=== PATIENT | female | born 1945 | race Caucasian/White ===

== ENCOUNTER 2025-02-12 14:41 | Outpatient (AMB) | payer OTHER, SELFPAY ==
--- NOTE | 2025-02-12 14:49 | A.OFFVIS_ITS ---
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 EMG/NCS done on 11/20/24. Right hand symptoms greater than left however she says the left is not too far behind from being as bad as her right hand. She expresses difficulty with dressing herself (buttoning shirt, bra, etc) and holding onto objects from lack of strength and roll form operator. Reports trouble and pain with opening jars and water bottles. She says she feels numbness and tingling in all of her bilateral digits but worse in the right 3rd, 4th, and 5th digits. She reports cramping of her right 4th digit. Her symptoms are starting to radiate up into her bilateral elbows. Patient would like to discuss surgery. Hx of type 2 diabtes, last A1c was ~7.8 less than 2 months ago. Labs are done at [facility]. Allergies gabapentin Adverse Reaction (Severe, Verified 02/12/25 14:52) Confusion HPI HPI ELECTRICAL SYSTEMS DESIGN ENGINEER: B/L hands, EMG done: Details: Maryjo is a 79 year old ambidextrous female who presents today for a new patient visit for evaluation of her bilateral upper extremities. EMG/NCS done on 11/20/24. Right hand symptoms greater than left however she says the left is not too far behind from being as bad as her right hand. She expresses difficulty with dressing herself (buttoning shirt, bra, etc) and holding onto objects from lack of strength and roll form operator. Reports trouble and pain with opening jars and water bottles. She says she feels numbness and tingling in all of her bilateral digits but worse in the right 3rd, 4th, and 5th digits. She reports cramping of her right 4th digit. Her symptoms are starting to radiate up into her bilateral elbows. Patient would like to discuss surgery. Hx of type 2 diabtes, last A1c was ~7.8 less than 2 months ago. Labs are done at [facility]. [facility] Social History (Updated 02/12/25 @ 14:53 by VARUN Cunningham) Alcohol intake: former Patient Tobacco Use Status: Former Tobacco user Current occupational status: retired Current occupation: ambidextrous/left hand favored Review of Systems Const All systems reviewed & are unremarkable except as noted in HPI and below Physical Exam Vital Signs: BMI result Body Mass Index 29.5 Extrem Other: Neuro: Decreased sensation in the median nerve distribution of bilateral hands in the office today Significant thenar wasting bilaterally, more significant on the right No evidence of intrinsic wasting. Week APB muscle firing and good finger cross. Vascular: Capillary refill brisk. ROM: There is visible and palpable locking and catching of the right ring finger in a flexed position Patient can make a fist and extend all other digits. Skin: No lacerations or abrasions noted. General: No ecchymosis. No erythema or evidence of infection. Assessment & Plan Assessment & Plan (1) Bilateral carpal tunnel syndrome: Code(s): G56.03 - Carpal tunnel syndrome, bilateral upper limbs Category: Medical (2) Trigger finger, right ring finger: Code(s): M65.341 - Trigger finger, right ring finger Category: Medical Plan 1. Right ring finger trigger finger 2. Right carpal tunnel syndrome Symptoms intermittent, daily, worse at night I educated the patient about the condition. I discussed both operative and nonoperative treatment options. The patient would like to proceed with surgery. The risks and benefits of operative treatment were discussed with the patient and the patient wishes to proceed with surgery. These risks include, but are not limited to, risk of damage to blood vessels, nerves, tendons, infection, recurrence, incomplete relief of preoperative symptoms, persistent pain, possible need for further surgery, and the risks associated with regional blocks and/or anesthesia. Plan is to take the patient to the operating room at some point in the next few weeks for the following procedures: 1. Right carpal tunnel release under local 2. Right ring finger trigger release under local All of the preoperative paperwork including the consent was discussed today. All of the patient's questions were answered in the clinic today. The patient understands that they will be in contact with our medical or surgical instrument maker to discuss scheduling their procedure. Patient reports diabetes, last A1c 7.8 Denies blood thinners, asthma, heart issues, lung issues, kidney issues, or current smoking. 2. Left carpal tunnel syndrome Symptoms intermittent daily, worse at night Patient would like to proceed with operative intervention of the right prior to any intervention of the left Patient is educated that if she is recovering well her postoperative visit, we can get her registered for left-sided surgery Patient is amenable to this plan Coding Level of Care Code New Pt Level 4 (99107) Diagnoses Bilateral carpal tunnel syndrome G56.03 Trigger finger, right ring finger M65.341
[2025-02-12 14:51] VITALS: BMI 29.5
--- OUTSIDE RECORDS SUMMARY | 2025-02-12 16:54 | XMS_ITS | Clinical Summary ---
Author Organization [facility] Address [address] [place] [address] Care Team Providers Care Programmer Operator Numerical Control Name Role Phone Unavailable Primary Care Provider Unavailabl e Allergies Active Allergy Reactions Criticality Noted Date Comments Gabapentin Other (See Comments) High 11/11/2021 Confusion, forgetfulness Orphenadrine 01/31/2007 Other 02/02/2009 Other reaction(s): GI intolerance Sugar levels spiked Oxycodone Other (See Comments) 07/08/2021 hallucinations Medications Medication Sig Dispensed Refills Start Date End Date Status Lancets MISC Use to test blood sugar TID. 100 each 5 07/16/2021 Active glucose blood (Cool Blood Glucose Test Strips) test strip Use to test blood sugar TID. 100 each 5 07/16/2021 Active Insulin Pen Needle (Pen [place]) 32G X 4 MM MISC Inject 1 Units under the skin 4 (four) times a day. 100 each 5 07/16/2021 Active SYRINGE-NEEDLE, DISP, 3 ML (B-D 3CC LUER-BLANCA SYR 25GX1 ) 25G X 1 3 ML MISC 1 Units by Does not apply route daily. 13 each 0 07/16/2021 Active B-D UF III MINI PEN NEEDLES 31G X 5 MM MISC USE DIRECTED 4 TIMES DAILY 0 11/16/2021 Active clotrimazole-betame thasone (LOTRISONE) cream Apply topically 2 (two) times a day. 30 g 0 12/14/2021 Active HumaLOG KWIKPEN 200 UNIT/ML SOPN INJECT 22 UNITS SUBQUTANEOUSLY BEFORE A MEAL THREE TIMES DAILY 0 11/29/2022 Active Lantus SoloStar 100 UNIT/ML injection ADMINISTER 30 UNITS UNDER THE SKIN AT BEDTIME 0 11/28/2022 Active ibandronate (BONIVA) 150 MG tabletIndications:A ge-related osteoporosis without current pathological fracture Take 1 tablet (150 mg total) by mouth every 30 (thirty) days. Take in AM with glass of water prior to food, don't lie down for 30 minutes. 1 tablet 3 12/15/2022 Active metroNIDAZOLE, TOPICAL, 0.75 % LOTNIndications:Ros acea Apply 1 application topically 2 (two) times a day. Apply a small amount to clean, dry face focus on forehead, temples, and cheeks 60 mL 3 12/15/2022 Active Continuous Blood Gluc Sensor (FreeStyle Talat 2 Sensor) MISCIndications:Typ e 2 diabetes mellitus without complication, without long-term current use of insulin (HCC) Inject 1 Device under the skin every 14 (fourteen) days. 3 each 4 12/15/2022 Active Continuous Blood Gluc Machinery Repair Maintenance Supervisor (FreeStyle Talat 2 [place]) DEVIIndications:Typ e 2 diabetes mellitus without complication, without long-term current use of insulin (HCC) 1 Device by Does not apply route 4 (four) times a day before meals and at bedtime. 1 each 0 12/15/2022 Active fluticasone (FLONASE) 50 MCG/ACT nasal sprayIndications:Se asonal allergies spray/apply 1 spray in each nostril daily. 16 g 3 01/10/2023 Active Multiple Vitamin (multi-vitamin) tablet Take 1 tablet by mouth daily. 30 tablet 0 04/11/2023 Active aspirin 81 MG chewable tabletIndications:A utoinflammatory syndrome, unspecified (HCC),Arthralgia of both lower legs,Essential tremor Chew 1 tablet (81 mg total) by mouth every night at bedtime. 90 tablet 1 04/11/2023 Active Nebulizers (Compressor/Nebuliz er) MISCIndications:Aut oinflammatory syndrome, unspecified (HCC),Moderate persistent asthma with acute exacerbation 1 Device by Does not apply route every 8 (eight) hours as needed (wheezing and shortness of breath). Length of use is life time 1 each 0 04/11/2023 Active pantoprazole (PROTONIX) 20 MG tabletIndications:G astroesophageal reflux disease without esophagitis Take 1 tablet (20 mg total) by mouth every morning on an empty stomach. 90 tablet 2 07/20/2023 Active levocetirizine (XYZAL) 5 MG tabletIndications:S easonal allergies Take 1 tablet (5 mg total) by mouth every evening. 90 tablet 1 07/20/2023 Active atorvastatin (LIPITOR) tablet 40 mgIndications:Mixed hyperlipidemia Take 1 tablet (40 mg total) by mouth every evening. 90 tablet 2 07/20/2023 Active Cholecalciferol (D3-1000) 25 MCG (1000 UT) capsuleIndications: Age-related osteoporosis without current pathological fracture Take 1,000 Units by mouth daily. 90 capsule 1 07/20/2023 Active cilostazol (PLETAL) 50 MG tabletIndications:A utoinflammatory syndrome, unspecified (HCC) Take 1 tablet (50 mg total) by mouth 2 (two) times a day. 180 tablet 1 07/20/2023 Active Active Problems Problem Noted Date Diagnosed Date Left lower quadrant abdominal pain 04/13/2022 Abdominal pain 03/24/2022 Diverticulosis of sigmoid colon 03/24/2022 BMI 26.0-26.9,adult 03/24/2022 PVD (peripheral vascular disease) 12/03/2021 Provoked seizure 09/14/2021 Vitamin B12 deficiency 09/14/2021 Essential tremor 09/14/2021 Syncope and collapse 07/06/2021 Bilateral carotid artery stenosis 09/04/2019 CAD (coronary artery disease) 07/31/2019 Overview: History of CABG x2 June 2016; [facility] Carotid artery stenosis, symptomatic 07/31/2019 Hx of CABG 07/31/2019 Mixed hyperlipidemia 07/30/2019 TIA (transient ischemic attack) 07/30/2019 Achilles tendonitis 11/09/2011 Essential hypertension 01/31/2011 Type 2 diabetes mellitus wit hout complication, without long-term current use of insulin 12/24/2010 Overview: Diabetes Plan of Care 06/22/2012 Plan: Pt is up to date on her DM metrics Family history of colon cancer 02/02/2009 Onychomycosis 05/09/2008 Duodenal ulcer without hemor rhage or perforation and without obstruction 11/16/2007 Immunizations Name Administration Dates Next Due Influenza Trivalent (Fluzone /Afluria) 5.0mL Multi-dose Vial 06/18/2012,07/08/2011 Influenza Vaccine, Unspecified formulation 06/11,05/11/2009,07/31/2006 Tdap 05/29/2017 Family History Medical History Relation Name Comments Diabetes Brother Heart disease Brother Hyperlipidemia Brother Hypertension Brother Cancer Mother Hypertension Mother Heart disease Sister Relation Name Status Comments Brother Alive Mother Sister Social History Tobacco Use Types Packs/Day Years Used Date Smoking Tobacco: Former Cigarettes 2 Q uit: 07/06/1998 Smokeless Tobacco: Never Tobacco Cessation:Counseling Given: Not Answered Alcohol Use Standard Drinks/Week Comments Never 0 (1 standard drink = 0.6 oz pur e alcohol) Sex and Gender Information Value Date Recorded Sex Assigned at Female 07/06/2021 12:54 PM EST Gender Identity Not on file Sexual Orientation Not on file Job Start Date Occupation Industry Not on file Not on file Not on file Last Filed Vital Signs Vital Sign Reading Time Taken Comments Blood Pressure 122/51 04/11/2023 10:57 AM EDT Pulse 71 04/11/2023 10:57 AM EDT Temperature 36.8 C (98.3 F) 07/19/2022 1:11 PM EST Respiratory Rate 16 04/11/2023 10:57 AM EDT Oxygen Saturation 98% 04/11/2023 10:57 AM EDT Inhaled Oxygen Concentration - - Weight 82.6 kg (182 lb 1 oz) 04/11/2023 10:57 AM EDT Height 167.6 cm (5' 6 ) 04/11/2023 10:57 AM EDT Body Mass Index 29.39 04/11/2023 10:57 AM EDT Plan of Treatment Health Maintenance Due Date Last Done Comments Colon Cancer Screening (FIT-DNA q3yrs) 1945 Hepatitis C Screening 1945 Pneumococcal Vaccine (1 of 2 - PCV) 12/22/1953 Diabetes: Eye Exam (No Retinopathy) 12/22/1965 Osteoporosis Screening (DEXA Scan) 12/22/2012 RSV Adult > 60+ Yrs or (1 - 1-dose 75+ series) 12/22/2022 Diabetes: Microalbumin Test 04/07/2023 04/07/2022 Hemoglobin A1C Due 06/16/2023 12/15/2022, 1 09/18/2021, 04/07/2022, Additional history exists Depression Screening 12/16/2023 12/15/2022, 12/15/2022, 07/19/2022, Additional history exists Diabetes: Foot Exam 12/16/2023 12/15/2022 Fall Risk Assessment 12/16/2023 12/15/2022, 12/15/2022, 07/19/2022, Additional history exists Preventative Health Evaluation 12/16/2023 12/15/2022, 12/15/2022, 07/19/2022, Additional history exists BMI Counseling 04/11/2024 04/11/2023, 12/26, 12/15/2022, Additional history exists COVID-19 Vaccine ( season) 2024 02/08/2021, 12/26/2020 DTap / Tdap / Td (2 - Td or Tdap) 05/29/2027 05/29/2017 Influenza Vaccine Discontinued 06/18/2012, 07/08/2011 Hepatitis B Vaccines Aged Out No long er eligible based on patient's age to complete this topic RSV Ped < 20 months Aged Out No longe r eligible based on patient's age to complete this topic Shingrix-Zoster Vaccine Discontinued Advance Directives For more information, please contact: [phone] Latest Code Status on File Code Status Date Activated Date Inactivated Comments Full Code 07/06/2021 5:04 PM 07/17/2021 3:16 AM This code status was ascertained in the following way: discussion with patient .
== END 2025-02-12 15:32 | disposition home or self-care (01) ==
LOC: HO.HOS 14:42
PROVIDERS: PCP Internal Medicine
DX: G56.03 Carpal tunnel syndrome, bilateral upper limbs (principal); M65.341 Trigger finger, right ring finger
CPT/HCPCS: 99204

== ENCOUNTER → 2025-02-12 14:41 | Outpatient (BNVA) | payer OTHER, SELFPAY | PROVIDERS: PCP Internal Medicine ==

== ENCOUNTER 2025-03-12 06:09 | Day surgery (SDC) | payer OTHER, SELFPAY ==
--- OUTSIDE RECORDS SUMMARY | 2025-02-18 14:23 | XMS_ITS | Clinical Summary ---
Author Organization [facility] Address [address] [place] [address] Care Team Providers Care Dental Instructor Name Role Phone Unavailable Primary Care Provider [...] 5 07/16/2021 Active Insulin Pen Needle (Pen [place]) 32G X 4 MM MISC Inject 1 [...] each 4 12/15/2022 Active Continuous Blood Gluc Credit Risk Modeler (FreeStyle Talat 2 [place]) DEVIIndications:Typ e 2 diabetes mellitus without complication, [...] Overview: History of CABG x2 June 2016; [facility] Carotid artery stenosis, symptomatic 07/31/2019 Hx [...] Advance Directives For more information, please contact: [phone] Latest Code Status on File Code Status Date Activated Date Inactivated Comments Full Code 07/06/2021 5:04 PM 07/17/2021 3:16 AM This code status was ascertained in the following way: discussion with patient .
[2025-03-12 07:02] VITALS: BMI 29.5
[2025-03-12 07:05] VITALS: BP 126/51; PULSE 74; RESP 18; TEMP 36.7; O2SAT 97
--- NOTE | 2025-03-12 08:33 | MHC.SHP ---
Pre-Procedural Eval Section A - 24 Hr Update-Section A only Date of Service: 03/12/25 The patient is an INPATIENT: No Changes since office visit: No Cold of Flu in the past 2 weeks, No New Medical Problems, No Changes in Medication and No Patient answered all questions The patient has been examined within 24 hours of the surgical procedure. The History & Physical has been completed within 30 days and I have reviewed it.: Yes Section B - Complete if H&P > 30 days Chief Complaint: Carpal tunnel syndrome, right upper limb Allergies: Allergies Allergy/AdvReac Type Severity Reaction Status Date / Time gabapentin AdvReac Severe Confusion Verified 03/12/25 07:08 Plan Diagnosis/Plan: Unchanged I have reviewed the history and physical and performed a pertinent physical examination on my patient. No changes have occurred unless specified. Time Spent With Patient Time: Total time managing care of this patient today ____ minutes.
--- NOTE | 2025-03-12 08:34 | P.OP_ITS ---
Operative Note Operative Note Date of Service: 03/12/25 Narrative: Preop diagnosis: 1. Right Carpal tunnel syndrome 2. Right ring finger trigger finger Postop diagnosis: same Procedure: 1. Right Carpal tunnel release 2. Right ring finger trigger release Surgeon: Carolyn Wesley MD Computer Programmer Chief: None Anesthesia: local block using 1% lidocaine with epinephrine Findings: Thickened transverse carpal ligament. EBL: Less than 5 mL Specimens: None Complications: None Disposition: Brought to recovery room in stable condition Plan: Follow-up for 10-14 days for wound check and suture removal Indications: The patient is 79 years old, with right carpal tunnel syndrome and a right ring finger trigger finger that have been unresponsive to nonoperative management. The risks and benefits of operative treatment including but not limited to risk of damage to blood vessels, nerves, tendons, infection, persistent pain, persistent symptoms, or possible need for additional surgery were discussed with the patient and the patient wishes to proceed with surgery. Procedure: Once consent was obtained a local block was performed using a combination of 1% lidocaine with epinephrine. The patient was then brought back to the operating suite and placed on the operative table in supine position. The right upper extremity was prepped and draped in a standard surgical fashion. Once assured that we had a good block, a 1.5 cm oblique incision was made centered over the A1 leighton of the right ring finger . The incision was made through the skin to the subcutaneous tissues using a #15 blade. Careful dissection was made down to the level of the A1 leighton using tenotomy scissors, with care being taken to protect the nearby neurovascular structures. A longitudinal incision was made in the A1 leighton 1st using a #15 blade, then using tenotomy scissors under direct visualization. The A1 leighton was noted to be thickened. Following our A1 leighton release, we no longer saw any locking or catching of the digit with flexion and extension. Once assured that we had a good block, a 2.0 cm longitudinal incision was made centered over the carpal tunnel. The incision was made through the skin to the subcutaneous tissues using a #15 blade. Dissection was made down to the level of the transverse carpal ligament with care being taken to protect the palmar cutaneous nerve. Once the transverse carpal ligament was clearly visualized, a longitudinal incision was made in the transverse carpal ligament 1st using a #15 blade, then using tenotomy scissors under direct visualization. Care was taken to look for and protect the motor branch of the median nerve when seen in this area. Once satisfied with our carpal tunnel release the wound was copiously irrigated with normal saline and hemostasis was obtained with a brief period of local pressure. The skin edges were reapproximated with some 5.0 nylon suture material and a sterile dressing was applied. The patient appears to have tolerated the procedure well and with no complications. All digits were well vascularized at the conclusion of the case.
--- NOTE | 2025-03-12 09:31 | PC.NURSE ---
pharmacy did not receive orders from Dr. Wesley office to mix lidocaine injections per pharmacy. Medications pulled from PACU pixus with Dr. Wesley.
[2025-03-12 09:32] VITALS: BP 107/44; PULSE 82; RESP 16; O2SAT 95
== END 2025-03-12 09:41 | disposition home or self-care (01) ==
PROVIDERS: PCP Internal Medicine; Visit Provider Orthopaedic Surgery
PROC: (CPT 64721; principal; 2025-03-12 07:30)
PROC: (CPT 26055; 2025-03-12 07:30)
DX: G56.01 Carpal tunnel syndrome, right upper limb (principal); M65.341 Trigger finger, right ring finger; R20.0 Anesthesia of skin; R20.2 Paresthesia of skin; E11.9 Type 2 diabetes mellitus without complications; Z88.8 Allergy status to other drugs, medicaments and biological substances; Z87.891 Personal history of nicotine dependence
CPT/HCPCS: 64721; 26055; J0165; J2003; J2004

== ENCOUNTER → 2025-03-12 06:09 | Outpatient (BNV) | payer OTHER, SELFPAY | PROVIDERS: PCP Internal Medicine; Visit Provider Orthopaedic Surgery | DX: G56.01 Carpal tunnel syndrome, right upper limb (principal); M65.341 Trigger finger, right ring finger | CPT/HCPCS: 26055; 64721 ==

== ENCOUNTER 2025-03-26 13:58 | Outpatient (AMB) | payer OTHER, SELFPAY ==
--- NOTE | 2025-03-26 14:07 | MHC.OFFVIS ---
Vital Signs 03/26/25 14:13 Height 5 ft 6 in Weight 184 lb BMI 29.7 Handedness Ambidextrous Intake Visit Reasons: PO-Rt CTR, Rt RF Trigger 03/12/25 Intake Note: Maryjo is a 79 year old ambidextrous female who presents today post operatively status post right carpal tunnel release and right ring finger trigger release, DOS: [address] Carolyn Wesley. Patient reports she feels pretty good. She states after this procedure she has more sensitivity in the entire right hand. Expresses her trigger finger has resolved. She is able to make a closed fist. Denies any discharge from her incisions. Sutures removed and steri strips have been applied today. Allergies gabapentin Adverse Reaction (Severe, Verified 03/26/25 14:13) Confusion HPI HPI PO-Rt CTR, Rt RF Trigger 03/12/25: Details: Maryjo is a 79 year old ambidextrous female who presents today post operatively status post right carpal tunnel release and right ring finger trigger release, DOS: [address] Carolyn Wesley. Patient reports she feels pretty good. She states after this procedure she has more sensitivity in the entire right hand. Expresses her trigger finger has resolved. She is able to make a closed fist. Denies any discharge from her incisions. Reports ongoing numbness and tingling in the left hand, expresses interest in surgical intervention for this side. Sutures removed and steri strips have been applied today. [facility] Medical History (Updated 03/12/25 @ 07:07 by Lakeisha Cheek RN) Hypertension Diabetes Hypercholesteremia Surgical History (Updated 03/26/25 @ 14:16 by VARUN Cunningham) Status post trigger finger release Status post carpal tunnel release Hx of CABG Hx of cardiac catheterization Social History Household Members Other:: lives in an in-law apartment at daughter's home Are you a primary customer care manager to a significant other at home: No Do you presently have visiting nurse or other home services: No Alcohol intake: former Patient Tobacco Use Status: Former Tobacco user Current occupational status: retired Current occupation: ambidextrous/left hand favored Review of Systems Const All systems reviewed & are unremarkable except as noted in HPI and below Physical Exam Vital Signs: BMI result Body Mass Index 29.7 Extrem Other: Neuro: Decreased sensation in the median nerve distribution of bilateral hands in the office today, her right side does have improved sensation from prior to surgery Significant thenar wasting bilaterally, more significant on the right No evidence of intrinsic wasting. Week APB muscle firing and good finger cross. Vascular: Capillary refill brisk. ROM: There is no further visible and palpable locking and catching of the right ring finger in a flexed position Patient can make a fist and extend all digits. Skin: Well approximated and well healing incision sites noted on volar right wrist and over A1 leighton right ring finger No lacerations or abrasions noted. General: No ecchymosis. No erythema or evidence of infection. Assessment & Plan Assessment & Plan (1) Trigger finger, right ring finger: Code(s): M65.341 - Trigger finger, right ring finger Category: Medical (2) Bilateral carpal tunnel syndrome: Code(s): G56.03 - Carpal tunnel syndrome, bilateral upper limbs Category: Medical Plan 1. Carpal tunnel syndrome, left Symptoms intermittent, daily, worse at night I educated the patient about the condition. I discussed both operative and nonoperative treatment options. The patient would like to proceed with surgery. The risks and benefits of operative treatment were discussed with the patient and the patient wishes to proceed with surgery. These risks include, but are not limited to, risk of damage to blood vessels, nerves, tendons, infection, recurrence, incomplete relief of preoperative symptoms, persistent pain, possible need for further surgery, and the risks associated with regional blocks and/or anesthesia. Plan is to take the patient to the operating room at some point in the next few weeks for the following procedures: 1. Left carpal tunnel release under local All of the preoperative paperwork including the consent was discussed today. All of the patient's questions were answered in the clinic today. The patient understands that they will be in contact with our automatic fabric cutter to discuss scheduling their procedure. Patient reports diabetes, last A1c 7.6 Denies blood thinners, asthma, heart issues, lung issues, kidney issues, or current smoking. 2. Carpal tunnel syndrome, right, status post carpal tunnel release 3. Status post right ring finger trigger release DOS 03/12/2025 Patient appears to be recovering well postoperatively Patient is educated about the typical recovery course No acute follow-up indicated, as patient appears to be recovering very well Patient is amenable to this plan Coding Level of Care Code Est Pt Level 4 (60226) Diagnoses Trigger finger, right ring finger M65.341 Bilateral carpal tunnel syndrome G56.03
[2025-03-26 14:13] VITALS: BMI 29.7
--- OUTSIDE RECORDS SUMMARY | 2025-03-26 14:40 | XMS_ITS | Clinical Summary ---
Author Organization [facility] Address [address] [place] [address] Care Team Providers Care Secretary To Board Of Commissioners Name Role Phone Unavailable Primary Care Provider [...] 5 07/16/2021 Active Insulin Pen Needle (Pen [place]) 32G X 4 MM MISC Inject 1 [...] each 4 12/15/2022 Active Continuous Blood Gluc Forest Nursery Supervisor (FreeStyle Talat 2 [place]) DEVIIndications:Typ e 2 diabetes mellitus without complication, [...] Advance Directives For more information, please contact: [phone] Latest Code Status on File Code Status Date Activated Date Inactivated Comments Full Code 07/06/2021 5:04 PM 07/17/2021 3:16 AM This code status was ascertained in the following way: discussion with patient .
--- OUTSIDE RECORDS SUMMARY | 2025-03-26 14:40 | XMS_ITS ---
Author Name [facility] Organization Unknown Results Test Name/Text Value Interpretation Date Range Source COLLAGEN TYPE I C-TELOPEPTIDE 461.0 pg/mL Normal 09/29/2023 - [facility] CALCIUM 9.6 mg/dL Normal 09/19/2023 8.5 - 10.1 [facility] CHLORIDE 108.0 mmol/L Above high normal 09/19/2023 98 - 107 [facility] ALBUMIN 3.6 g/dL Normal 09/19/2023 3.4 - 5 [facility] BUN 31.0 mg/dL Above high normal 09/19/2023 7 - 18 [facility] A/G RATIO 1.0 g/dL Normal 09/19/2023 [facility] AST (SGOT) 14.0 U/L Below low normal 09/19/2023 15 - 37 C [facility] CO2 29.0 mmol/L Normal 09/19/2023 21 - 32 [facility] BUN/CREAT.RATIO 23.3 Normal 09/19/2023 [facility] PROTEIN, TOTAL 7.1 g/dL Normal 09/19/2023 6.4 - 8.2 [facility] ALKALINE PHOSPHATASE 53.0 U/L Normal 09/19/2023 50 - 136 [facility] CREATININE 1.33 mg/dL Above high normal 09/19/2023 0.55 - 1. 3 [facility] SODIUM 142.0 mmol/L Normal 09/19/2023 136 - 145 [facility] GLUCOSE 109.0 mg/dL Above high normal 09/19/2023 74 - 100 [facility] ALT (SGPT) 21.0 U/L Normal 09/19/2023 12 - 78 [facility] POTASSIUM SERUM 4.4 mmol/L Normal 09/19/2023 3.5 - 5.1 [facility] GLOBULIN 3.5 g/dL Normal 09/19/2023 2.4 - 4.2 [facility] BILIRUBIN,TOTAL 0.7 mg/dL Normal 09/19/2023 0.2 - 1 [facility] PATIENT FASTING? NO Normal [facility]19[facility] WITH [facility]FLEX T4 FREE 1.51 uIU/mL Normal 09/19/2023 0.3 5 - 4.5 [facility] VITAMIN D (25-HYDROXY) 29.6 ng/mL Below low normal 30 - 100 [facility] GFRE 41.0 Below low normal 09/19/2023 60 [facility] MICROALB[facility] RATIO 9.5 ug/mg CR Normal 09/19/2023 - 30 [facility] CREATININE URINE 116.0 mg/dL Normal 09/19/2023 [facility] MICROALBUMIN,URINE 1.1 mg/dL Normal 09/19/2023 [facility] Encounters Encounter Type Encounter Reason Primary Diagnosis Location Date Ambulatory [facility] 09/21/2023 Ambulatory [facility] 09/19/2023 Care Team Organization Name Specialty Phone Email Start Date End Da shauna [facility] Manager ([facility]) NAVEEN Executive Staff Assistant 12/25/2024 [facility] No provided Primary Care 09/21/2023 [facility] SANGITA HODGE-SAYED Primary [facility]
--- OUTSIDE RECORDS SUMMARY | 2025-03-26 14:40 | XMS_ITS | Patient Health Record ---
Author Organization [facility] Address [address] [place] [address] Care Team Providers Care Truck Bench Mechanic Name Role Phone BOONE MENDIOLA DO Primary Care Provider Dean Wang Unavailable [phone] CHAS BROCK MD Unavailable Unavailable Reason For Referral No Information Medications Medication SIG (Take, Route, Frequency, Duration) Notes Start Date End Date Status glipiZIDE 10 MG 1 tablet 30 minutes before breakfast Orally Once a day Active metFORMIN HCl 1000 MG 1 tablet with a me al Orally Once a day Active Atenolol 50 MG 1 tablet Orally Once a day Active Furosemide 20 MG 1 tablet Orally Once a day; Duration: 30 day(s) Active Famotidine 20 MG 1 tablet at bedtime as needed Orally Once a day Active Atorvastatin Calcium 40 MG 1 tablet Oral ly Once a day Active Cilostazol 100 MG 1 tablet 30 minutes before or 2 hours after breakfast and dinner Orally Twice a day Active Meclizine HCl 25 MG 1 tablet as needed O rally Once a day Active Aspirin Adult 325 MG 1 tablet Orally Onc e a day Active Gabapentin 100 MG 1 capsule Orally Onc e a day Active Social History Tobacco Use: Social History Observation Description Date Details (start date - stop date) Never Smoker NA - NA Smoking: Question Answer Notes Are you a: nonsmoker quit in 1994 Problems Problem Type SNOMED Code ICD Code Onset Dates Problem Status W/U Status Risk Notes Problem Peripheral vascular disease (914656281) PAD (peripheral artery disease) (I73.9) Active confirmed Problem Arteriosclerosis of coronary artery bypass graft (737127993) 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 (I25.810) Active confirmed Problem Hyperlipidaemia (95316507) Hyperlipidemia, unspecified hyperlipidemia type (E78.5) Active confirmed Problem Type 2 diabetes mellitus with peripheral angiopathy (531046254) Type 2 diabetes mellitus with diabetic peripheral angiopathy without gangrene, without long-term current use of insulin (E11.51) Active confirmed Problem Mixed hyperlipidemia (005763895) Mixed dyslipidemia (E78.2) Active confirmed Plan Of Treatment Future Test Test Name Order Date Echocardiogram 04/07/2020 L CATH W/GRAPH 04/07/2020 Insurance Providers Payer Name Payer Address Payer Phone Subscriber Number Group Number Insured Name Patient Relationship to Insured Coverage Start Date Coverage End Date [employer] GOLD PLUS [place] [address] [address] [place] [address] [phone] [id number] NICOLAS PERALTA Self - patient is the insured MEDICAID TMHP [address] [place], [place] [id number] NICOLAS PERALTA Self - patient is the insured Medical (General) History Medical History History ICD Code TIA (transient ischemic attack) TIA (transient ischemic attack) G45.9 Surgical History Surgery Date(Month/Year) vaginal delivery 1985 Hospitalization History Reason Date(Month/Year) TIA 07/2019
--- OUTSIDE RECORDS SUMMARY | 2025-03-26 14:41 | XMS_ITS | Patient Health Record ---
Author Organization [facility], Address [address] [facility] Rachel Claudio [place] [id number] Support Name Relationship Address Phone Maryjo Lagunas Guarantor Unknown [phone] Reason For Referral No Information Medications Medication SIG (Take, Route, Frequency, Duration) Notes Start Date End Date Status Glimepiride 4 MG 2 tablets Oral Once a day Active Metoprolol Tartrate 25 MG Oral; Duration: 90 Active Atorvastatin Calcium 40 MG 1 tablet Oral Once a day Active metFORMIN HCl 1000 MG 1 tablet with meal s Oral Twice a day Active Furosemide 20 MG 1 tablet Orally Once a day Active Famotidine 20 MG 1 tablet Oral Twice a day Active Aspirin 81 MG 1 tablet Orally Once a day; Duration: 30 day(s) Active Farxiga 5 MG 1 tablet Oral Once a day Active Problems Problem Type SNOMED Code ICD Code Onset Dates Problem Status W/U Status Risk Notes Problem Essential hypertension (64565361) Essential hypertension (I10) Active confirmed Problem Dyslipidemia (708331347) Dyslipidemia (E78.5) Active confirmed Problem Atherosclerotic heart disease of [place] coronary artery without angina pectoris (834377263759207) CAD in [place] artery (I25.10) Active confirmed Problem Tachycardia (5738512) Tachycardia (R00.0) Active confirmed Problem Mitral valve disorder (19861804) Mitral valve disorder (I05.9) Active confirmed Plan Of Treatment No Information
== END 2025-03-26 15:02 | disposition home or self-care (01) ==
LOC: HO.HOS 13:59
PROVIDERS: PCP Internal Medicine
DX: G56.03 Carpal tunnel syndrome, bilateral upper limbs (principal); M65.341 Trigger finger, right ring finger
CPT/HCPCS: 99214

== ENCOUNTER → 2025-03-26 13:58 | Outpatient (BNVA) | payer OTHER, SELFPAY | PROVIDERS: PCP Internal Medicine | DX: M65.341 Trigger finger, right ring finger (principal); G56.03 Carpal tunnel syndrome, bilateral upper limbs; Z98.890 Other specified postprocedural states | CPT/HCPCS: 99212 ==

== ENCOUNTER 2025-05-05 06:48 | Day surgery (SDC) | payer OTHER, SELFPAY ==
--- OUTSIDE RECORDS SUMMARY | 2025-03-28 09:30 | XMS_ITS | Encounter Summary ---
Author Organization [facility] Address [address] [place] [address] Care Team Providers Care Fuels Sales Representative Name Role Phone Maria Lloyd MD Primary Care Provider [phone] Reason for Visit * Reason Comments Peripheral Vascular Disease Encounter Details Date Type Department Care Team ([facility] st Contact Info) Description 03/28/2025 9:30 AM EDT Office Visit Vascular Surgery - [facility] [address] [place] [address] Doc Lantigua MD [address] [place] [address] Social History Tobacco Use Types Packs/Day Years Used Date Smoking Tobacco: Former Cigarettes Q uit: 07/06/1998 Smokeless Tobacco: Never Alcohol Use Standard Drinks/Week Comments Not Currently 0 (1 standard drink = 0.6 oz pur e alcohol) Housing Instability Answer Date Recorde d Are you worried that in the next 2 months you may not have stable housing? No 11/24/2024 Food Access & Nutrition Answer Date Rec orded Do you have access to a vari ety of food including fruits and vegetables? Yes 11/24/2024 Access to Healthcare Answer Date Record ed Within the last 3 months, shira w many times did you visit the emergency department for your medical care? 2 11/24/2024 Health Literacy Answer Date Recorded How often do you need to hav e someone help you when you read instructions, pamphlets, or other written material from your doctor or pharmacy? Rarely 11/24/2024 Caregiver: How often do you need to have someone help you when you read instructions, pamphlets, or other written material from your doctor or pharmacy? Not on file 11/24/2024 Financial Risk Answer Date Recorded How hard is it for you to pa y for the very basics like food, housing, medical care, and air conditioning / heating? Not very hard 11/24/2024 Transportation Answer Date Recorded Has the lack of transportati on kept you from meetings, work, or from getting things needed for daily living? No Has the lack of transportati on kept you from medical appointments or from getting medications? No 11/24/2024 Social Isolation Answer Date Recorded How often do you feel lonely or isolated from those around you? Sometimes 11/24/2024 Food Risk Answer Date Recorded Within the past 12 months we worried whether our food would run out before we got money to buy more. Never true 11/24/2024 Within the past 12 months th e food we bought just didn't last and we didn't have money to get more. Never true 11/24/2024 Dependent Care Answer Date Recorded Do you need help finding or paying for care for your loved ones. For example, child support specialist or elderly care for an older adult? No 11/24/2024 Education Answer Date Recorded Do you think completing more education or training, like finishing a GED, going to college, or learning a trade, would be helpful for you? Yes 11/24/2024 Employment and Income Answer Date Recor ded During the last four weeks, have you been actively looking for work? No 11/24/2024 Living Situation Answer Date Recorded What is your living situation? 0 11/24/2024 Comments No Sex and Gender Information Value Date Recorded Sex Assigned at Female 01/30/2025 4:16 PM EDT Legal Sex Female 12:34 PM EST Gender Identity Female 01/30/2025 4:16 PM EDT Sexual Orientation Straight 01/30/2025 4: 16 PM EDT documented as of this encounter Last Filed Vital Signs Vital Sign Reading Time Taken Comments Blood Pressure 136/66 03/28/2025 9:06 AM EDT Pulse 80 03/28/2025 9:06 AM EDT Temperature - - Respiratory Rate 16 03/28/2025 9:06 AM EDT Oxygen Saturation - - Inhaled Oxygen Concentration - - Weight 83.9 kg (185 lb) 03/28/2025 9:06 AM EDT Height 167.6 cm (5' 6 ) 03/28/2025 9:06 AM EDT Body Mass Index 29.86 03/28/2025 9:06 AM EDT documented in this encounter Ordered Prescriptions Prescription Sig Dispense Quantity Refills Last Filled Start Date End Date cilostazoL (PLETAL) 100 mg tablet Take 1 tablet (100 mg total) by mouth 2 (two) times a day. To be started after completing the 50mg two times a day. 60 each 11 03/28/2025 documented in this encounter Plan of Treatment Upcoming Encounters Date Type Department Care Team (Late st Contact Info) Description 04/01/2025 11:00 AM EDT Office Visit Adult Medicine [address] [address] Flaco Lomas PA [address] [place] [address] 04/29/2025 11:00 AM EDT Office Visit Orthopedic Surgery [facility] [address] [address] Christopher Arshad DPM [address] [address] 05/27/2025 11:30 AM EDT Nutrition Internal Medicine - [facility] 175 [facility] [address] [place] [phone] Dorinda Cedeño, LALO [address] [place] [phone] 07/04/2025 10:00 AM EST Office Visit Vascular Surgery - [facility] [address] [address] Doc Lantigua MD [address] [address] 08/26/2025 2:00 PM EST Office Visit Endocrinology [address] [address] Yue Lloyd PA [address] [place] [address] Arrived 11/27/2025 10:45 AM EDT Ancillary Procedure [facility] [address] [place] [address] documented as of this encounter Visit Diagnoses Not on filedocumented in this encounter Discontinued Medications Medication Sig Discontinue Reason Start Date End Da te cilostazoL (PLETAL) 50 mg tabletIndications:Caroti d stenosis, asymptomatic, bilateral TAKE 1 TABLET BY MOUTH TWICE DAILY Alternate therapy 11/25/2024 03/28/2025 documented as of this encounter Additional Health Concerns Assessment Noted Time PHQ-9 Depression Total Score: 1 11/25/19 25 1:11 PM EDT documented as of this encounter Care Teams Fuels Sales Representative Relationship Specialty Start Date End Date Maria Lloyd MD [address] [place] [id number] PCP - General 07/19/23 documented as of this encounter
--- OUTSIDE RECORDS SUMMARY | 2025-03-31 12:40 | XMS_ITS | Patient Health Record ---
Author Organization [facility], Address [address] [facility] Rachel [place] [id number] Support Name Relationship Address Phone Maryjo Lagunas Guarantor Unknown [phone] Reason For Referral No Information Medications Medication [...] W/U Status Risk Notes Problem Essential hypertension (98795808) Essential hypertension (I10) Active confirmed Problem Dyslipidemia (440857408) Dyslipidemia (E78.5) Active confirmed Problem Atherosclerotic heart disease of [place] coronary artery without angina pectoris (437385923798403) CAD in [place] artery (I25.10) Active confirmed Problem Tachycardia (6808934) Tachycardia (R00.0) Active confirmed Problem Mitral valve disorder (83759627) Mitral valve disorder (I05.9) Active confirmed Plan Of Treatment No Information
--- OUTSIDE RECORDS SUMMARY | 2025-03-31 12:40 | XMS_ITS | Clinical Summary ---
Author Organization [facility] Address [address] [place] [address] Care Team Providers Care Pumper Head Name Role Phone Unavailable Primary Care Provider [...] 5 07/16/2021 Active Insulin Pen Needle (Pen [place]) 32G X 4 MM MISC Inject 1 [...] each 4 12/15/2022 Active Continuous Blood Gluc Retail Attendant (FreeStyle [place] 2 [place]) DEVIIndications:Typ e 2 diabetes mellitus without complication, [...] Overview: History of CABG x2 June 2016; [facility] Carotid artery stenosis, symptomatic 07/31/2019 Hx of [...] Advance Directives For more information, please contact: [phone] Latest Code Status on File Code Status Date Activated Date Inactivated Comments Full Code 07/06/2021 5:04 PM 07/17/2021 3:16 AM This code status was ascertained in the following way: discussion with patient .
--- OUTSIDE RECORDS SUMMARY | 2025-03-31 12:40 | XMS_ITS | Patient Health Record ---
Author Organization [facility] Address [address] [place] [address] Care Team Providers Care Special Skills Officer Name Role Phone BOONE MENDIOLA DO Primary Care Provider Dean Wang Unavailable [phone] CHAS BROCK MD Unavailable Unavailable Reason For [...] Status Risk Notes Problem Peripheral vascular disease (491857454) PAD (peripheral artery disease) (I73.9) Active confirmed Problem Arteriosclerosis of coronary artery bypass graft (540229631) 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 (I25.810) Active confirmed Problem Hyperlipidaemia (17971770) Hyperlipidemia, unspecified hyperlipidemia type (E78.5) Active confirmed Problem Type 2 diabetes mellitus with peripheral angiopathy (444359147) Type 2 diabetes mellitus with diabetic peripheral angiopathy without gangrene, without long-term current use of insulin (E11.51) Active confirmed Problem Mixed hyperlipidemia (619981536) Mixed dyslipidemia (E78.2) Active confirmed Plan Of Treatment Future Test Test Name Order Date Echocardiogram 04/07/2020 L CATH W/GRAPH 04/07/2020 Insurance Providers Payer Name Payer Address Payer Phone Subscriber Number Group Number Insured Name Patient Relationship to Insured Coverage Start Date Coverage End Date [employer] GOLD PLUS [address] [address] [place] [address] [id number] NICOLAS PERALTA Self - patient is the insured MEDICAID TMHP [address] [place], [place] [id number] [phone] [id number] NICOLAS PERALTA Self - patient is the insured Medical (General) History Medical History History ICD Code TIA (transient ischemic attack) TIA (transient ischemic attack) G45.9 Surgical History Surgery Date(Month/Year) vaginal delivery 1985 Hospitalization History Reason Date(Month/Year) TIA 07/2019
[2025-05-05 07:12] VITALS: BP 123/57; PULSE 88; RESP 16; TEMP 36.6; O2SAT 96
--- NOTE | 2025-05-05 07:49 | MHC.SHP ---
Pre-Procedural Eval Section A - 24 Hr Update-Section A only Date of Service: 05/05/25 The patient is an INPATIENT: No Changes since office visit: No Cold of Flu in the past 2 weeks, No New Medical Problems, No Changes in Medication and No Patient answered all questions The patient has been examined within 24 hours of the surgical procedure. The History & Physical has been completed within 30 days and I have reviewed it.: Yes Section B - Complete if H&P > 30 days Chief Complaint: Carpal tunnel syndrome, left upper limb Allergies: Allergies Allergy/AdvReac Type Severity Reaction Status Date / Time gabapentin AdvReac Severe Confusion Verified 03/26/25 14:13 Plan Diagnosis/Plan: Unchanged I have reviewed the history and physical and performed a pertinent physical examination on my patient. No changes have occurred unless specified. Time Spent With Patient Time: Total time managing care of this patient today ____ minutes.
--- NOTE | 2025-05-05 07:50 | W.PM.OPN ---
Operative Note Operative Note Date of Service: 05/05/25 Narrative: Preop diagnosis: 1. Left Carpal tunnel syndrome Postop diagnosis: same Procedure: 1. Left Carpal tunnel release Surgeon: Carolyn Wesley MD [place] Instructor: None Anesthesia: local block using 1% lidocaine with epinephrine Findings: Thickened transverse carpal ligament. EBL: Less than 5 mL Specimens: None Complications: None Disposition: Brought to recovery room in stable condition Plan: Follow-up for 10-14 days for wound check and suture removal Indications: The patient is 79 years old, with left carpal tunnel syndrome that has been unresponsive to nonoperative management. The risks and benefits of operative treatment including but not limited to risk of damage to blood vessels, nerves, tendons, infection, persistent pain, persistent symptoms, or possible need for additional surgery were discussed with the patient and the patient wishes to proceed with surgery. Procedure: Once consent was obtained a local block was performed using a combination of 1% lidocaine with epinephrine. The patient was then brought back to the operating suite and placed on the operative table in supine position. The left upper extremity was prepped and draped in a standard surgical fashion. Once assured that we had a good block, a 2.0 cm longitudinal incision was made centered over the carpal tunnel. The incision was made through the skin to the subcutaneous tissues using a #15 blade. Dissection was made down to the level of the transverse carpal ligament with care being taken to protect the palmar cutaneous nerve. Once the transverse carpal ligament was clearly visualized, a longitudinal incision was made in the transverse carpal ligament 1st using a #15 blade, then using tenotomy scissors under direct visualization. Care was taken to look for and protect the motor branch of the median nerve when seen in this area. Once satisfied with our carpal tunnel release the wound was copiously irrigated with normal saline and hemostasis was obtained with a brief period of local pressure. The skin edges were reapproximated with some 5.0 nylon suture material and a sterile dressing was applied. The patient appears to have tolerated the procedure well and with no complications. All digits were well vascularized at the conclusion of the case.
--- NOTE | 2025-05-05 09:02 | PC.NURSE ---
POST OP VITAL SIGNS; HR 74, O2 95%, BP 122/54.
== END 2025-05-05 09:01 | disposition home or self-care (01) ==
PROVIDERS: PCP Internal Medicine; Visit Provider Orthopaedic Surgery
PROC: (CPT 64721; principal; 2025-05-05 08:10)
DX: G56.02 Carpal tunnel syndrome, left upper limb (principal); R20.0 Anesthesia of skin; R20.2 Paresthesia of skin; I10 Essential (primary) hypertension; E78.00 Pure hypercholesterolemia, unspecified; E11.9 Type 2 diabetes mellitus without complications; Z88.8 Allergy status to other drugs, medicaments and biological substances; Z98.890 Other specified postprocedural states; Z95.1 Presence of aortocoronary bypass graft; Z87.891 Personal history of nicotine dependence
CPT/HCPCS: 64721; J0165; J2003

== ENCOUNTER → 2025-05-05 06:48 | Outpatient (BNV) | payer OTHER, SELFPAY | PROVIDERS: PCP Internal Medicine; Visit Provider Orthopaedic Surgery | DX: G56.02 Carpal tunnel syndrome, left upper limb (principal) | CPT/HCPCS: 64721 ==

== ENCOUNTER 2025-05-23 09:42 | Outpatient (AMB) | payer OTHER, SELFPAY ==
--- OUTSIDE RECORDS SUMMARY | 2021-07-08 10:13 | XMS_ITS | Continuity of Care Document ---
Author Organization [facility] Address [address] [place] [address] Phone Care Team Providers Care Cabinet And Trim Installer Name Role Phone Billy Del Cid MD Unavailable Allergies, Adverse Reactions, Alerts Substance Reaction Status Criticality No Known Allergies Active No Inform ation Medications Medication Instructions Dosage Effective Dates (start - stop) Status Comments Plavix 75 mg tablet take 1 tablet by ora l route every day 75 MG - Active famotidine 20 mg tablet take 1 tablet by oral route 2 times every day 20 MG - Active metoprolol tartrate 25 mg tablet take 1 tablet by oral route 2 times every day 25 MG - Active aspirin 81 mg tablet,delayed release take 1 tablet by oral route every day 81 MG - Active metformin 1,000 mg tablet take 1 tablet by oral route 2 times every day with morning and evening meals 1000 MG - Active atorvastatin 40 mg tablet take 1 tablet by oral route every day 40 MG - Active glyburide 5 mg tablet take 1 tablet by o ral route 2 times every day before breakfast 5 MG - Active Multiple Vitamins tablet take 1 tablet by oral route every day with food - Active Procedures Procedure Date Postop Follow-Up Visit Kike Workstreamer Postop Follow-Up Visit Kike Workstreamer Init Hosp Compreh His/Exam High Complex CABG, arterial, single arterial graft Ju CABG, artery-vein, single vein graft Jan Advance Directives Directive Yes / No Effective Date File Name No Information Encounters Encounter Description Practice Location Reason(s) For Visit Diagnoses Date Provider Providers Copied on Encounter [facility], [address], [place], [place], [id number], [place] tel:[phone] Nehemias No Information Nehemias Cervantes. [address] [facility], [address], [place], [place], [id number], [place]. tel:[phone] [facility], [address], [place], [place], [id number], [place] tel:[phone] [facility] Follow Up (chief complaint) Athscl heart disease of [place] cor art w unsp ang pctrsPresence of aortocoronary bypass graft Sandra OLD S M. [address] [place] [address], [id number], [place]. tel:[phone] Referring Provider: [address], [place], [address]. tel:[phone] [facility], [address], [place], [place], [id number], [place] tel:[phone] [facility] Follow Up (chief complaint) Athscl heart disease of [place] cor art w unsp ang pctrsPresence of aortocoronary bypass graft sherie OLD S M. [address], [place], [id number], [place]. tel:[phone] Referring Provider: [address], [place], [address]. tel:[phone] Init Hosp Compreh His/Exam High Complex [facility] [address], [place], [place], [id number], [place] tel:[phone] [facility] Athscl heart disease of [place] cor art w unsp ang pctrs Sandra Rivera M. [address] [facility] [place], [place], [id number], [place]. tel:[phone] Referring Provider: Tracy Ramires, [address], [place], [address]. tel:[phone] Family History Family Member Type Diagnosis Age At Onset Mother Problem (finding) Cancer, skin Brother Problem (finding) coronary arterioscleros is Father Problem (finding) Enlarged Heart Mother Problem (finding) coronary arterioscleros is Brother Problem (finding) malignant neoplasm of t estis Payers Payer name Insurance type Covered alliance party ID Authoriza tion(s) No Information Social History Type Description Quantity Date Captured Comments Sex Female Smoking Status No Information Chief Complaint And Reason For Visit No Information Reason For Referral Reason For Referral No Information Plan Of Treatment Date Type Action Status Goal Lifestyle education regardin g diet completed History Of Present Illness Encounter Date Complaint History Of Prese nt Illness Follow Up Ms Lagunas is here today for 3 month routine post op s/p CABGx2 on 02/08/2016. She denies of any chest pains sob or le edema. Her appetite is good as well as her sleep. She walks an average of 1 mile daily with no trouble. Follow Up Ms Lagunas is here today for routine post op s/p CABGx2 on 02/08/2016. She denies of any chest pains sob or le edema. Her appetite is good as well as her sleep. She walks an average of 1/2 mile daily with no trouble. Her incisions have healed very well with no redness irritation or drainage problems. Functional Status Date Functional Assessmen t No Information Instructions Date Instruction Additional Infor mation Lifestyle education regarding di et Related to Body mass index (BMI) 28.0-28.9, adult resume normal activities Related to Presence of aortocoronary bypass graft daily exercises Related to Prese nce of aortocoronary bypass graft Assessments Type Assessment Date No Information Patient Care Teams Name Effective Dates (start - stop) Status Members No Information
--- NOTE | 2025-05-23 09:51 | A.OFFVIS_ITS ---
Vital Signs 05/23/25 09:53 Height 5 ft 6 in Weight 185 lb BMI 29.9 Intake Visit Reasons: PO-Lt CTR 05/05/25 Intake Note: Maryjo is a 79 year old ambidextrous female who presents today post-operatively status post Left Carpal Tunnel Release performed by Dr. Wesley on 05/05/25. Patient reports she is very sensitive to the touch. She denies any numbness or tingling. She is currently taking Tylenol with mild relief. Sutures removed and steri strips applied. Allergies gabapentin Adverse Reaction (Severe, Verified 05/23/25 09:53) Confusion HPI HPI PO-Lt CTR 05/05/25: Details: Maryjo is a 79 year old ambidextrous female who presents today post-operatively status post Left Carpal Tunnel Release performed by Dr. Wesley on 05/05/25. Patient reports she is very sensitive to the touch. She denies any numbness or tingling. She is currently taking Tylenol with mild relief. Sutures removed and steri strips applied. [facility] Medical History (Updated 03/12/25 @ 07:07 by Lakeisha Cheek RN) Hypertension Diabetes Hypercholesteremia Surgical History (Updated 03/26/25 @ 14:16 by VARUN Cunningham) Status post trigger finger release Status post carpal tunnel release Hx of CABG Hx of cardiac catheterization Social History Household Members Other:: lives in an in-law apartment at daughter's home Are you a primary home care associate to a significant other at home: No Do you presently have visiting nurse or other home services: No Alcohol intake: former Patient Tobacco Use Status: Former Tobacco user Current occupational status: retired Current occupation: ambidextrous/left hand favored Review of Systems Const All systems reviewed & are unremarkable except as noted in HPI and below Physical Exam Vital Signs: BMI result Body Mass Index 29.9 Extrem Other: Patient is alert, oriented, and in no acute distress. Neuro: Normal sensation of the tips of all digits of the left hand at this time Vascular: Cap refill brisk Pain: Mild tenderness to palpation about the incision site on left wrist ROM: Patient is able to make a closed fist and extend all digits of the left hand fully and without difficulty Skin: No lacerations or abrasions. General: No ecchymosis, erythema, or evidence of infection. Psych: Appears grossly normal Affect normal Attitude cooperative Assessment & Plan Assessment & Plan (1) Bilateral carpal tunnel syndrome: Code(s): G56.03 - Carpal tunnel syndrome, bilateral upper limbs Category: Medical Plan 1. Status post left carpal tunnel release DOS 05/05/2025 With good symptom resolution postoperatively Patient appears to be recovering well postoperatively Patient is educated about the typical recovery course No under water times one-week, 2 lb weight limit x2 weeks No evidence of infection Sutures removed, stairs applied No acute follow-up indicated, follow-up as needed Coding Level of Care Code Global (51120) Diagnoses Bilateral carpal tunnel syndrome G56.03
[2025-05-23 09:53] VITALS: BMI 29.9
--- OUTSIDE RECORDS SUMMARY | 2025-05-23 10:44 | XMS_ITS | Encounter Summary ---
Author Organization [facility] Address [address] [place] [address] Care Team Providers Care Dietetics Professor Name Role Phone Maria Lloyd MD Primary Care Provider [phone] Reason for Visit * Reason Onset Date Comments Advice Only 05/16/2025 Encounter Details Date Type Department Care Team ([facility] st Contact Info) Description 05/16/2025 Telephone Adult Medicine [facility] [address] [place] [address] Maria Lloyd MD [address] [place], [place] Social History Tobacco Use Types Packs/Day Years [...] for your loved ones. For example, child therapist or elderly care for an older adult? [...] PM EDT documented as of this encounter Progress Notes * Susana Everett MA - 05/19/2025 9:10 AM EDT L/m stating no medical records from [place] are in pt's chart. * Quentin Houston - 05/16/2025 4:22 PM EDT Patient called and would like to know if we had received her pcp notes from her previous pcp facility in [place] , please advise documented in this encounter Plan of Treatment Upcoming Encounters Date Type Department Care Team (Late st Contact Info) Description 05/27/2025 11:30 AM EDT Nutrition Internal Medicine - [place] [address] [facility] [address] [place] [address] Dorinda Cedeño, RD [address] [place] [phone] 06/03/2025 10:00 AM EDT Evaluation Outpatient Rehabilitation - [address] [phone] Christopher Benz, PT 07/29/2025 1:15 PM EST Office Visit Orthopedic Surgery [facility] [address] [facility] [address] [place] [address] Christopher Arshad, DPM 175 [facility] [address] [place] [address] 08/08/2025 11:30 AM EST Office Visit Vascular Surgery - [place] [address] [facility] [address] [place] [address] Doc Lantigua MD [address] [place] [address] 08/20/2025 4:30 PM EST Office Visit [facility] [place] - [address] [phone] Maria Lloyd MD [address] [place] [address] 08/26/2025 2:00 PM EST Office Visit Endocrinology - [place] [address] [place] [address] Yue Lloyd PA [address] [place], [place] 11/27/2025 10:45 AM EDT Ancillary Procedure [facility] - [address] [place] [address] documented as of this encounter Visit Diagnoses Not on filedocumented in this encounter Additional Health Concerns Assessment Noted Time PHQ-9 Depression Total Score: 1 11/25/19 25 1:11 PM EDT documented as of this encounter Care Teams Dietetics Professor Relationship Specialty Start Date End Date Maria Lloyd MD [address] [place] [phone] PCP - General 07/19/23 documented as of this encounter
--- OUTSIDE RECORDS SUMMARY | 2025-05-23 10:44 | XMS_ITS | Clinical Summary ---
Author Organization [facility] Address [address] [place] [address] Care Team Providers Care Technical Support Professional Name Role Phone Unavailable Primary Care Provider [...] 5 07/16/2021 Active Insulin Pen Needle (Pen Bedias) 32G X 4 MM MISC Inject 1 [...] each 4 12/15/2022 Active Continuous Blood Gluc Calendering Machine Operator (FreeStyle Talat 2 [place]) DEVIIndications:Typ e 2 diabetes mellitus without complication, [...] of CABG x2 June 2016; [facility] Carotid artery stenosis, symptomatic 07/31/2019 Hx [...] Additional history exists COVID-19 Vaccine ( season) 2025 02/08/2021, 12/26/2020 DTap / Tdap / Td [...] Advance Directives For more information, please contact: [phone] Latest Code Status on File Code Status Date Activated Date Inactivated Comments Full Code 07/06/2021 5:04 PM 07/17/2021 3:16 AM This code status was ascertained in the following way: discussion with patient .
--- OUTSIDE RECORDS SUMMARY | 2025-05-23 10:44 | XMS_ITS | Patient Health Record ---
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 (I25.810) Active confirmed Problem Hyperlipidaemia (44536545) Hyperlipidemia, unspecified hyperlipidemia type (E78.5) Active confirmed Problem Type 2 diabetes mellitus with peripheral angiopathy (871964989) Type 2 diabetes mellitus with diabetic peripheral angiopathy without gangrene, without long-term current use of insulin (E11.51) Active confirmed Problem Mixed hyperlipidemia (144911336) Mixed dyslipidemia (E78.2) Active confirmed Plan Of Treatment Future Test Test Name Order Date Echocardiogram 04/07/2020 L CATH W/GRAPH 04/07/2020 Insurance Providers Payer Name Payer Address Payer Phone Subscriber Number Group Number Insured Name Patient Relationship to Insured Coverage Start Date Coverage End Date [employer] [address] [address] [place] [address] [id number] NICOLAS PERALTA Self - patient is the insured MEDICAID [place] [address] [place], [place] [id number] NICOLAS PERALTA Self - patient is the insured Medical (General) History Medical History History ICD Code TIA (transient ischemic attack) TIA (transient ischemic attack) G45.9 Surgical History Surgery Date(Month/Year) vaginal delivery 1985 Hospitalization History Reason Date(Month/Year) TIA 07/2019
--- OUTSIDE RECORDS SUMMARY | 2025-05-23 10:44 | XMS_ITS | Patient Health Record ---
Author Organization [facility], Address [address] [facility] [place] [id number] Support Name Relationship Address Phone Maryjo Lagunas Guarantor Unknown [phone] Reason For Referral No Information Medications Medication [...] W/U Status Risk Notes Problem Essential hypertension (29354054) Essential hypertension (I10) Active confirmed Problem Dyslipidemia (879639576) Dyslipidemia (E78.5) Active confirmed Problem Coronary arteriosclerosis (disorder) (06530812) CAD in [place] artery (I25.10) Active confirmed Problem Tachycardia (5269931) Tachycardia (R00.0) Active confirmed Problem Mitral valve disorder (02430865) Mitral valve disorder (I05.9) Active confirmed Plan Of Treatment No Information
--- OUTSIDE RECORDS SUMMARY | 2025-05-23 10:45 | XMS_ITS | Clinical Summary ---
Author Organization [address] Address [address] [place] [phone] Phone Care Team Providers Care Clamp Remover Name Role Phone Maria Lloyd MD Primary Care Provider [phone] Allergies Active Allergy Reactions Criticality Noted Date Comments Gabapentin Unknown High 11/11/2021 Confusion, forgetfulness Oxycodone Other 07/08/2021 hallucinations Medications ammonium lactate (LAC-HYDRIN) 12 % lotion Apply to soles of feet daily. At night wear socks to bed 4 Active aspirin 81 mg EC tablet Take 1 tablet (81 mg total) by mouth 1 (one) time each day. 4 Active losartan (COZAAR) 25 mg tablet Take 1 tablet (25 mg total) by mouth 1 (one) time each day. 4 Active ezetimibe (ZETIA) 10 mg tablet Take 1 tablet (10 mg total) by mouth 1 (one) time each day. 4 Active clopidogreL (PLAVIX) 75 mg tablet TAKE 1 TABLET BY MOUTH DAILY 30 tablet 11 5 Active blood-glucose sensor (FreeStyle Talat 2 Plus Sensor) device Use 1 sensor every 14 days 6 each 2 5 Active ibandronate (BONIVA) 150 mg tablet TAKE 1 TABLET BY MOUTH EVERY 30 DAYS 3 tablet 1 5 Active insulin lispro (HumaLOG KwikPen Insulin) 100 unit/mL injection pen Inject 24 Units into the skin 3 times daily. 45 mL 3 5 Active insulin glargine (Lantus Solostar U-100 Insulin) 100 unit/mL (3 mL) injection pen Inject 32 Units into the skin at bedtime, increase by 2 units every 3 days with a max dose of 36 units, if fasting sugars remain over 130 30 mL 1 5 Active atorvastatin (LIPITOR) 40 mg tablet Take 1 tablet (40 mg total) by mouth 1 (one) time each day. 90 tablet 1 5 Active fluticasone propionate (FLONASE) 50 mcg/actuation nasal spray Administer 2 sprays into each nostril 1 (one) time each day. Shake gently. Before first use, prime pump. After use, clean tip and replace cap. 16 g 1 5 Active cilostazoL (PLETAL) 50 mg tablet Take 1 tablet (50 mg total) by mouth 2 (two) times a day. Active levocetirizine (XYZAL) 5 mg tablet TAKE 1 TABLET BY MOUTH EVERY EVENING 90 tablet 1 5 Active cholecalcifero l (VITAMIN D-3) 50 mcg (2,000 unit) tablet Take 1 tablet (2,000 Units total) by mouth 1 (one) time each day. 90 tablet 1 5 Active cholecalcifero l (VITAMIN D-3) 50 mcg (2,000 unit) tablet Take 1 tablet (2,000 Units total) by mouth 1 (one) time each day. 05/13/20 25 Discontinu ed(Reorder ) Active Problems Problem Noted Date Diagnosed Date Age-related osteoporosis wit hout current pathological fracture 11/29/2024 Stenosis of carotid artery 06/06/2024 Vitamin D deficiency 09/07/2023 Diabetes mellitus ([facility] V24, [facility] V28) 06/2024 Peripheral vascular disease ([facility] V24) 2021 Vitamin B12 deficiency 09/14/2021 Coronary artery disease 07/31/2019 Overview (06/06/2024): History of CABG x2 June 2016; [facility] Mixed hyperlipidemia 07/30/2019 Primary hypertension 01/31/2011 Encounters Date Type Department Care Team Description 05/16/2025 Telephone [place] - [address] [phone] Maria Lloyd MD 04/29/2025 11:00 AM EDT Office Visit Orthopedic Surgery [facility] [address] [place] [phone] Christopher Arshad DPM Controlled type 2 diabetes with neuropathy ([facility], [facility] V28) (Primary Dx); PVD (peripheral vascular disease) ([facility] V24); Metatarsalgia of right foot 04/14/2025 3:30 PM EDT Office Visit [address] [phone] Flaco Lomas PA Spasm (Primary Dx); PAD (peripheral artery disease) ([facility] V24); Claudication ([facility] V24) 04/07/[address] [facility] 300 [facility] [address] [place] [address] Doc Lantigua MD 04/01/2025 11:00 AM EDT Office Visit [address] [phone] Flaco Lomas PA Primary hypertension (Primary Dx); Mixed hyperlipidemia; Vitamin D deficiency; Vitamin B12 deficiency; Non-seasonal allergic rhinitis, unspecified trigger; Type 2 diabetes mellitus with other specified complication, with long-term current use of insulin ([facility] V24, [facility] V28); Dry skin; Memory loss 03/28/2025 9:30 AM EDT Office Visit Vascular Surgery [facility] [address] [phone] Doc Lantigua MD Aorto-iliac disease ([facility] V24) (Primary Dx); PAD (peripheral artery disease) ([facility] V24); Carotid stenosis, asymptomatic, bilateral 03/26/2025 11:30 AM EDT Office Visit [address] [phone] Calvin, Janae, PA Type 2 diabetes mellitus with other specified complication, with long-term current use of insulin ([facility] V24, [facility] V28) (Primary Dx); Primary hypertension; Mixed hyperlipidemia 03/04/2025 10:34 AM EDT - 03/04/2025 11:59 PM EDT Hospital Encounter [facility] CT Scan [address] [place] [phone] Aorto-iliac disease ([facility] V24); PAD (peripheral artery disease) ([facility] V24) Discharge Disposition: Home or Self Care 02/21/2025 Telephone Endocrinology - [place] [address] [place] [phone] Janae Simpson PA from Last 3 Months Immunizations Name Administration Dates Next Due Pfizer SARS-CoV-2 COVID-19, mRNA, LNP-S, preservative free 02/08/2021,12/26/2020 Surgical History Surgery Date Site/Laterality Comments CARDIAC SURGERY PROCEDURE:CARDIAC SURGERY EYE SURGERY PROCEDURE:EYE SURGERY OTHER SURGICAL HISTORY 02/20/2024 PROCEDURE: WA SLCTV CATHJ 3RD+ ORD SLCTV ABDL PEL/LXTR BRNCH OTHER SURGICAL HISTORY 02/20/2024 PROCEDURE: X-RAY EXAM OF ARM/LEG ARTERY OTHER SURGICAL HISTORY 02/20/2024 PROCEDURE: WA REVASCULARIZATION ILIAC ARTERY ANGIOP 1ST VSL OTHER SURGICAL HISTORY 02/20/2024 PROCEDURE: WA REVSC OPN/PRQ ILIAC ART W/STNT PLMT & ANGIOPLSTY OTHER SURGICAL HISTORY 02/20/2024 Right PROCEDURE: WA REVASC INTRAVASC LITHOTRIPSY OTHER SURGICAL HISTORY 02/20/2024 Left PROCEDURE: [place] REVASC INTRA LITHOTRIP-STENT Medical History Medical History Date Comments Arthritis DX:Arthritis Coronary artery disease DX:Coron pallavi artery disease Diabetes mellitus ([facility] V 24, [facility] V28) DX:Diabetes mellitus (HCC) Hypertension DX:Hypertension Stroke ([facility] V24, [facility] V28) DX:Stroke (HCC) Provoked seizure ([facility] V2 4, [facility] V28) 09/14/2021 DX:Provoked seizure (HCC) Tendinitis DX:Tendinitis Ankle swelling DX:Ankle swellin g High cholesterol DX:High cholest emilie Myocardial infarction ([facility] V24, [facility] V28) DX:Myocardial infarction (HC C) HL (hearing loss) DX:HL (hearing loss) Allergic rhinitis DX:Allergic rh initis Essential (primary) hypertension DX:Essential (primary) hypertension CAD (coronary artery disease ) of artery bypass graft DX:CAD (coronary artery dise ase) of artery bypass graft Carotid artery stenosis DX:Carot id artery stenosis Age-related osteoporosis wit hout current pathological fracture 11/29/2024 Family History Medical History Relation Name Comments Diabetes Brother Heart disease Brother Hyperlipidemia Brother Hypertension Brother Cancer Mother Hypertension Mother Breast cancer Sister Heart disease Sister Relation Name Status Comments Brother Alive Mother Sister Social History Tobacco Use Types Packs/Day Years Used Date Smoking Tobacco: Former Cigarettes Q uit: 07/06/1998 Smokeless Tobacco: Never Tobacco Cessation:Counseling Given: Not Answered Alcohol Use Standard Drinks/Week Comments Not Currently [...] Record ed Within the last 3 months, ho w many times did you visit the [...] for your loved ones. For example, child and family therapist or elderly care for an older [...] Orientation Straight 01/30/2025 4: 16 PM EDT Obstetrics History Para Term AB IAB SAB Ectopic Multiple Livin g Live Births 2 2 2 2 Date Outcome GA Total Labor Labor/2nd/3rd Weight Sex Type Anes PTL Ellen A1 A5 Name Clin Term Term Last Filed Vital Signs Vital Sign Reading Time Taken Comments Blood Pressure 100/68 04/14/2025 3:35 PM EDT Pulse 88 04/14/2025 3:35 PM EDT Temperature 36.5 C (97.7 F) 04/14/2025 3:35 PM EDT Respiratory Rate 14 04/14/2025 3:35 PM EDT Oxygen Saturation 98% 09/27/2024 11:07 AM EST Inhaled Oxygen Concentration - - Weight 83.3 kg (183 lb 9.6 oz) 04/14/2025 3:35 P M EDT Height 167.6 cm (5' 6 ) 04/14/2025 3:35 PM EDT Body Mass Index 29.63 04/14/2025 3:35 PM EDT Plan of Treatment Upcoming Encounters Date Type Department Care Team (Late st Contact Info) Description 05/27/2025 11:30 AM EDT Nutrition Internal Medicine - [place] 175 [facility] 200 [place] [phone] Dorinda Cedeño, RD [address] [place] [phone] 06/03/2025 10:00 AM EDT Evaluation Outpatient Rehabilitation - [address] [phone] Christopher Benz, PT 07/29/2025 1:15 PM EST Office Visit Orthopedic Surgery [facility] 250 [address] [facility] 250 [place] [phone] Christopher Arshad, DPM [address] [phone] 08/08/2025 11:30 AM EST Office Visit Vascular Surgery - [place] 300 [facility] [address] [place] [phone] Doc Lantigua MD [address] [place] [phone] 08/20/2025 4:30 PM EST Office Visit Adult Medicine [place] - [address] [phone] Maria Lloyd MD [address] [place] [address] 08/26/2025 2:00 PM EST Office Visit Endocrinology - [address] [phone] Yue Lloyd PA [address] [place] [address] 11/27/2025 10:45 AM EDT Ancillary Procedure [facility] - [facility] [address] [phone] Health Maintenance Due Date Last Done Comments Diabetes: Annual Foot Exam 12/22/1957 Diabetes: Annual Retina Eye Exam 12/22/1957 Pneumococcal Vaccine: 50+ Years (1 of 2 - PCV) 12/22/1966 Zoster Vaccines (1 of 2) 12/22/1997 Hepatitis C Screening 07/26/2022 Medicare Annual Wellness Visit 07/26/2022 RSV Immunization Adult Patients (1 - 1-dose 75+ series) 12/22/2022 COVID-19 Vaccine (3 - 2024- season) 2025 02/08/2021, 12/26/2020 Influenza Vaccine (#1) 2025 2, 07/08/2011, 06/11/2010, Additional history exists Diabetes: Annual Urine Albumin-Creatinine Ratio (uACR) 09/27/2025 09/27/2024, 09/07/2023, 04/07/2022 Diabetes: Blood Sugar Control Test (HGBA1C) 10/15/2025 04/14/2025, 01/08/2025, 09/27/2024, Additional history exists Social Influencers of Health Screening 11/24/2025 11/24/2024 Diabetes: Annual GFR (Glomerular Filtration Rate) 02/25/2026 02/25/2025, 01/08/2025, 07/17/2024, Additional history exists Hypertension/CHF/CAD Annual BMP Blood Test 02/25/2026 02/25/2025, 01/08/2025, 07/17/2024, Additional history exists Falls Risk Assessment 04/14/2026 04/14/2025 DTaP,Tdap,and Td Vaccines (2 - Td or Tdap) 05/29/2027 05/29/2017 Cholesterol Screening (Lipid Panel) 04/14/2030 04/14/2025, 09/07/2023, 12/15/2022, Additional history exists Osteoporosis Screening (Bone Density Screening) 08/13/2034 08/13/2024, 03/22/2011 Breast Cancer Screening Discontinued 08/13/20 24, 08/01/2022, 08/01/2022, Additional history exists Depression Screening Completed 04/10/2025 HIB Vaccines Aged Out No longer eligi ble based on patient's age to complete this topic HPV Vaccines Aged Out No longer eligi ble based on patient's age to complete this topic Hepatitis A Vaccines Aged Out No long er eligible based on patient's age to complete this topic Hepatitis B Vaccines Aged Out No long er eligible based on patient's age to complete this topic IPV Vaccines Aged Out No longer eligi ble based on patient's age to complete this topic MMR Vaccines Aged Out No longer eligi ble based on patient's age to complete this topic Meningococcal ACWY Vaccine Aged Out N o longer eligible based on patient's age to complete this topic Meningococcal B Vaccine Aged Out No l onger eligible based on patient's age to complete this topic RSV Immunization Patients Under 20 months Aged Out No longer eligible based on patient's age to complete this topic Varicella Vaccines Aged Out No longer eligible based on patient's age to complete this topic Procedures Procedure Name Priority Date/Time Associated Diagnosis Comments CBC WITH AUTO DIFFERENTIAL Routine 04/14/2025 4:43 PM EDT Type 2 diabetes mellitus with other specified complication, with long-term current use of insulin ([facility] V24, [facility] V28) HEMOGLOBIN A1C Routine 04/14/2025 4:43 PM EDT Type 2 diabetes mellitus with other specified complication, with long-term current use of insulin ([facility] V24, [facility] V28) LIPID PANEL WITH REFLEX TO DIRECT LDL Routine 04/14/2025 4:43 PM EDT Mixed hyperlipidemia VITAMIN D 25 HYDROXY Routine 04/14/2025 4:43 PM EDT Vitamin D deficiency VITAMIN B12 Routine 04/14/2025 4:43 PM EDT Vitamin B12 deficiency CBC AND DIFFERENTIAL Routine 04/14/2025 4:43 PM EDT Type 2 diabetes mellitus with other specified complication, with long-term current use of insulin ([facility] V24, [facility] V28) CT ANGIO ABDOMINAL AORTA W RUNOFF Routine 03/04/2025 11:06 AM EDT Aorto-iliac disease ([facility] V24) PAD (peripheral artery disease) ([facility] V24) BUN Routine 02/25/2025 3:29 PM EDT Aorto-iliac disease ([facility] V24) CREATININE, SERUM Routine 02/25/2025 3:2 9 PM EDT Aorto-iliac disease ([facility] V24) MICROALBUMIN CREATININE URINE RATIO Routine 09/27/2024 12:09 PM EST Type 2 diabetes mellitus with other specified complication, with long-term current use of insulin ([facility] V24, [facility] V28) MG MAMMO DIGITAL SCREENING W KERMIT BILAT Routine 08/13/2024 11:35 AM EST Encounter for screening mammogram for breast cancer BD BONE DENSITY DXA AXIAL SKELETON Routine 08/13/2024 11:03 AM EST Encounter for screening for osteoporosis from Last 3 Months or Most Recently Relevant to Health Maintenance Results * (ABNORMAL) Lipid panel with reflex to direct LDL (04/14/2025 4:43 PM EDT) Cholesterol 138 0 - 200 mg/dL LAB CHEMISTRY METHOD 04/14/2025 7:22 PM [facility] Triglycerides 185(H) 0 - 150 mg/dL LAB CHEMISTRY METHOD 04/14/2025 7:22 PM T [facility] HDL 59 >=40 mg/dL LAB CHEMISTRY METHOD 04/14/2025 7:22 PM [facility] LDL Calculated 42 0 - 100 mg/dL LAB CHEMISTRY METHOD 04/14/2025 7:22 PM [facility] Comment:Estimated LDL Calcul ated using equation: Total cholesterol - HDL cholesterol - (Triglycerides/5) VLDL Cholesterol Trip 37 mg/dL LAB CHEMISTRY METHOD 04/14/2025 7:22 PM [facility] Non HDL Chol. (LDL+VLDL) 79 <145 mg/dL LAB CHEMISTRY METHOD 04/14/2025 7:22 PM EDT [facility] Chol/HDL Ratio 2.3 0.0 - 4.4 LAB CHEMISTRY METHOD 04/14/2025 7:22 PM EDT [facility] Blood Venous blood specimen / Unknown Venipuncture / Unknown 04/14/2025 4:43 PM EDT 04/14/2025 4:43 PM EDT us Flaco JARAMILLO LAB BLOOD ORDERABLES Final Res ult [facility] [address] [place] [address], * (ABNORMAL) CBC auto differential (04/14/2025 4:43 PM EDT) WBC 8.1 4.8 - 10.8 K/mcL LAB HEMETOLOGY METHOD 04/14/2025 6:44 PM EDT [facility] RBC 4.60 3.80 - 4.80 M/mcL LAB HEMETOLOGY METHOD 04/14/2025 6:44 PM EDT [facility] Hemoglobin 12.8 11.5 - 16.0 g/dL LAB HEMETOLOGY METHOD 04/14/2025 6:44 PM EDT [facility] Hematocrit 40.9 35.0 - 47.0 % LAB HEMETOLOGY METHOD 04/14/2025 6:44 PM EDT [facility] MCV 88.9 79.0 - 98.0 FL LAB HEMETOLOGY METHOD 04/14/2025 6:44 PM EDT [facility] MCH 27.8 27.0 - 32.0 pcg LAB HEMETOLOGY METHOD 04/14/2025 6:44 PM EDT [facility] MCHC 31.3(L) 32.0 - 37.0 g/dL LAB HEMETOLOGY METHOD 04/14/2025 6:44 PM EDT [facility] RDW 15.2(H) 11.0 - 15.0 % LAB HEMETOLOGY METHOD 04/14/2025 6:44 PM EDT [facility] Platelets 188 130 - 400 K/mcL LAB HEMETOLOGY METHOD 04/14/2025 6:44 PM EDT [facility] MPV 12.4(H) 7.0 - 11.0 FL LAB HEMETOLOGY METHOD 04/14/2025 6:44 PM EDT [facility] NRBC 0.0 <1.0 % LAB HEMETOLOGY METHOD 04/14/2025 6:44 PM EDT [facility] NRBC Absolute 0.00 <0.10 K/mcL LAB [facility]EMETOLOGY [facility]/14[facility]25 [facility] Neutrophils Relative 61.7 % LAB HEMETOLOGY METHOD 04/14/2025 6:44 PM EDT [facility] Lymphocytes Relative 26.9 % LAB HEMETOLOGY METHOD 04/14/2025 6:44 PM EDT [facility] Monocytes Relative 8.4 % LAB HEMETOLOGY METHOD 04/14/2025 6:44 PM [facility] Eosinophils Relative 2.2 % LAB HEMETOLOGY METHOD 04/14/2025 6:44 PM EDT [facility] Basophils Relative 0.6 % LAB HEMETOLOGY METHOD 04/14/2025 6:44 PM EDT [facility] Immature Granulocytes Relative 0.2 % LAB HEMETOLOGY METHOD 04/14/2025 6:44 PM EDT [facility] Neutrophils Absolute 4.97 1.50 - 7.00 K/mcL LAB HEMETOLOGY METHOD 04/14/2025 6:44 PM EDT [facility] Lymphocytes Absolute 2.17 1.00 - 5.00 K/mcL LAB HEMETOLOGY METHOD 04/14/2025 6:44 PM EDT [facility] Monocytes Absolute 0.68 0.20 - 1.00 K/mcL LAB HEMETOLOGY METHOD 04/14/2025 6:44 PM EDT [facility] Eosinophils Absolute 0.18 0.00 - 0.50 K/mcL LAB HEMETOLOGY METHOD 04/14/2025 6:44 PM EDT [facility] Basophils Absolute 0.05 0.00 - 0.20 K/mcL LAB HEMETOLOGY METHOD 04/14/2025 6:44 PM EDT [facility] Immature Granulocytes Absolute 0.02 0.00 - 0.03 K/mcL LAB HEMETOLOGY METHOD 04/14/2025 6:44 PM EDT [facility] Blood Venous blood specimen / Unknown Venipuncture / Unknown 04/14/2025 4:43 PM EDT 04/14/2025 4:43 PM EDT Flaco JARAMILLO LAB BLOOD ORDERABLES Final Res ult [facility] [address] [place] [address], * (ABNORMAL) Vitamin D 25 hydroxy (04/14/2025 4:43 PM EDT) Vit D, 25-Hydroxy 27.8(L) 30.0 - 80.0 ng/mL LAB CHEMISTRY METHOD 04/14/2025 7:35 PM EDT [facility] Blood Venous blood specimen / Unknown Venipuncture / Unknown 04/14/2025 4:43 PM EDT 04/14/2025 4:43 PM EDT Flaco JARAMILLO LAB BLOOD ORDERABLES Final Res ult [facility] [address] [place] [address], [place] [phone] * (ABNORMAL) Hemoglobin A1c (04/14/2025 4:43 PM EDT) [facility] Hemoglobin A1C 7.8(H) <6.5 % LAB CHEMISTRY METHOD 04/14/2025 8:18 PM EDT [facility] Mean Bld Glu Estim. 177 mg/dL LAB CHEMISTRY METHOD 04/14/2025 8:18 PM EDT [facility] Blood Venous blood specimen / Unknown Venipuncture / Unknown 04/14/2025 4:43 PM EDT 04/14/2025 4:43 PM EDT Janae JARAMILLO LAB BLOOD ORDERABLES Final Result Performing Organization Address [facility]/ZIP Co de Phone Number [facility] [address] [place] [address], [place] [phone] * Vitamin B12 (04/14/2025 4:43 PM EDT) [facility] Vitamin B-12 739 250 - 900 pcg/mL LAB CHEMISTRY METHOD 04/14/2025 7:22 PM EDT [facility] Blood Venous blood specimen / Unknown Venipuncture / Unknown 04/14/2025 4:43 PM EDT 04/14/2025 4:43 PM EDT Flaco JARAMILLO LAB BLOOD ORDERABLES Final Res ult [facility] [address] [place] [address], [place] [phone] * CT Angio Abdominal Aorta w Runoff (03/04/2025 11:06 AM EDT) Anatomical Region Laterality Modality Body Computed Tomogra phy 03/05/2025 10:5 5 AM EDT Impressions 03/05/2025 11:21 AM EDT 1. Extensive multifocal atherosclerotic disease as detailed above. Patent left common iliac stent. 2. A low-attenuation lesion in the inferior right hepatic lobe is suspected to represent a hemangioma but is not definitively characterized on this study. It could be definitively characterized with multiphasic contrast enhanced liver MRI. -------- FINAL REPORT -------- Dictated By: Bharathi Yee Dictated Date: 03/05/2025 10:55 ET Assigned Physician: Bharathi Yee Reviewed and Electronically Signed By: Bharathi Yee Signed Date: 03/05/2025 11:21 ET Workstation ID: [id number] Transcribed By: Self Edit Transcribed Date: 03/05/2025 10:55 ET Narrative 03/05/2025 11:21 AM EDT PROCEDURE: CT angiogram of the abdomen and pelvis with bilateral lower extremity runoff. TECHNIQUE: CT angiogram with bilateral lower extremity runoff. Multiplanar reformats were created. IV contrast dose: 120 mL ISOVUE 370. HISTORY: Claudication or leg ischemia COMPARISON: 05/22/2024. Dose length product: 1949 mGy-cm. FINDINGS: VASCULATURE: Extensive atherosclerotic plaque in the abdominal aorta with a mild mid aortic stenosis. Multifocal plaque throughout the celiac axis with mild multifocal luminal narrowing. Multifocal plaque in the SMA with a moderate origin stenosis. The RAHEEM is patent, but there is at least a moderate origin stenosis. Calcified plaque results in mild narrowing of the proximal right main renal artery. Calcified plaque results in moderate stenosis of the proximal left main renal artery. Right lower extremity: Calcified plaque with mild proximal luminal stenosis of the common iliac artery. Bulky calcified plaque in the internal iliac artery with multifocal luminal stenoses, most prominent at the origin. Calcified plaque in the external iliac artery without significant stenosis. Moderate stenosis of the common femoral artery. Mild multifocal stenoses of the profunda branch. Bulky plaque throughout the SFA with multifocal high-grade stenoses in multiple small collaterals multifocal calcified plaque in the popliteal artery with several moderate stenoses and a severe distal stenosis. There is three-vessel runoff into the foot, but there are several severe stenoses of the anterior tibial artery, and a mild origin stenosis of the tibialis posterior, which is a primary inflow to the foot. Left lower extremity: Patent stent in the common iliac artery. Multifocal luminal stenoses of the internal iliac artery, most prominent at the origin. Scattered calcified plaque in the external iliac artery without a significant stenosis. Multifocal calcified plaque in the profunda branch with a moderate origin stenosis. Severe multifocal luminal stenoses throughout the SFA, most prominent in the distal thigh where there is a short segment of apparent occlusion and several adjacent collaterals. Moderate-severe multifocal luminal irregularity and narrowing throughout on the popliteal artery. Multifocal calcified plaque in the trifurcation vessels, most prominently affecting the LEADER WRITER, which appears largely occluded and reconstitutes via collaterals in the distal leg. LUNG BASES: Small amount of osteophyte associated scarring in the medial right lower lobe. Cardiac: Moderate cardiomegaly. Aortic and mitral annular calcifications. Moderate coronary artery calcification. LIVER: There are is a heterogeneous ill-defined low-attenuation lesion with peripheral hyperattenuation suggestive of enhancement in the inferior right lobe. This measures approximately 17 mm in diameter. It is less apparent but present on the comparison CT. Given features on today's arterial phase images and on the previous portal venous phase images, suspect that this represents a hemangioma. However, this is not definitively characterized on this study. BILIARY: Normal gallbladder and biliary tree. PANCREAS: Normal. SPLEEN: Normal. ADRENAL GLANDS: Normal. KIDNEYS: Normal. Normal appearance of the ureters. RETROPERITONEUM: No mass or adenopathy. BOWEL/MESENTERY: No obstruction or adenopathy. No mass or ascites. Mild colonic fecal loading. ABDOMINAL WALL: Small fat-containing paraumbilical hernia. PELVIC NODES: No adenopathy. PELVIC ORGANS: Normal. BONES: Sternotomy wires. Prominent degenerative changes of the spine. Mild rotatory lumbar dextroscoliosis. Moderate degenerative changes of the hips, SI joints, and pubic symphysis. Moderate degenerative changes of the knees. OTHER: No other significant findings. Procedure Note Bharathi Yee MD - 03/05/2025 PROCEDURE: CT angiogram of the abdomen and pelvis with bilateral lowerextremity runoff. TECHNIQUE: CT angiogram with bilateral lower extremity runoff.Multiplanar reformats were created. IV contrast dose: 120 mL ISOVUE 370. HISTORY: Claudication or leg ischemia COMPARISON: 05/22/2024. Dose length product: 1949 mGy-cm. FINDINGS: VASCULATURE: Extensive atherosclerotic plaque in the abdominal aorta witha mild mid aortic stenosis. Multifocal plaque throughout the celiac axis with mild multifocal luminalnarrowing. Multifocal plaque in the SMA with a moderate origin stenosis. The RAHEEM is patent, but there is at least a moderate origin stenosis. Calcified plaque results in mild narrowing of the proximal right mainrenal artery. Calcified plaque results in moderate stenosis of theproximal left main renal artery. Right lower extremity: Calcified plaque with mild proximal luminalstenosis of the common iliac artery. Bulky calcified plaque in theinternal iliac artery with multifocal luminal stenoses, most prominent atthe origin. Calcified plaque in the external iliac artery withoutsignificant stenosis. Moderate stenosis of the common femoral artery.Mild multifocal stenoses of the profunda branch. Bulky plaque throughoutthe SFA with multifocal high-grade stenoses in multiple small collateralsmultifocal calcified plaque in the popliteal artery with several moderatestenoses and a severe distal stenosis. There is three-vessel runoff intothe foot, but there are several severe stenoses of the anterior tibialartery, and a mild origin stenosis of the tibialis posterior, which is aprimary inflow to the foot. Left lower extremity: Patent stent in the common iliac artery. Multifocalluminal stenoses of the internal iliac artery, most prominent at theorigin. Scattered calcified plaque in the external iliac artery without asignificant stenosis. Multifocal calcified plaque in the profunda branchwith a moderate origin stenosis. Severe multifocal luminal stenosesthroughout the SFA, most prominent in the distal thigh where there is ashort segment of apparent occlusion and several adjacent collaterals.Moderate-severe multifocal luminal irregularity and narrowing throughouton the popliteal artery. Multifocal calcified plaque in the trifurcationvessels, most prominently affecting the LEADER WRITER, which appears largelyoccluded and reconstitutes via collaterals in the distal leg. LUNG BASES: Small amount of osteophyte associated scarring in the medialright lower lobe. Cardiac: Moderate cardiomegaly. Aortic and mitral annular calcifications.Moderate coronary artery calcification. LIVER: There are is a heterogeneous ill-defined low-attenuation lesionwith peripheral hyperattenuation suggestive of enhancement in the inferiorright lobe. This measures approximately 17 mm in diameter. It is lessapparent but present on the comparison CT. Given features on today'sarterial phase images and on the previous portal venous phase images,suspect that this represents a hemangioma. However, this is notdefinitively characterized on this study. BILIARY: Normal gallbladder and biliary tree. PANCREAS: Normal. SPLEEN: Normal. ADRENAL GLANDS: Normal. KIDNEYS: Normal. Normal appearance of the ureters. RETROPERITONEUM: No mass or adenopathy. BOWEL/MESENTERY: No obstruction or adenopathy. No mass or ascites. Mildcolonic fecal loading. ABDOMINAL WALL: Small fat-containing paraumbilical hernia. PELVIC NODES: No adenopathy. PELVIC ORGANS: Normal. BONES: Sternotomy wires. Prominent degenerative changes of the spine.Mild rotatory lumbar dextroscoliosis. Moderate degenerative changes ofthe hips, SI joints, and pubic symphysis. Moderate degenerative changesof the knees. OTHER: No other significant findings. IMPRESSION: 1. Extensive multifocal atherosclerotic disease as detailed above.Patent left common iliac stent. 2. A low-attenuation lesion in the inferior right hepatic lobe issuspected to represent a hemangioma but is not definitively characterizedon this study. It could be definitively characterized with multiphasiccontrast enhanced liver MRI. -------- FINAL REPORT -------- Dictated By: Bharathi Yee Dictated Date: 03/05/2025 10:55 ET Assigned Physician: Bharathi Yee Reviewed and Electronically Signed By: Bharathi Yee Signed Date: 03/05/2025 11:21 ET Workstation ID: [id number] Transcribed By: Self Edit Transcribed Date: 03/05/2025 10:55 ET Doc Lantigua MD [facility] PROCEDURES Final Result * (ABNORMAL) Creatinine (02/25/2025 3:29 PM EDT) Creatinine 1.17(H) 0.50 - 1.10 mg/dL LAB CHEMISTRY METHOD 02/25/2025 6:34 PM EDT [facility] eGFR 48(L) >=60 mL/min/1. 73m2 LAB CHEMISTRY METHOD 02/25/2025 6:34 PM EDT [facility] Comment:Calculation based on the Chronic Kidney Disease Epidemiology Collaboration (CKD-EPI) equation refit without adjustment for race. Blood Venous blood specimen / Unknown Venipuncture / Unknown 02/25/2025 3:29 PM EDT 02/25/2025 3:29 PM EDT Doc Lantigua MD LAB BLOOD ORDERABLES Final Resu lt [facility] [address] [place] [address], [place] [phone] * BUN (02/25/2025 3:29 PM EDT) BUN 21 5 - 25 mg/dL LAB CHEMISTRY METHOD 02/25/2025 6:34 PM EDT [facility] Blood Venous blood specimen / Unknown Venipuncture / Unknown 02/25/2025 3:29 PM EDT 02/25/2025 3:29 PM EDT Doc Lantigua MD LAB BLOOD ORDERABLES Final Resu lt [facility] [address] [place] [address], [place] [phone] * (ABNORMAL) Microalbumin creatinine urine ratio (09/27/2024 12:09 PM EST) Creatinine, Urine 168.0 mg/dL LAB CHEMISTRY METHOD 09/27/2024 3:24 PM EST [facility] Microalb, Ur 61.5(H) 0.0 - 29.0 mg/L LAB CHEMISTRY METHOD 09/27/2024 3:24 PM EST [facility] Microalb/Crea t Ratio 37(H) <30 mg/g creat LAB CHEMISTRY METHOD 09/27/2024 3:24 PM EST [facility] Urine Urine specimen obtained by clean catch procedure / Unknown Non-blood Collection / Unknown 09/27/2024 12:09 PM EST 09/27/2024 12:09 PM EST [facility] LAB URINE ORDERABLES Final Resul t [facility] [address] [place] [address], [place] [phone] * MG Mammo Digital Screening w Kermit bilat (08/13/2024 11:35 AM EST) Anatomical Region Laterality Modality Breast Bilateral Mammography 08/13/2024 7:05 PM EST Impressions 08/13/2024 7:06 PM EST No mammographic evidence of malignancy. BREAST DENSITY: B - There are scattered areas of fibroglandular density. BI-RADS CATEGORY: 1 - NEGATIVE RECOMMENDATION: Screening bilateral mammogram is recommended in 1 year. MAMMO LOCATION: [facility], [address] [place] [address], [id number], . -------- FINAL REPORT -------- Dictated By: Laury Junior Dictated Date: 08/13/2024 19:05 ET Assigned Physician: Laury Junior Reviewed and Electronically Signed By: Laury Junior Signed Date: 08/13/2024 19:06 ET Workstation ID: [id number] Transcribed By: Self Edit Transcribed Date: 08/13/2024 19:05 ET Narrative 08/13/2024 7:06 PM EST EXAM: Screening Mammogram CLINICAL: 78 years old, Female, routine annual exam. COMPARISON: 08/01/2022 TECHNIQUE: Bilateral MLO and CC views were obtained digitally with 3-D mammogram (digital breast tomosynthesis). Computer-aided detection was utilized in evaluation of this exam (CAD). FINDINGS: No new suspicious mass, architectural distortion, or suspicious calcifications. Procedure Note Laury Junior MD - 08/13/2024 EXAM: Screening Mammogram CLINICAL: 78 years old, Female, routine annual exam. COMPARISON: 08/01/2022 TECHNIQUE: Bilateral MLO and CC views were obtained digitally with 3-Dmammogram (digital breast tomosynthesis). Computer-aided detection wasutilized in evaluation of this exam (CAD). FINDINGS: No new suspicious mass, architectural distortion, or suspiciouscalcifications. IMPRESSION: No mammographic evidence of malignancy. BREAST DENSITY: B - There are scattered areas of fibroglandular density. BI-RADS CATEGORY: 1 - NEGATIVE RECOMMENDATION: Screening bilateral mammogram is recommended in 1 year. MAMMO LOCATION: [facility], [address] [place] [address], [id number], . -------- FINAL REPORT -------- Dictated By: Laury Junior Dictated Date: 08/13/2024 19:05 ET Assigned Physician: Laury Junior Reviewed and Electronically Signed By: Laury Junior Signed Date: 08/13/2024 19:06 ET Workstation ID: [id number] Transcribed By: Self Edit Transcribed Date: 08/13/2024 19:05 ET us Maria Lloyd MD IMG BI PROCEDURES Final Result * BD Bone Density DXA Axial Skeleton (08/13/2024 11:03 AM EST) Anatomical Region Laterality Modality Wrist, Hip, L-spine Bone Densito metry 08/13/2024 11:1 1 AM EST Impressions 08/13/2024 11:12 AM EST Normal bone mineral density by WHO criteria. The [facility] Department of Internal Medicine recommends using National Osteoporosis Foundation (NOF) guidelines in treatment decisions related to osteoporosis. NOF guidelines suggest considering treatment for postmenopausal women and men aged 50 or older presenting with the following: History of hip or vertebral fracture. T-score = -2.5 (DXA) at the femoral neck, total hip, or spine, after appropriate evaluation to exclude secondary causes. Low bone mass (T-score between -1.0 and -2.5 at the femoral neck or spine) AND a 10-year probability of a hip fracture = 3% OR a 10-year probability of a major osteoporosis-related fracture = 20% based on the [place]-adapted WHO algorithm Please note that all treatment decisions require clinical judgment and consideration of individual patient factors, including patient preferences, co-morbidities, previous drug use, risk factors not captured in the FRAX model (e.g., frailty, falls, vitamin D deficiency, increased bone turnover, interval significant decline in bone density) and possible under- or over-estimation of fracture risk by FRAX. Optional alternative screening schedule based on esthela Goncalves., [facility] September 15, 2011 for patients with osteopenia (based on hip BMD T-score) is as follows: * advanced osteopenia (T scores -2.00 to -2.49), BMD testing every year * moderate osteopenia (T scores -1.50 to -1.99), BMD testing every 5 years mild osteopenia or normal BMD (T scores -1.50 and higher), BMD testing every 15 years -------- FINAL REPORT -------- Dictated By: Laury Junior Dictated Date: 08/13/2024 11:11 ET Assigned Physician: Laury Junior Reviewed and Electronically Signed By: Laury Junior Signed Date: 08/13/2024 11:12 ET Workstation ID: [id number] Transcribed By: Self Edit Transcribed Date: 08/13/2024 11:11 ET Narrative 08/13/2024 11:12 AM EST BONE DENSITY SCAN (DEXA) FINDINGS: Lumbar Spine T-score is 1.5. (SD relative to 20-29 y/o adult) Z-score is 4.0. (SD relative to age matched peers) This is considered normal by WHO criteria. Left Hip T-score is -0.7. Z-score is 1.5. This is considered normal by WHO criteria. Comparison: None Lateral survey view of the thoracolumbar spine shows no significant compression deformities. Procedure Note Laury Junior MD - 08/13/2024 BONE DENSITY SCAN (DEXA) FINDINGS: Lumbar Spine T-score is 1.5. (SD relative to 20-29 y/o adult) Z-score is 4.0. (SD relative to age matched peers) This is considered normal by WHO criteria. Left Hip T-score is -0.7. Z-score is 1.5. This is considered normal by WHO criteria. Comparison: None Lateral survey view of the thoracolumbar spine shows no significantcompression deformities. IMPRESSION: Normal bone mineral density by WHO criteria. The [facility] Department of Internal Medicine recommendsusing National Osteoporosis Foundation (NOF) guidelines in treatmentdecisions related to osteoporosis. NOF guidelines suggest consideringtreatment for postmenopausal women and men aged 50 or older presentingwith the following: History of hip or vertebral fracture. T-score = -2.5 (DXA) at the femoral neck, total hip, or spine, afterappropriate evaluation to exclude secondary causes. Low bone mass (T-score between -1.0 and -2.5 at the femoral neck or spine)AND a 10-year probability of a hip fracture = 3% OR a 10-year probabilityof a major osteoporosis-related fracture = 20% based on the [place]-adapted WHOalgorithm Please note that all treatment decisions require clinical judgment andconsideration of individual patient factors, including patientpreferences, co-morbidities, previous drug use, risk factors not capturedin the FRAX model (e.g., frailty, falls, vitamin D deficiency, increasedbone turnover, interval significant decline in bone density) and possibleunder- or over-estimation of fracture risk by FRAX. Optional alternative screening schedule based on esthela Goncalves., [facility] for patients with osteopenia (based on hip BMD T-score)is as follows: * advanced osteopenia (T scores -2.00 to -2.49), BMD testing every year * moderate osteopenia (T scores -1.50 to -1.99), BMD testing every 5years mild osteopenia or normal BMD (T scores -1.50 and higher), BMD testingevery 15 years -------- FINAL REPORT -------- Dictated By: Laury Junior Dictated Date: 08/13/2024 11:11 ET Assigned Physician: Laury Junior Reviewed and Electronically Signed By: Laury Junior Signed Date: 08/13/2024 11:12 ET Workstation ID: [id number] Transcribed By: Self Edit Transcribed Date: 08/13/2024 11:11 ET Maria Lloyd MD IM DXA PROCEDURES Final Result from Last 3 Months or Most Recently Relevant to Health Maintenance Insurance [employer] MEDICARE [place]ICAID - [place] Care Teams Clamp Remover Relationship Specialty Start Date End Date Maria Lloyd MD [address] [place] [id number] PCP - General 07/19/23
== END 2025-05-23 10:12 | disposition home or self-care (01) ==
LOC: HO.HOS 09:43
PROVIDERS: PCP Internal Medicine
DX: G56.03 Carpal tunnel syndrome, bilateral upper limbs (principal)
CPT/HCPCS: 99024

== ENCOUNTER → 2025-05-23 09:42 | Outpatient (BNVA) | payer OTHER, SELFPAY | PROVIDERS: PCP Internal Medicine | DX: Z48.02 Encounter for removal of sutures (principal); G56.03 Carpal tunnel syndrome, bilateral upper limbs | CPT/HCPCS: 99212 ==

== ENCOUNTER → 2025-05-27 13:47 | Outpatient (BNVA) | payer OTHER, SELFPAY | PROVIDERS: PCP Internal Medicine; Visit Provider Psychiatry & Neurology Neurology | DX: G56.03 Carpal tunnel syndrome, bilateral upper limbs (principal) | CPT/HCPCS: 99212 ==

== ENCOUNTER → 2025-05-27 13:47 | Outpatient (AMB) | payer OTHER, SELFPAY ==
--- OUTSIDE RECORDS SUMMARY | 2025-05-27 11:30 | XMS_ITS | Encounter Summary ---
Author Organization [facility] Address [address] [place] [address] Care Team Providers Care Contracting Manager Name Role Phone Maria Lloyd MD Primary Care Provider [phone] Encounter Details Date Type Department Care Team ([facility] st Contact Info) Description 05/27/2025 11:30 AM EDT Nutrition Internal Medicine - [place] [address] [facility] [address] [place] [phone] Dorinda Cedeño, RD [address] [place] [phone] Type 2 diabetes mellitus with other specified complication, with long-term current use of insulin (CMS/HCC V24, CMS/HCC V28) (Primary Dx) Social History Tobacco Use Types Packs/Day Years [...] ed Within the last 3 months, shira flores many times did you visit the emergency [...] for your loved ones. For example, child life therapist or elderly care for an older [...] Date Recorded What is your living situation? Unrecognized valu e 11/24/2024 Comments No Sex and Gender Information Value Date Recorded Sex Assigned at Female 01/30/2025 4:16 PM EDT Legal Sex Female 12:34 PM EST Gender Identity Female 01/30/2025 4:16 PM EDT Sexual Orientation Straight 01/30/2025 4: 16 PM EDT documented as of this encounter Last Filed Vital Signs Vital Sign Reading Time Taken Comments Blood Pressure - - Pulse - - Temperature - - Respiratory Rate - - Oxygen Saturation - - Inhaled Oxygen Concentration - - Weight 81.6 kg (180 lb) 05/27/2025 1:52 PM EDT Height 167.6 cm (5' 6 ) 05/27/2025 1:52 PM EDT Body Mass Index 29.05 05/27/2025 1:52 PM EDT documented in this encounter Progress Notes * Dorinda Cedeño RD - 05/27/2025 11:30 AM EDT Contact info: Dorinda Cedeño, MS, RDN, LDN Registered Dietitian - Adult Medicine [address] [place] [address] [email or web address] W: [phone] Patient-created Goals: Exercise: continue with walking goals Shift to an earlier bedtime to wake up earlier Include more flat water daily Continue to find purpose with hobbies, anglican, community, etc. Continue limiting chips, snacks, etc. Prioritizing sleep: 7-8 hours * Dorinda Cedeño RD - 05/27/2025 11:30 AM EDT NUTRITION FOLLOW-UP NOTE: Patient Name: Maryjo Lagunas Date of : 1945 Date of Service: 05/27/2025 CHIEF COMPLAINT: DM2 HISTORY: Maryjo Lagunas is a 79 y.o. female who presents for nutrition visit for diabetes. This is their third visit. Pt also presents with: Problem List[1]. Today's wt: Last wt: Wt Readings from Last 1 Encounters: 04/14/25 83.3 kg (183 lb 9.6 oz) There is no height or weight on file to calculate BMI. (Overweight per WHO) Wt at initial: 182lb Wt change since initial: -2lb Challenges: erratic sleep schedule and dietary pattern Changes since last visit: moderating sweets and treats EATING HABITS/DIET RECALL: wake-up: 10am 3-4pm Lunch: eggs with toast (white) 6-7pm Dinner: protein and vegetables Bedtime snack 1-2 oz chips 2pm bedtime or later Beverages: water, seltzer, coffee 1-3x/day (whole milk) Dines out: infrequently Exercise: leg pain limits walking Sleep: unpredictable dietary pattern Stress: depression per pt report PAST MEDICAL HISTORY: Medical History[2] ACTIVE PROBLEM LIST: Problem List[3] PAST SURGICAL HISTORY: Surgical History[4] PAST FAMILY HISTORY: Family History[5] ACTIVE MEDICATIONS: Medications Ordered Prior to Encounter[6] ALLERGIES: Current Allergies[7] Nutrition assessment: Pt is 79 y.o. female who is trying to be more routine with sleep and eating routines. Vegetable intake improving, but often higher GI varieties. Treats are moderated. Hydration is concerning with only seltzer and coffee as beverages. Exercise is improving. Pt is being more mindful about her dietary choices. Nutrition diagnosis: Altered nutrition-related lab values related to endocrine function as evidenced by HbA1c of 7.8. Stage of change/Barriers to understanding: Patient is motivated to make changes to diet and lifestyle Patient-created Goals: Exercise: continue with walking goals Shift to an earlier bedtime to wake up earlier Include more flat water daily Continue to find purpose with hobbies, anglican, community, etc. Continue limiting chips, snacks, etc. Prioritizing sleep: 7-8 hours Literature Provided: Goal Sheets and RD Contact Information Interventions: Discussed importance of eating at least 3 meals per day and the impact on metabolism, Discussed the need to have protein with each meal and snack, Discussed the plate method and balanced meals, Discussed carbohydrate and impact on blood sugar levels, and Discussed the importance ofdrinking enough water Monitoring/Evaluation: Monitor weight, Monitor progress towards nutrition goals, and Monitor compliance with program overall RD to see patient for follow-up nutrition visit in 4 months Visit Time: The total time of this visit was 30 mins minutes of which we spent 30 mins minutes (>100% of thetime spent) in direct [id number] consultation for counseling, reviewing medical record and/or coordinating the plan as described above. Number of MEU accrued after this appointment ( year total): 4 MEU (60 minutes) includes 2 MEU used today. Dorinda Cedeño, MS, RDN, LDN NUTRITION SERVICES [1] Patient Active Problem List Diagnosis Vitamin D deficiency Vitamin B12 deficiency Peripheral vascular disease ([facility] V24) Coronary artery disease Diabetes mellitus ([facility] V24, [facility] V28) Mixed hyperlipidemia Primary hypertension Stenosis of carotid artery Age-related osteoporosis without current pathological fracture [2] Past Medical History: Diagnosis Date Age-related osteoporosis without current pathological fracture 11/29/2024 Allergic rhinitis DX:Allergic rhinitis Ankle swelling DX:Ankle swelling Arthritis DX:Arthritis CAD (coronary artery disease) of artery bypass graft DX:CAD (coronary artery disease) of artery bypass graft Carotid artery stenosis DX:Carotid artery stenosis Coronary artery disease DX:Coronary artery disease Diabetes mellitus ([facility] V24, [facility] V28) DX:Diabetes mellitus (HCC) Essential (primary) hypertension DX:Essential (primary) hypertension High cholesterol DX:High cholesterol HL (hearing loss) DX:HL (hearing loss) Hypertension DX:Hypertension Myocardial infarction ([facility] V24, [facility] V28) DX:Myocardial infarction (HCC) Provoked seizure ([facility] V24, [facility] V28) 09/14/2021 DX:Provoked seizure (HCC) Stroke ([facility] V24, [facility] V28) DX:Stroke (HCC) Tendinitis DX:Tendinitis [3] Patient Active Problem List Diagnosis Vitamin D deficiency Vitamin B12 deficiency Peripheral vascular disease ([facility] V24) Coronary artery disease Diabetes mellitus ([facility] V24, [facility] V28) Mixed hyperlipidemia Primary hypertension Stenosis of carotid artery Age-related osteoporosis without current pathological fracture [4] Past Surgical History: Procedure Laterality Date CARDIAC SURGERY PROCEDURE:CARDIAC SURGERY EYE SURGERY PROCEDURE:EYE SURGERY OTHER SURGICAL HISTORY 02/20/2024 PROCEDURE: NM SLCTV CATHJ 3RD+ ORD SLCTV ABDL PEL/LXTR BRNCH OTHER SURGICAL HISTORY 02/20/2024 PROCEDURE: X-RAY EXAM OF ARM/LEG ARTERY OTHER SURGICAL HISTORY 02/20/2024 PROCEDURE: NM REVASCULARIZATION ILIAC ARTERY ANGIOP 1ST VSL OTHER SURGICAL HISTORY 02/20/2024 PROCEDURE: NM REVSC OPN/PRQ ILIAC ART W/STNT PLMT & ANGIOPLSTY OTHER SURGICAL HISTORY Right 02/20/2024 PROCEDURE: NM REVASC INTRAVASC LITHOTRIPSY OTHER SURGICAL HISTORY Left 02/20/2024 PROCEDURE: NM REVASC INTRA LITHOTRIP-STENT [5] Family History Problem Relation Name Age of Onset Cancer Mother Hypertension Mother Other (Heart disease) Sister Breast cancer Sister Hyperlipidemia Brother Hypertension Brother Diabetes Brother Heart disease Brother [6] Current Outpatient Medications on File Prior to Visit Medication Sig Dispense Refill ammonium lactate (LAC-HYDRIN) 12 % lotion Apply to soles of feet daily. At night wear socks to bed aspirin 81 mg EC tablet Take 1 tablet (81 mg total) by mouth 1 (one) time each day. atorvastatin (LIPITOR) 40 mg tablet Take 1 tablet (40 mg total) by mouth 1 (one) time each day. 90 tablet 1 blood-glucose sensor (FreeStyle Talat 2 Plus Sensor) device Use 1 sensor every 14 days 6 each 2 cholecalciferol (VITAMIN D-3) 50 mcg (2,000 unit) tablet Take 1 tablet (2,000 Units total) by mouth1 (one) time each day. 90 tablet 1 cilostazoL (PLETAL) 50 mg tablet Take 1 tablet (50 mg total) by mouth 2 (two) times a day. clopidogreL (PLAVIX) 75 mg tablet TAKE 1 TABLET BY MOUTH DAILY 30 tablet 11 ezetimibe (ZETIA) 10 mg tablet Take 1 tablet (10 mg total) by mouth 1 (one) time each day. fluticasone propionate (FLONASE) 50 mcg/actuation nasal spray Administer 2 sprays into each nostril1 (one) time each day. Shake gently. Before first use, prime pump. After use, clean tip and replacecap. 16 g 1 ibandronate (BONIVA) 150 mg tablet TAKE 1 TABLET BY MOUTH EVERY 30 DAYS 3 tablet 1 insulin glargine (Lantus Solostar U-100 Insulin) 100 unit/mL (3 mL) injection pen Inject 32 Units into the skin at bedtime, increase by 2 units every 3 days with a max dose of 36 units, if fasting sugars remain over 130 30 mL 1 insulin lispro (HumaLOG KwikPen Insulin) 100 unit/mL injection pen Inject 24 Units into the skin 3 times daily. 45 mL 3 levocetirizine (XYZAL) 5 mg tablet TAKE 1 TABLET BY MOUTH EVERY EVENING 90 tablet 1 losartan (COZAAR) 25 mg tablet Take 1 tablet (25 mg total) by mouth 1 (one) time each day. No current facility-administered medications on file prior to visit. [7] Allergies Allergen Reactions Gabapentin Unknown Confusion, forgetfulness Oxycodone Other hallucinations documented in this encounter Plan of Treatment Upcoming Encounters Date Type Department Care Team (Late st Contact Info) Description 06/03/2025 10:00 AM EDT Evaluation Outpatient Rehabilitation [address], [place] [phone] Christopher Benz, PT 07/29/2025 1:15 PM EST Office Visit Orthopedic Surgery - [place] [address] [facility] [address] [place] [phone] Christopher Arshad, DPM 175 [facility] [address] [place] [address] 08/08/2025 11:30 AM EST Office Visit Vascular Surgery - [place] [address] [facility] [address] [place] [phone] Doc Lantigua MD [address] [place] [phone] 08/20/2025 4:30 PM EST Office Visit [facility] - [address] [phone] Maria Lloyd MD [address] [place] [address] 08/26/2025 2:00 PM EST Office Visit Endocrinology - [address] [phone] Yue Lloyd PA [address] [place] [address] 11/27/2025 10:45 AM EDT Ancillary Procedure [facility] - [facility] [address] [facility] [address] [place] [phone] documented as of this encounter Visit Diagnoses Diagnosis Type 2 diabetes mellitus with other specified complication, with long-term current use of insulin ([facility] V24, CMS/HCC V28)- Primary documented in this encounter Additional Health Concerns Assessment Noted Time PHQ-9 Depression Total Score: 1 11/25/19 25 1:11 PM EDT documented as of this encounter Care Teams Contracting Manager Relationship Specialty Start Date End Date Maria Lloyd MD [address] [place] [phone] PCP - General 07/19/23 documented as of this encounter
--- NOTE | 2025-05-27 14:11 | A.OFFVIS_ITS ---
Intake Visit Reasons: Cognitive issues / Concerns Allergies gabapentin Adverse Reaction (Severe, Verified 05/23/25 09:53) Confusion HPI Comments Details: 79 yo woman who c/o bilateral carpal tunnel syndrome. She had surgery done for both hands by Dr. Wesley. She was feeling better now. [facility] Medical History (Updated 05/27/25 @ 14:13 by Jojo Rico MD) Carpal tunnel syndrome Hypertension Diabetes Hypercholesteremia Surgical History (Updated 03/26/25 @ 14:16 by VARUN Cunningham) Status post trigger finger release Status post carpal tunnel release Hx of CABG Hx of cardiac catheterization Social History Household Members Other:: lives in an in-law apartment at daughter's home Are you a primary clinical manager home care to a significant other at home: No Do you presently have visiting nurse or other home services: No Alcohol intake: former Patient Tobacco Use Status: Former Tobacco user Current occupational status: retired Current occupation: ambidextrous/left hand favored Review of Systems Const Details: Some numbness and aching in hands Physical Exam Neuro Other: She is alert and awake with normal spontaneity of speech fluency comprehension and affect. Mild arthritic changes are noted in hands with scar for carpal tunnel syndrome surgery. Assessment & Plan Assessment & Plan (1) Bilateral carpal tunnel syndrome: Comment: EMG/NCS UEs at off in Oct 2024: Severe R and mod to sev L median neuropathy across the CT Code(s): G56.03 - Carpal tunnel syndrome, bilateral upper limbs Category: Medical Plan Impression: Severe b/l Carpal tunnel syndrome s/p surgery Rec: a: Avoid repititive hand motion b: Wrist splints as needed Coding Level of Care Code Est Pt Level 3 (05545) Diagnoses Bilateral carpal tunnel syndrome G56.03
--- OUTSIDE RECORDS SUMMARY | 2025-05-27 15:07 | XMS_ITS | Clinical Summary ---
Author Organization [address] Address [address] [place] [phone] Phone Care Team Providers Care Therapist Asst Name Role Phone Maria Lloyd MD Primary Care Provider [phone] Allergies Active Allergy Reactions Criticality Noted Date [...] 06/06/2024 Vitamin D deficiency 09/07/2023 Diabetes mellitus ([facility] V24, [facility] V28) 06/2024 Peripheral vascular disease ([facility] V24) 2021 Vitamin B12 deficiency 09/14/2021 Coronary artery disease 07/31/2019 Overview (06/06/2024): History of CABG x2 June 2016; [facility] Mixed hyperlipidemia 07/30/2019 Primary hypertension 01/31/2011 Encounters Date Type Department Care Team Description 05/27/2025 11:30 AM EDT Nutrition Internal Medicine - [place] [address] [facility] [address] [place] [phone] Dorinda Cedeño RD Type 2 diabetes mellitus with other specified complication, with long-term current use of insulin ([facility] V24, [facility] V28) (Primary Dx) 05/16/[address] [phone] Maria Lloyd MD 04/29/2025 11:00 AM EDT Office Visit Orthopedic Surgery [facility] [address] [facility] [address] [place] [phone] Christopher Arshad DPM Controlled type 2 diabetes with neuropathy ([facility] V24, [facility] V28) (Primary Dx); PVD (peripheral vascular disease) ([facility] V24); Metatarsalgia of right foot 04/14/2025 3:30 PM EDT Office Visit [address] [phone] Flaco Lomas PA Spasm (Primary Dx); PAD (peripheral artery disease) ([facility] V24); Claudication ([facility] V24) 04/07/2025 Telephone Vascular Surgery [facility] 300 [facility] [address] [place] [address] Doc Lantigua MD 04/01/2025 11:00 AM EDT Office Visit [address] [phone] Flaco Lomas PA Primary hypertension (Primary Dx); Mixed hyperlipidemia; Vitamin D deficiency; Vitamin B12 deficiency; Non-seasonal allergic rhinitis, unspecified trigger; Type 2 diabetes mellitus with other specified complication, with long-term current use of insulin ([facility] V24, [facility] V28); Dry skin; Memory loss 03/28/2025 9:30 AM EDT Office Visit [facility] 300 [facility] [address] [place] [address] Doc Lantigua MD Aorto-iliac disease ([facility] V24) (Primary Dx); PAD (peripheral artery disease) ([facility] V24); Carotid stenosis, asymptomatic, bilateral 03/26/2025 11:30 AM EDT Office Visit Endocrinology - [address] [phone] Janae [place] PA Type 2 diabetes mellitus with other specified complication, with long-term current use of insulin ([facility] V24, [facility] V28) (Primary Dx); Primary hypertension; Mixed hyperlipidemia 03/04/2025 10:34 AM EDT - 03/04/2025 11:59 PM EDT Hospital Encounter [facility] CT Scan [address] [place] [address] Aorto-iliac disease ([facility] V24); PAD (peripheral artery disease) ([facility] V24) Discharge Disposition: Home or Self Care from Last 3 Months Immunizations Immunization Administration Dates Next Due Pfizer SARS-CoV-2 COVID-19, mRNA, LNP-S, preservative free 02/08/2021,12/26/2020 Surgical History Surgery Date Site/Laterality Comments CARDIAC SURGERY PROCEDURE:CARDIAC SURGERY EYE SURGERY PROCEDURE:EYE SURGERY OTHER SURGICAL HISTORY 02/20/2024 PROCEDURE: TX SLCTV CATHJ 3RD+ ORD SLCTV ABDL PEL/LXTR BRNCH OTHER SURGICAL HISTORY 02/20/2024 PROCEDURE: X-RAY EXAM OF ARM/LEG ARTERY OTHER SURGICAL HISTORY 02/20/2024 PROCEDURE: TX REVASCULARIZATION ILIAC ARTERY ANGIOP 1ST VSL OTHER SURGICAL HISTORY 02/20/2024 PROCEDURE: TX REVSC OPN/PRQ ILIAC ART W/STNT PLMT & ANGIOPLSTY OTHER SURGICAL HISTORY 02/20/2024 Right PROCEDURE: TX REVASC INTRAVASC LITHOTRIPSY OTHER SURGICAL HISTORY 02/20/2024 Left PROCEDURE: TX REVASC INTRA LITHOTRIP-STENT Medical History Medical History Date Comments Arthritis DX:Arthritis Coronary artery disease DX:Coron pallavi artery disease Diabetes mellitus ([facility] V 24, [facility] V28) DX:Diabetes mellitus ([facility]) Hypertension DX:Hypertension Stroke ([facility] V24, [facility] V28) DX:Stroke ([facility]) Provoked seizure ([facility] V2 4, [facility] V28) 09/14/2021 DX:Provoked seizure (HCC) Tendinitis DX:Tendinitis Ankle swelling DX:Ankle swellin g High cholesterol DX:High cholest emilie Myocardial infarction (CMS/H CC V24, CMS/HCC V28) DX:Myocardial infarction (HC C) HL (hearing [...] care for your loved ones. For example, children's author or elderly care for an older adult? [...] EST Inhaled Oxygen Concentration - - Weight 81.6 kg (180 lb) 05/27/2025 1:52 PM EDT Height 167.6 cm (5' 6 ) 05/27/2025 1:52 PM EDT Body Mass Index 29.05 05/27/2025 1:52 PM EDT Plan of Treatment Upcoming Encounters Date Type Department Care Team (Late st Contact Info) Description 06/03/2025 10:00 AM EDT Evaluation Outpatient Rehabilitation - [address] [phone] Christopher Benz, PT 07/29/2025 1:15 PM EST Office Visit Orthopedic Surgery - [place] [address] [facility] [address] [place] [address] Christopher Arshad, DPM 175 [facility] 250 [place] [address] 08/08/2025 11:30 AM EST Office Visit Vascular Surgery - [place] 300 [facility] [address] [place] [address] Doc Lantigua MD [address] [place] [address] 08/20/2025 4:30 PM EST Office Visit [facility] - [address] [phone] Maria Lloyd MD [address] [place] [address] 08/26/2025 2:00 PM EST Office Visit Endocrinology - [address] [phone] Yue Lloyd PA [address] [place] [address] 11/27/2025 10:45 AM EDT Ancillary Procedure [facility] - [facility] 101 [address] [facility] 101 [place] [address] Health Maintenance Due Date Last Done Comments Diabetes: Annual Foot Exam 12/22/1957 Diabetes: Annual Retina Eye Exam 12/22/1957 Pneumococcal Vaccine: 50+ Years (1 of 2 - PCV) 12/22/1966 Zoster Vaccines (1 of 2) 12/22/1997 Hepatitis C Screening 07/26/2022 Medicare Annual Wellness Visit 07/26/2022 RSV Immunization Adult Patients (1 - 1-dose 75+ series) 12/22/2022 COVID-19 Vaccine (3 - season) 2025 02/08/2021, 12/26/2020 Influenza Vaccine (#1) [...] complication, with long-term current use of insulin ([facility] V24, [facility] V28) HEMOGLOBIN A1C Routine 04/14/2025 4:43 PM EDT Type 2 diabetes mellitus with other specified complication, with long-term current use of insulin ([facility] V24, [facility] V28) LIPID PANEL WITH REFLEX TO DIRECT LDL Routine 04/14/2025 4:43 PM EDT Mixed hyperlipidemia VITAMIN D 25 HYDROXY Routine 04/14/2025 4:43 PM EDT Vitamin D deficiency VITAMIN B12 Routine 04/14/2025 4:43 PM EDT Vitamin B12 deficiency CBC AND DIFFERENTIAL Routine 04/14/2025 4:43 PM EDT Type 2 diabetes mellitus with other specified complication, with long-term current use of insulin ([facility] V24, [facility] V28) CT ANGIO ABDOMINAL AORTA W RUNOFF Routine 03/04/2025 11:06 AM EDT Aorto-iliac disease ([facility] V24) PAD (peripheral artery disease) ([facility] V24) BUN Routine 02/25/2025 3:29 PM EDT Aorto-iliac disease ([facility] V24) CREATININE, SERUM Routine 02/25/2025 3:2 9 PM EDT Aorto-iliac disease ([facility] V24) MICROALBUMIN CREATININE URINE RATIO Routine 09/27/2024 12:09 PM EST Type 2 diabetes mellitus with other specified complication, with long-term current use of insulin ([facility] V24, [facility] V28) MG MAMMO DIGITAL SCREENING W KERMIT [...] mg/dL LAB CHEMISTRY METHOD 04/14/2025 7:22 PM [facility] Triglycerides 185(H) 0 - 150 mg/dL LAB CHEMISTRY METHOD 04/14/2025 7:22 PM [facility] HDL 59 >=40 mg/dL LAB CHEMISTRY METHOD 04/14/2025 7:22 PM [facility] LDL Calculated 42 0 - 100 mg/dL LAB CHEMISTRY METHOD 04/14/2025 7:22 PM [facility] Comment:Estimated LDL Calcul ated using equation: Total cholesterol - HDL cholesterol - (Triglycerides/5) VLDL Cholesterol Trip 37 mg/dL LAB CHEMISTRY METHOD 04/14/2025 7:22 PM [facility] Non HDL Chol. (LDL+VLDL) 79 <145 mg/dL LAB CHEMISTRY METHOD 04/14/2025 7:22 PM [facility] Chol/HDL Ratio 2.3 0.0 - 4.4 LAB CHEMISTRY METHOD 04/14/2025 7:22 PM EDT [facility] Blood Venous blood specimen / Unknown Venipuncture / Unknown 04/14/2025 4:43 PM EDT 04/14/2025 4:43 PM EDT us Flaco JARAMILLO LAB BLOOD ORDERABLES Final Res ult [facility] [address] [place] [address], * (ABNORMAL) CBC auto differential (04/14/2025 4:43 PM EDT) WBC 8.1 4.8 - 10.8 K/mcL LAB HEMETOLOGY METHOD 04/14/2025 6:44 PM EDT [facility] RBC 4.60 3.80 - 4.80 M/mcL LAB HEMETOLOGY METHOD 04/14/2025 6:44 PM EDT [facility] Hemoglobin 12.8 11.5 - 16.0 g/dL LAB HEMETOLOGY METHOD 04/14/2025 6:44 PM EDT [facility] Hematocrit 40.9 35.0 - 47.0 % LAB HEMETOLOGY METHOD 04/14/2025 6:44 PM EDT [facility] MCV 88.9 79.0 - 98.0 FL LAB HEMETOLOGY METHOD 04/14/2025 6:44 PM EDT [facility] MCH 27.8 27.0 - 32.0 pcg LAB HEMETOLOGY METHOD 04/14/2025 6:44 PM EDT [facility] MCHC 31.3(L) 32.0 - 37.0 g/dL LAB HEMETOLOGY METHOD 04/14/2025 6:44 PM EDT [facility] RDW 15.2(H) 11.0 - 15.0 % LAB HEMETOLOGY METHOD 04/14/2025 6:44 PM EDT [facility] Platelets 188 130 - 400 K/mcL LAB HEMETOLOGY METHOD 04/14[facility]2025 6[facility] MPV 12.4(H) 7.0 - 11.0 FL LAB HEMETOLOGY METHOD 04/14/2025 6:44 [facility] NRBC 0.0 <1.0 % LAB HEMETOLOGY METHOD 04/14/2025 6:44 PM EDT [facility] NRBC Absolute 0.00 <0.10 K/mcL LAB HEMETOLOGY METHOD 04/14/2025 6:[facility] Neutrophils Relative 61.7 % LAB HEMETOLOGY METHOD 04/14/2025 6:44 PM [facility] Lymphocytes Relative 26.9 % LAB HEMETOLOGY METHOD 04/14/2025 6:44 PM [facility] Monocytes Relative 8.4 % LAB HEMETOLOGY METHOD 04/14/2025 6:44 PM [facility] Eosinophils Relative 2.2 % LAB HEMETOLOGY METHOD 04/14/2025 6:44 PM [facility] Basophils Relative 0.6 % LAB HEMETOLOGY METHOD 04/14/2025 6:44 PM [facility] Immature Granulocytes Relative 0.2 % LAB HEMETOLOGY METHOD 04/14/2025 6:44 [facility] Neutrophils Absolute 4.97 1.50 - 7.00 K/mcL LAB HEMETOLOGY METHOD 04/14/2025 6:44 [facility] Lymphocytes Absolute 2.17 1.00 - 5.00 K/mcL LAB HEMETOLOGY METHOD 04/14/2025 6:44 PM [facility] Monocytes Absolute 0.68 0.20 - 1.00 K/mcL LAB HEMETOLOGY METHOD 04/14/2025 6:44 PM EDT [facility] Eosinophils Absolute 0.18 0.00 - 0.50 K/[facility] LAB HEMETOLOGY METHOD 04/14/2025 6:44 PM EDT [facility] Basophils Absolute 0.05 0.00 - 0.20 K/[facility] LAB HEMETOLOGY METHOD 04/14/2025 6:44 PM EDT [facility] Immature Granulocytes Absolute 0.02 0.00 - 0.03 K/[facility] LAB HEMETOLOGY METHOD 04/14/2025 6:44 PM EDT [facility] Blood Venous blood specimen / Unknown Venipuncture / Unknown 04/14/2025 4:43 PM EDT 04/14/2025 4:43 PM EDT Flaco JARAMILLO LAB BLOOD ORDERABLES Final Res ult Performing Organization Address City/[facility]/ZIP Co de Phone Number [facility] [address] [place] [address], [place] [phone] * (ABNORMAL) Vitamin D 25 hydroxy (04/14/2025 4:43 PM EDT) [facility] Vit D, 25-Hydroxy 27.8(L) 30.0 - 80.0 ng/mL LAB CHEMISTRY METHOD 04/14/2025 7:35 PM EDT [facility] Blood Venous blood specimen / Unknown Venipuncture / Unknown 04/14/2025 4:43 PM EDT 04/14/2025 4:43 PM EDT Flaco JARAMILLO LAB BLOOD ORDERABLES Final Res ult [facility] [address] [place] [address], [place] [phone] * (ABNORMAL) Hemoglobin A1c (04/14/2025 4:43 PM EDT) Hemoglobin A1C 7.8(H) <6.5 % LAB CHEMISTRY METHOD 04/14/2025 8:18 PM EDT [facility] Mean Bld Glu Estim. 177 mg/dL LAB CHEMISTRY METHOD 04/14/2025 8:18 PM EDT [facility] Blood Venous blood specimen / Unknown Venipuncture / Unknown 04/14/2025 4:43 PM EDT 04/14/2025 4:43 PM EDT Janae JARAMILLO LAB BLOOD ORDERABLES Final Result [facility] [address] [place] [address], [place] [phone] * Vitamin B12 (04/14/2025 4:43 PM EDT) Pathologist [facility] Vitamin B-12 739 250 - 900 pcg/mL LAB CHEMISTRY METHOD 04/14/2025 7:22 PM EDT [facility] Blood Venous blood specimen / Unknown Venipuncture / Unknown 04/14/2025 4:43 PM EDT 04/14/2025 4:43 PM EDT Flaco JARAMILLO LAB BLOOD ORDERABLES Final Res ult [facility] [address] [place] [address], [place] [phone] * CT Angio Abdominal Aorta w Runoff [...] Signed Date: 03/05/2025 11:21 ET Workstation ID: [id number] Transcribed By: Self Edit Transcribed Date: 03/05/2025 [...] the trifurcation vessels, most prominently affecting the SLASHER OPERATOR, which appears largely occluded and reconstitutes via [...] in the trifurcationvessels, most prominently affecting the SLASHER OPERATOR, which appears largelyoccluded and reconstitutes via collaterals [...] Signed Date: 03/05/2025 11:21 ET Workstation ID: [id number] Transcribed By: Self Edit Transcribed Date: 03/05/2025 10:55 ET us Doc Lantigua MD IMG CT PROCEDURES Final Result * (ABNORMAL) Creatinine (02/25/2025 3:29 PM EDT) Creatinine 1.17(H) 0.50 - 1.10 mg/dL LAB CHEMISTRY METHOD 02/25/2025 6:34 PM EDT [facility] eGFR 48(L) >=60 mL/min/1. 73m2 LAB CHEMISTRY METHOD 02/25/2025 6:34 PM EDT [facility] Comment:Calculation based on the Chronic Kidney Disease Epidemiology Collaboration (CKD-EPI) equation refit without adjustment for race. Blood Venous blood specimen / Unknown Venipuncture / Unknown 02/25/2025 3:29 PM EDT 02/25/2025 3:29 PM EDT us Doc Lantigua MD LAB BLOOD ORDERABLES Final Resu lt Performing Organization Address [facility]/ZIP Co de Phone Number [facility] [address] [place] [address], [place] [phone] * BUN (02/25/2025 3:29 PM EDT) BUN 21 5 - 25 mg/dL LAB CHEMISTRY METHOD 02/25/2025 6:34 PM EDT [facility] Blood Venous blood specimen / Unknown Venipuncture / Unknown 02/25/2025 3:29 PM EDT 02/25/2025 3:29 PM EDT Doc Lantigua MD LAB BLOOD ORDERABLES Final Resu lt Performing Organization Address [facility] Co de Phone Number [facility] [address] [place] [address], [place] [phone] * (ABNORMAL) Microalbumin creatinine urine ratio (09/27/2024 12:09 PM EST) Creatinine, Urine 168.0 mg/dL LAB CHEMISTRY METHOD 09/27/2024 3:24 PM EST [facility] Microalb, Ur 61.5(H) 0.0 - 29.0 mg/L LAB CHEMISTRY METHOD 09/27/2024 3:24 PM EST [facility] Microalb/Crea t Ratio 37(H) <30 mg/g creat LAB CHEMISTRY METHOD 09/27/2024 3:24 PM EST [facility] Urine Urine specimen obtained by clean catch procedure / Unknown Non-blood Collection / Unknown 09/27/2024 12:09 PM EST 09/27/2024 12:09 PM EST Yue JARAMILLO LAB URINE ORDERABLES Final Resul t Performing Organization Address City/[facility]/ZIP Co de Phone Number [facility] [address] [place] [address], * MG Mammo Digital Screening w Kermit bilat (08/13/2024 11:35 AM EST) Anatomical Region Laterality Modality Breast Bilateral Mammography 08/13/2024 7:05 PM EST Impressions 08/13/2024 7:06 PM EST No mammographic evidence of malignancy. BREAST DENSITY: B - There are scattered areas of fibroglandular density. BI-RADS CATEGORY: 1 - NEGATIVE RECOMMENDATION: Screening bilateral mammogram is recommended in 1 year. MAMMO LOCATION: [facility], [address] [place] [address], [address], . -------- FINAL REPORT -------- Dictated By: Laury Junior Dictated Date: 08/13/2024 19:05 ET Assigned Physician: Laury Junior Reviewed and Electronically Signed By: Laury Junior Signed Date: 08/13/2024 19:06 ET Workstation ID: [id number] Transcribed By: Self Edit Transcribed Date: 08/13/2024 [...] is recommended in 1 year. MAMMO LOCATION: [facility], [address] [place] [address], [phone], . -------- FINAL REPORT -------- Dictated By: Laury Junior Dictated Date: 08/13/2024 19:05 ET Assigned Physician: Laury Junior Reviewed and Electronically Signed By: Laury Junior Signed Date: 08/13/2024 19:06 ET Workstation ID: [id number] Transcribed By: Self Edit Transcribed Date: 08/13/2024 19:05 ET us Maria Lloyd MD IM BI PROCEDURES Final Result * BD Bone Density DXA Axial Skeleton (08/13/2024 11:03 AM EST) Anatomical Region Laterality Modality Wrist, Hip, L-spine Bone Densito metry 08/13/2024 11:1 1 AM EST Impressions 08/13/2024 11:12 AM EST Normal bone mineral density by WHO criteria. The [facility] Department of Internal Medicine recommends using National [...] alternative screening schedule based on esthela Goncalves., [facility] September 15, 2011 for patients [...] Signed Date: 08/13/2024 11:12 ET Workstation ID: [id number] Transcribed By: Self Edit Transcribed Date: 08/13/2024 [...] bone mineral density by WHO criteria. The [facility] Department of Internal Medicine recommendsusing National Osteoporosis [...] alternative screening schedule based on esthela Goncalves., NEJJanuary 2011 for patients with osteopenia (based on [...] Signed Date: 08/13/2024 11:12 ET Workstation ID: [id number] Transcribed By: Self Edit Transcribed Date: 08/13/2024 11:11 ET Maria Lloyd MD IM DXA PROCEDURES Final Result from Last 3 Months or Most Recently Relevant to Health Maintenance Insurance [employer] MEDICARE [place]ICA[place] - [place] Care Teams Therapist Asst Relationship Specialty Start Date End Date Maria Lloyd MD [address] [place] [phone] PCP - General 07/19/23
--- OUTSIDE RECORDS SUMMARY | 2025-05-27 15:07 | XMS_ITS | Patient Health Record ---
Author Organization [facility] Address [address] [place] [address] Care Team Providers Care Sales Engagement Manager Name Role Phone BOONE MENDIOLA DO Primary Care Provider Dean Wang Unavailable [phone] CHAS BROCK MD Unavailable Unavailable Reason For [...] Status Risk Notes Problem Peripheral vascular disease (202342845) PAD (peripheral artery disease) (I73.9) Active confirmed Problem Arteriosclerosis of coronary artery bypass graft (983595944) 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 (I25.810) Active confirmed Problem Hyperlipidaemia (35337383) Hyperlipidemia, unspecified hyperlipidemia type (E78.5) Active confirmed Problem Type 2 diabetes mellitus with peripheral angiopathy (662101170) Type 2 diabetes mellitus with diabetic peripheral angiopathy without gangrene, without long-term current use of insulin (E11.51) Active confirmed Problem Mixed hyperlipidemia (581793302) Mixed dyslipidemia (E78.2) Active confirmed Plan Of Treatment Future Test Test Name Order Date Echocardiogram 04/07/2020 L CATH W/GRAPH 04/07/2020 Insurance Providers Payer Name Payer Address Payer Phone Subscriber Number Group Number Insured Name Patient Relationship to Insured Coverage Start Date Coverage End Date [employer] [place] [address] [address] [place] [address] [id number] NICOLAS PERALTA Self - patient is the insured MEDICAID TMHP [address] [place], [place] [id number] [phone] [id number] NICOLAS PERALTA Self - patient is the insured Medical (General) History Medical History History ICD Code TIA (transient ischemic attack) TIA (transient ischemic attack) G45.9 Surgical History Surgery Date(Month/Year) vaginal delivery 1985 Hospitalization History Reason Date(Month/Year) TIA 07/2019
--- OUTSIDE RECORDS SUMMARY | 2025-05-27 15:07 | XMS_ITS | Patient Health Record ---
Author Organization [facility], Address [address] [facility] Rachel Cl[place] [id number] Support Name Relationship Address Phone Maryjo Lagunas Guarantor Unknown [phone] Reason For Referral No Information Medications Medication [...] W/U Status Risk Notes Problem Essential hypertension (28781742) Essential hypertension (I10) Active confirmed Problem Dyslipidemia (880014037) Dyslipidemia (E78.5) Active confirmed Problem Coronary arteriosclerosis (disorder) (05823706) CAD in [place] artery (I25.10) Active confirmed Problem Tachycardia (9313445) Tachycardia (R00.0) Active confirmed Problem Mitral valve disorder (35283137) Mitral valve disorder (I05.9) Active confirmed Plan Of Treatment No Information
--- OUTSIDE RECORDS SUMMARY | 2025-05-27 15:07 | XMS_ITS | Clinical Summary ---
Author Organization [facility] Address [address] [place] [address] Care Team Providers Care Motion Picture Projectionist Name Role Phone Unavailable Primary Care Provider [...] 5 07/16/2021 Active Insulin Pen Needle (Pen [place]) 32G X 4 MM MISC Inject 1 [...] each 4 12/15/2022 Active Continuous Blood Gluc Back Tender Fourdrinier (FreeStyle [place]at 2 [place]) DEVIIndications:Typ e 2 diabetes mellitus without complication, [...] of CABG x2 June 2016; [facility] Carotid artery stenosis, symptomatic 07/31/2019 Hx [...] Advance Directives For more information, please contact: [phone] Latest Code Status on File Code Status Date Activated Date Inactivated Comments Full Code 07/06/2021 5:04 PM 07/17/2021 3:16 AM This code status was ascertained in the following way: discussion with patient .
== END ==
LOC: HO.HSM 13:48
PROVIDERS: PCP Internal Medicine; Visit Provider Psychiatry & Neurology Neurology
DX: G56.03 Carpal tunnel syndrome, bilateral upper limbs (principal)
CPT/HCPCS: 99213

== ENCOUNTER 2025-06-06 10:50 | Outpatient (AMB) | payer OTHER, SELFPAY ==
[2025-06-06 11:14] VITALS: BP 108/50; PULSE 85; RESP 16; O2SAT 98; BMI 29.0
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
== END 2025-06-06 11:45 | disposition home or self-care (01) ==
LOC: HO.HSM 10:51
PROVIDERS: PCP Internal Medicine; Visit Provider Nurse Practitioner
DX: R06.83 Snoring (principal); Z72.820 Sleep deprivation; R40.0 Somnolence; G44.229 Chronic tension-type headache, not intractable
CPT/HCPCS: 99214

== ENCOUNTER → 2025-06-06 10:50 | Outpatient (BNVA) | payer OTHER, SELFPAY | PROVIDERS: PCP Internal Medicine; Visit Provider Nurse Practitioner | DX: G44.229 Chronic tension-type headache, not intractable (principal) | CPT/HCPCS: 99212 ==

== ENCOUNTER 2025-08-12 11:06 | Outpatient (AMB) | payer OTHER, SELFPAY ==
--- OUTSIDE RECORDS SUMMARY | 2025-04-12 04:00 | XMS_ITS ---
Author Organization [facility] Address [address] [place] [address] Care Team Providers Care Rubber Mixer Name Role Phone Kian Giron Primary Care Provider Unavailab le Migration, Provider Unavailable Unavailable REASON FOR VISIT EMR-Andre Encounters Encounter Location Date Provider Diagnosis Migrated_Facility 0 0 04/12/2025 Provider Migration Plan Of Treatment Medication Medication Name Sig Start Date Stop Date Notes Clopidogrel Bisulfate 75 MG Tablet Oral 03/08/2016 05/02/2025 EFFERVESCENT DENTURE TABS 06/02/2016 11/28/2016 *Reorder from [facility] for eRx and Interaction Alerts* first aid tape 08/11/2016 11/28/2016 *[facility]* Famotidine 20 MG Tablet take 1 tablet by oral route 2 times every day Oral 05/02/2025 Furosemide 20 MG Tablet TAKE ONE TABLET BY MOUTH ONCE DAILY Oral 05/02/2025 GENERIC COUGH SUPPRESSANT/NASA 07/18/2016 11/28/2016 *Reorder from [facility] for eRx and Interaction Alerts* TRIPLE ANTIBIOTIC OINTMENT 07/18/2016 11/28/2016 *Reorder from [facility] for eRx and Interaction Alerts* SINGLE USE SWAB PADS, MEDICATED (EA) TOPICAL 11/30/2016 01/10/2017 *Reorder from [facility] for eRx and Interaction Alerts* Atorvastatin Calcium 40 MG Tablet take 1 tablet by oral route every day Oral 05/02/2025 acetaminophen 80 mg 06/02/2016 11/28/2016 *Reor jonny from [facility] for eRx and Interaction Alerts* FLUZONE HIGH-DOSE 1077-4188 180 mcg/0.5 mL Suspension Prefilled Syringe Intramuscular 05/26/2017 07/05/2017 *Reorder from [facility] for eRx and Interaction Alerts* TRAMADOL HCL 50 MG TABLET 03/08/2016 05/02/2025 *Reorder from [facility] for eRx and Interaction Alerts* ASPIRIN LOW DOSE 81MG EC 07/18/2016 11/28/2016 *Reorder from [facility] for eRx and Interaction Alerts* DIABETIC SKIN RELIEF FOOT CREA 08/12/2016 11/28/2016 *Reorder from [facility] for eRx and Interaction Alerts* ACCU-CHEK FASTCLIX EACH MISCELLANEOUS 06/02/2017 07/05/2017 *Reorder from [facility] for eRx and Interaction Alerts* one a day womens multivitamin 06/02/2016 05/02/2025 *Reorder from [facility] for eRx and Interaction Alerts* PIOGLITAZONE HCL 30 MG TABLET 12/18/2015 05/02/2025 *Reorder from [facility] for eRx and Interaction Alerts* Janumet XR 50-1000 MG Tablet Extended Release 24 Hour take 1 tablet by mouth twice daily Oral 04/13/2017 11/01/2017 Accu-Chek [place]ma SmartView EACH MISCELLANEOUS 04/13/2016 11/28/2016 Accu-Chek SmartView Strip In Vitro 06/02/2017 07/05/2017 Accu-Chek SmartView EACH MISCELLANEOUS 05/10/2016 11/28/2016 *Pick strength-f orm from [facility] for eRX* Tylenol 325 MG Tablet take 2 tablet by o ral route every 6 hours as needed Oral 07/05/2017 Ventolin HFA 108 (90 Base) MCG/ACT Aerosol Solution inhale 2 puff by inhalation route every 4 - 6 hours as needed Inhalation 01/10/2017 traMADol HCl 50 MG Tablet take 1 tablet by oral route every 6 hours as needed Oral 07/05/2017 METFORMIN HCL 850 MG TABLET 12/18/2015 05/02/2025 *Reorder from [facility] for eRx and Interaction Alerts* VENTOLIN HFA 90 MCG INHALER 12/15/2015 05/02/2025 *Reorder from [facility] for eRx and Interaction Alerts* BD SINGLE USE SWAB 05/10/2016 05/02/2025 *Reord er from [facility] for eRx and Interaction Alerts* Pioglitazone HCl 30 MG Tablet Oral 12/21/2015 11/28/2016 Plavix 75 MG Tablet Oral every day 07/05/2017 Ondansetron HCl 4 MG Tablet Oral 05/09/2016 11/28/2016 glyBURIDE 5 MG Tablet Oral 12/21/2015 11/28/2016 Janumet 50-1000 MG Tablet Oral 2 times a day 07/05/2017 Doxycycline Monohydrate 100 MG Capsule Oral 09/05/2017 11/01/2017 Gabapentin 100 MG Capsule Oral 12/24/2015 11/28/2016 Lisinopril 10 MG Tablet Oral 12/18/2015 11/28/2016 Accu-Chek SmartView Test Strip 04/13/2016 05/02/2025 *Reorder from [facility] for eRx and Interaction Alerts* METOPROLOL TARTRATE 25 MG TAB 03/22/2016 05/02/2025 *Reorder from [facility] for eRx and Interaction Alerts* diazePAM 5 MG Tablet take 1 tablet by mo [facility] daily Oral 04/07/2017 07/05/2017 Dicyclomine HCl 10 MG Capsule Oral 09/05/2017 11/01/2017 Colace 100 MG Capsule take 1 capsule by oral route 2 times every day at bedtime as needed Oral 11/28/2016 Calamine Lotion External 06/02/2016 11/28/2016 Acetaminophen-Codeine #3 300-30 MG Tablet Oral 04/07/2017 04/12/2017 *Reorder [facility] for eRx and Interaction Alerts* Amoxicillin-Pot Clavulanate 875-125 MG Tablet Oral 03/29/2017 04/12/2017 Cefuroxime Axetil 500 MG Tablet Oral 12/15/2015 11/28/2016 Claritin 10 mg Tablet take 1 tablet by o ral route every day as needed Oral 04/12/2017 metFORMIN HCl 850 MG Tablet take 1 tablet by oral route 3 times every day with morning and evening meals Oral 05/02/2025 Lasix 20 MG Tablet take 1 tablet by ora l route every day Oral 05/02/2025 Simvastatin 40 MG Tablet Oral 12/18/2015 05/02/2025 Metoprolol Tartrate 25 MG Tablet take 1 tablet by oral route 2 times every day Oral 05/02/2025 Accu-Chek FastClix Lancets 04/13/2016 05/02/2025 Glimepiride 4 MG Tablet take 2 tablet by ORAL route every day Oral 05/02/2025 Progress Notes * NICOLAS PERALTADOB:1945 (79 yo F)Acc No.[id number]:04/12/2025 Patient: NICOLAS NGUYEN :1945 A ge:79 Y S ex:Female Address:[address] [place] [address], [place] [address] * Refills Stop Acetaminophen-Codeine #3 Tablet, 300-30 MG, Oral, 3 Stop Amoxicillin-Pot Clavulanate Tablet, 875-125 MG, Oral, 10 Stop Calamine Lotion, External, 30 Stop Cefuroxime Axetil Tablet, 500 MG, Oral, 7 Stop Claritin Tablet, 10 mg, Oral, take 1 tablet by oral route every day as needed Stop Clopidogrel Bisulfate Tablet, 75 MG, Oral, 90 Stop Colace Capsule, 100 MG, Oral, take 1 capsule by oral route 2 times every day at bedtime as needed Stop diazePAM Tablet, 5 MG, Oral, [id number], take 1 tablet by mouth daily Stop Dicyclomine HCl Capsule, 10 MG, Oral, 9 Stop Doxycycline Monohydrate Capsule, 100 MG, Oral, 10 Stop Gabapentin Capsule, 100 MG, Oral, 30 Stop glyBURIDE Tablet, 5 MG, Oral, 30 Stop Janumet Tablet, 50-1000 MG, Oral, 2 times a day Stop Lisinopril Tablet, 10 MG, Oral, 90 Stop metFORMIN HCl Tablet, 850 MG, Oral, 90 Stop Ondansetron HCl Tablet, 4 MG, Oral, 7 Stop Pioglitazone HCl Tablet, 30 MG, Oral, 10 Stop Plavix Tablet, 75 MG, Oral, every day Stop Simvastatin Tablet, 40 MG, Oral, 90 Stop traMADol HCl Tablet, 50 MG, Oral, take 1 tablet by oral route every 6 hours as needed Stop Tylenol Tablet, 325 MG, Oral, take 2 tablet by oral route every 6 hours as needed Stop Ventolin HFA Aerosol Solution, 108 (90 Base) MCG/ACT, Inhalation, inhale 2 puff by inhalation route every 4 - 6 hours as needed Stop Accu-Chek SmartView EACH, MISCELLANEOUS, 90 Stop Accu-Chek SmartView Strip, In Vitro, 90 Stop Accu-Chek SmartView Strip, In Vitro, 90 Stop Janumet XR Tablet Extended Release 24 Hour, 50-1000 MG, Oral, [id number], take 1 tablet by mouth twice daily Stop Accu-Chek Delma SmartView EACH, MISCELLANEOUS, 90 Stop ACCU-CHEK FASTCLIX EACH, MISCELLANEOUS, 90 Stop ACCU-CHEK FASTCLIX EACH, MISCELLANEOUS, 90 Stop ASPIRIN LOW DOSE 81MG EC, 30 Stop DIABETIC SKIN RELIEF FOOT CREA, 30 Stop FLUZONE HIGH-DOSE 7025-3419 Suspension Prefilled Syringe, 180 mcg/0.5 mL, Intramuscular, 1 Stop GENERIC COUGH SUPPRESSANT/NASA, 30 Stop SINGLE USE SWAB PADS, MEDICATED (EA), TOPICAL, 90 Stop SINGLE USE SWAB PADS, MEDICATED (EA), TOPICAL, 90 Stop acetaminophen 80 mg, 30 Stop one a day womens multivitamin, 30 Stop TRIPLE ANTIBIOTIC OINTMENT, 30 Stop EFFERVESCENT DENTURE TABS, 30 Stop first aid tape, 30 Stop Atorvastatin Calcium Tablet, 40 MG, Oral, take 1 tablet by oral route every day Stop Atorvastatin Calcium Tablet, 40 MG, Oral, 90 Stop Atorvastatin Calcium Tablet, 40 MG, Oral, 60 Stop Atorvastatin Calcium Tablet, 40 MG, Oral, 60 Stop Atorvastatin Calcium Tablet, 40 MG, Oral, 31 Stop Atorvastatin Calcium Tablet, 40 MG, Oral, 90 Stop Atorvastatin Calcium Tablet, 40 MG, Oral, 90 Stop Atorvastatin Calcium Tablet, 40 MG, Oral, 90 Stop Atorvastatin Calcium Tablet, 40 MG, Oral, 90 Stop Clopidogrel Bisulfate Tablet, 75 MG, Oral, 90 Stop Clopidogrel Bisulfate Tablet, 75 MG, Oral, 60 Stop Clopidogrel Bisulfate Tablet, 75 MG, Oral, 60 Stop Clopidogrel Bisulfate Tablet, 75 MG, Oral, 31 Stop Famotidine Tablet, 20 MG, Oral, take 1 tablet by oral route 2 times every day Stop Famotidine Tablet, 20 MG, Oral, 45 Stop Famotidine Tablet, 20 MG, Oral, 45 Stop Famotidine Tablet, 20 MG, Oral, 90 Stop Famotidine Tablet, 20 MG, Oral, 90 Stop Famotidine Tablet, 20 MG, Oral, 90 Stop Famotidine Tablet, 20 MG, Oral, 90 Stop Famotidine Tablet, 20 MG, Oral, 90 Stop Furosemide Tablet, 20 MG, Oral, [id number], TAKE ONE TABLET BY MOUTH ONCE DAILY Stop Furosemide Tablet, 20 MG, Oral, 30 Stop Furosemide Tablet, 20 MG, Oral, 30 Stop Furosemide Tablet, 20 MG, Oral, 30 Stop Furosemide Tablet, 20 MG, Oral, 30 Stop Furosemide Tablet, 20 MG, Oral, 30 Stop Furosemide Tablet, 20 MG, Oral, 30 Stop Furosemide Tablet, 20 MG, Oral, 30 Stop Furosemide Tablet, 20 MG, Oral, 30 Stop Furosemide Tablet, 20 MG, Oral, 30 Stop Furosemide Tablet, 20 MG, Oral, 30 Stop Furosemide Tablet, 20 MG, Oral, 30 Stop Furosemide Tablet, 20 MG, Oral, 30 Stop Furosemide Tablet, 20 MG, Oral, 30 Stop Furosemide Tablet, 20 MG, Oral, 30 Stop Furosemide Tablet, 20 MG, Oral, 30 Stop Glimepiride Tablet, 4 MG, Oral, take 2 tablet by ORAL route every day Stop Glimepiride Tablet, 4 MG, Oral, 30 Stop Glimepiride Tablet, 4 MG, Oral, 30 Stop Glimepiride Tablet, 4 MG, Oral, 90 Stop Glimepiride Tablet, 4 MG, Oral, 90 Stop Glimepiride Tablet, 4 MG, Oral, 90 Stop Glimepiride Tablet, 4 MG, Oral, 90 Stop Glimepiride Tablet, 4 MG, Oral, 90 Stop Lasix Tablet, 20 MG, Oral, take 1 tablet by oral route every day Stop metFORMIN HCl Tablet, 850 MG, Oral, take 1 tablet by oral route 3 times every day with morning and evening meals Stop Metoprolol Tartrate Tablet, 25 MG, Oral, take 1 tablet by oral route 2 times every day Stop Simvastatin Tablet, 40 MG, Oral, 90 Stop Accu-Chek FastClix Lancets, 90 Stop Accu-Chek FastClix Lancets, 90 Stop Accu-Chek FastClix Lancets, 90 Stop Accu-Chek SmartView Test Strip, 90 Stop Accu-Chek SmartView Test Strip, 90 Stop Accu-Chek SmartView Test Strip, 90 Stop METOPROLOL TARTRATE 25 MG TAB, 30 Stop METOPROLOL TARTRATE 25 MG TAB, 90 Stop METOPROLOL TARTRATE 25 MG TAB, 90 Stop METOPROLOL TARTRATE 25 MG TAB, 90 Stop METOPROLOL TARTRATE 25 MG TAB, 90 Stop METOPROLOL TARTRATE 25 MG TAB, 90 Stop VENTOLIN HFA 90 MCG INHALER, 17 Stop VENTOLIN HFA 90 MCG INHALER, 50 Stop BD SINGLE USE SWAB, 90 Stop BD SINGLE USE SWAB, 90 Stop METFORMIN HCL 850 MG TABLET, 90 Stop METFORMIN HCL 850 MG TABLET, 10 Stop METFORMIN HCL 850 MG TABLET, 30 Stop METFORMIN HCL 850 MG TABLET, 90 Stop METFORMIN HCL 850 MG TABLET, 90 Stop METFORMIN HCL 850 MG TABLET, 90 Stop METFORMIN HCL 850 MG TABLET, 90 Stop one a day womens multivitamin, 30 Stop PIOGLITAZONE HCL 30 MG TABLET, 90 Stop TRAMADOL HCL 50 MG TABLET, 15 Stop TRAMADOL HCL 50 MG TABLET, 45 Stop TRAMADOL HCL 50 MG TABLET, 45 Subjective: * Chief Complaints: * E MR-Andre * * Date:
--- OUTSIDE RECORDS SUMMARY | 2025-04-13 04:00 | XMS_ITS ---
Author Organization [facility] Address [address] [facility] [address] [place] [address] Care Team Providers Care Airline Manager Name Role Phone Kian Giron Primary Care Provider Unavailab le Migration, Provider Unavailable Unavailable Allergies Allergen (clinical drug ingredient) Drug/Non Drug Allergy documented on EMR Reaction Allergy Type Onset Date Status orphenadrine Orphenadrine Citrate Unknown Drug Allergy 02/2018 Active REASON FOR VISIT EMR-Andre Medications Medication SIG (Take, Route, Frequency, Duration) Notes Start Date End Date Status Furosemide 20 MG Tablet Oral 10/06/2017 Active Farxiga 5 MG Tablet take 1 tablet by mouth every day Oral 09/05/2017 Active PREDNISOLONE AC 1% EYE DROP *Reorder from [facility] for eRx and Interaction Alerts* 07/29/2017 Active GNP Vitamin D Super Strength 5000 UNIT Tablet Oral every day *Pick strength-form from [facility] for eRX* Active Aspirin Adult Low Strength 81 MG Tablet Delayed Release Oral every day Active metFORMIN HCl 1000 MG Tablet take 1 tablet by mouth twice daily Oral 09/14/2017 Active Simvastatin 10 MG Tablet take 1 tablet by mouth every day Oral 09/05/2017 Active Multi-Vitamin Tablet take 1 tablet by oral route every day Oral Active CIPROFLOXACIN 0.3% EYE DROP *Reorder from [facility] for eRx and Interaction Alerts* 07/29/2017 Active Atorvastatin Calcium 40 MG Tablet Oral 07/05/2017 Active METOPROLOL TARTRATE 25 MG TAB *Reorder from [facility] for eRx and Interaction Alerts* 07/05/2017 Active Glimepiride 4 MG Tablet Oral 07/05/2017 Active FLUZONE HIGH-DOSE 2017-18 SYR *Reorder from [facility] for eRx and Interaction Alerts* 05/26/2017 Active Famotidine 20 MG Tablet Oral 07/05/2017 Active Social History Social History Additional Details Category Social Info Options Details Migrated Social History Migrated Social History Alcohol Use?: No, Caffeine Use?: Yes, Diet?: regular, Do You Have Children?: Yes, Exercise Frequency?: 6-7 times/week, Live alone or with others?: with others, Marital Status Comments?: single, Most Recent Tobacco Use Screenin07/05/2017, Number of children: 2, Reviewed Date: 07/05/2017, Tobacco Smoking Status: formerly Encounters Encounter Location Date Provider Diagnosis Migrated_Facility 0 0 04/13/2025 Provider Migration Plan Of Treatment No Information Progress Notes * CHRISTIANO PERALTAEVANGELISTADOB:1945 (79 yo F)Acc No.[id number]:04/13/2025 Patient: NICOLAS NGUYEN :1945 A ge:79 Y S ex:Female Address:[address] [place], [place] [id number] Subjective: * Chief Complaints: * E MR-Andre * Medical History: Problems: Coronary arteriosclerosis Coronary bypass graft finding Dyslipidemia Hypertensive disorder Mitral valve regurgitation Tachycardia Tobacco dependence in remission Type 2 diabetes mellitus * Surgical History: Unlisted px cardiac surgery (77536) 2V CABG: CORNEJO-LAD, VG-OM1 02/08/2016 * Family History: M igrated Family History: Unspecified Relation: Cerebrovascular accident , Coronary arteriosclerosis . M other: Disorder of colon . * Social History: M igrated Social History: M igrated Social History: Alcohol Use?: No, C affeine Use?: Yes, D iet?: regular, D o You Have Children?: Yes, E xercise Frequency?: 6-7 times/week, L haily alone or with others?: with others, M arital Status Comments?: single, M ost Recent Tobacco Use Screenin07/05/2017, N umber of children: 2, R eviewed Date: 07/05/2017, T obacco Smoking Status: formerly. * Medications: T akingAtorvastatin Calcium 40 MG Tablet Oral Famotidine 20 MG Tablet Oral Furosemide 20 MG Tablet Oral Glimepiride 4 MG Tablet Oral metFORMIN HCl 1000 MG Tablet take 1 tablet by mouth twice daily Oral Multi-Vitamin Tablet take 1 tablet by oral route every day Oral Simvastatin 10 MG Tablet take 1 tablet by mouth every day Oral Aspirin Adult Low Strength 81 MG Tablet Delayed Release Oral every day GNP Vitamin D Super Strength 5000 UNIT Tablet Oral every day , Notes to Pharmacist: *Pick strength- form from [facility] for eRX*Farxiga 5 MG Tablet take 1 tablet by mouth every day Oral METOPROLOL TARTRATE 25 MG TAB , Notes to Pharmacist: *Reorder from [facility] for eRx and Interaction Alerts*CIPROFLOXACIN 0.3% EYE DROP , Notes to Pharmacist: *Reorder from [facility] for eRx and Interaction Alerts*PREDNISOLONE AC 1% EYE DROP , Notes to Pharmacist: *Reorder from [facility] for eRx and Interaction Alerts*FLUZONE HIGH- DOSE SYR , Notes to Pharmacist: *Reorder from [facility] for eRx and Interaction Alerts*Taking Atorvastatin Calcium 40 MG Tablet Oral Taking Famotidine 20 MG Tablet Oral Taking Furosemide 20 MG Tablet Oral Taking Glimepiride 4 MG Tablet Oral Taking metFORMIN HCl 1000 MG Tablet take 1 tablet by mouth twice daily Oral Taking Multi-Vitamin Tablet take 1 tablet by oral route every day Oral Taking Simvastatin 10 MG Tablet take 1 tablet by mouth every day Oral Taking Aspirin Adult Low Strength 81 MG Tablet Delayed Release Oral every day Taking GNP Vitamin D Super Strength 5000 UNIT Tablet Oral every day , Notes to Pharmacist: *Pick strength-form from [facility] for eRX*Taking Farxiga 5 MG Tablet take 1 tablet by mouth every day Oral Taking METOPROLOL TARTRATE 25 MG TAB , Notes to Pharmacist: *Reorder from [facility] for eRx and Interaction Alerts*Taking CIPROFLOXACIN 0.3% EYE DROP , Notes to Pharmacist: *Reorder from [facility] for eRx and Interaction Alerts*Taking PREDNISOLONE AC 1% EYE DROP , Notes to Pharmacist: *Reorder from [facility] for eRx and Interaction Alerts*Taking FLUZONE HIGH-DOSE SYR , Notes to Pharmacist: *Reorder from [facility] for eRx and Interaction Alerts* * Allergies: O rphenadrine Citrate: Allergy - Onset Date 11/01/2017 * * Date:
--- OUTSIDE RECORDS SUMMARY | 2025-08-08 11:30 | XMS_ITS | Encounter Summary ---
Author Organization [facility] Address [address] [place] [address] Care Team Providers Care Tax Attorney Name Role Phone Maria Lloyd MD Primary Care Provider [phone] Reason for Referral * Imaging (Routine) - Pending Review Specialty Diagnoses / Procedures Referred By Contac t Referred To Contact Radiology Diagnoses PAD (peripheral artery disease) ([facility] V24) Procedures Vascular US duplex lower extremity arteries bilateral with FAIZA Yovany Garcia MD [address] [place] [address] Phone: tel: fax: [facility] [address] [place] [phone] Phone: tel: Referral ID Status Reason Start Date Expiration Date V isits Requested Visits Authorized [id number] Pending Review 08/08/2025 08/08/2026 1 1 Reason for Visit * Reason Comments Peripheral Vascular Disease Encounter Details Date Type Department Care Team (Late st Contact Info) Description 08/08/2025 11:30 AM EST Office Visit Vascular Surgery - [place] [address] [place] [phone] Yovany Garcia MD [address] [place] [phone] PAD (peripheral artery disease) ([facility] V24) (Primary Dx) Social History Tobacco Use Types Packs/Day Years Used Date Smoking Tobacco: Former Cigarettes 2 Q uit: 07/06/1998 Smokeless Tobacco: Never Alcohol [...] care for your loved ones. For example, children counselor or elderly care for an older adult? [...] Sign Reading Time Taken Comments Blood Pressure 100/50 08/08/2025 11:28 AM EST Pulse 92 08/08/2025 11:28 AM EST Temperature - - Respiratory Rate 16 08/08/2025 11:28 AM EST Oxygen Saturation - - Inhaled Oxygen Concentration - - Weight 82.6 kg (182 lb) 08/08/2025 11:28 AM EST Height 167.6 cm (5' 6 ) 08/08/2025 11:28 AM EST Body Mass Index 29.38 08/08/2025 11:28 AM EST documented in this encounter Progress Notes * Yovany Garcia MD - 08/08/2025 11:30 AM EST PATIENT: Maryjo Peralta ENCOUNTER: 08/08/2025 EMRN: [id number] : 1945 PCP: Maria Lloyd MD CHIEF COMPLAINT: Peripheral Vascular Disease HPI: This 79 y.o. 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 Patient is s/p angioplasty and intravascular lithotripsy of bilateral common iliacarteries and left DEEPTI stent placement (Omnilink 8 x 29 mm balloon expandable stent post-dilated with 9 x 20 mm [place]) on 02/20/24. In May 2024, she sustained a traumatic right second toe wound which healed with course of oral antibiotics and antibiotic ointment (Keflex and trip antibiotic ointment). No right lower extremity angiogram was recommended. Patient had monophasic waveforms in bilateral lower extremities distally.She underwent CTA. See findings below. She is on twice daily dose of 50 mg of cilostazol. but was unable to tolerate 100 mg twice daily. She claims her leg pain has improved. She is now able to walk up stairs. Patient has bilateral calf claudication, left worse than right. She claims she is able towalk 15 to 30 minutes in a store pushing a cart. However, she claims that once she hits 1000 feet her calf pain is severe and she can no longer walk. She denies rest pain in toes, ulcers or gangrene.She is currently being seen 1 time per week at [facility] in [place] She has prior carotid duplex and arterial duplex during her prior visit. She denies any slurred speech, facial droop, ipsilateral body weakness or amaurosis fugax. She denies any dizziness or syncopal episodes. She is on dual antiplatelet therapy on a statin. PAST MEDICAL HISTORY: Patient Active Problem List Diagnosis Vitamin D deficiency Vitamin B12 deficiency Peripheral vascular disease ([facility] V24) Coronary artery disease Diabetes mellitus ([facility] V24, [facility] V28) Mixed hyperlipidemia Primary hypertension Stenosis of carotid artery Age-related osteoporosis without current pathological fracture PAST SURGICAL HISTORY: Past Surgical History: Procedure Laterality Date CARDIAC SURGERY PROCEDURE:CARDIAC SURGERY EYE SURGERY PROCEDURE:EYE SURGERY OTHER SURGICAL HISTORY 02/20/2024 PROCEDURE: HI SLCTV CATHJ 3RD+ ORD SLCTV ABDL PEL/LXTR BRNCH OTHER SURGICAL HISTORY 02/20/2024 PROCEDURE: X-RAY EXAM OF ARM/LEG ARTERY OTHER SURGICAL HISTORY 02/20/2024 PROCEDURE: HI REVASCULARIZATION ILIAC ARTERY ANGIOP 1ST VSL OTHER SURGICAL HISTORY 02/20/2024 PROCEDURE: HI REVSC OPN/PRQ ILIAC ART W/STNT PLMT & ANGIOPLSTY OTHER SURGICAL HISTORY Right 02/20/2024 PROCEDURE: HI REVASC INTRAVASC LITHOTRIPSY OTHER SURGICAL HISTORY Left 02/20/2024 PROCEDURE: HI REVASC INTRA LITHOTRIP-STENT MEDICATIONS: Outpatient Medications Marked as Taking for the 08/08/25 encounter (Office Visit) with Yovany Garcia MD Medication Sig Dispense Refill ammonium lactate (LAC-HYDRIN) [...] tablet 1 cilostazoL (PLETAL) 50 mg tablet TAKE 1 TABLET(50 MG) BY MOUTH TWICE DAILY 180 tablet 3 clopidogreL (PLAVIX) 75 mg tablet TAKE 1 [...] by mouth 1 (one) time each day. ALLERGIES: Allergies Allergen Reactions Gabapentin Unknown Confusion, forgetfulness Oxycodone Other hallucinations SOCIAL HISTORY: Social History Tobacco Use Smoking status: Former Current packs/day: 0.00 Average packs/day: 2.0 packs/day Types: Cigarettes Quit date: 07/06/1998 Years since quittin.1 Smokeless tobacco: Never Substance Use Topics Alcohol use: Not Currently Drug use: Not Currently FAMILY HISTORY: Family History Problem Relation Name Age of Onset Cancer Mother Hypertension Mother Other (Heart disease) Sister Breast cancer Sister Hyperlipidemia Brother Hypertension Brother Diabetes Brother Heart disease Brother ROS: GENERAL: No malaise, significant weight loss or fever NECK: No lumps, goiter, pain or significant neck swelling RESPIRATORY: No cough, wheezing or shortness of breath CARDIAC: No chest pain or palpitations GI: No abdominal discomfort MUSCULOSKELETAL: SEE HPI SKIN: No lesions, rash or itching NEURO: No persistent headache, syncope, seizures, weakness or numbness VASCULAR: SEE HPI PHYSICAL EXAM: Vitals: 08/08/25 1128 BP: 100/50 Pulse: 92 Resp: 16 Weight: 82.6 kg (182 lb) Height: 1.676 m (66 ) General: Alert and oriented x 3, no acute distress, well-nourished HEENT: Normocephalic atraumatic Neck: No JVD Chest: Respiratory effort normal Cardiac: Regular rate rhythm Extremities: -Right upper extremity: 2+ radial artery pulses palpable. -Left upper extremity: 2+ radial artery pulses palpable. -Right lower extremity: 1+ femoral artery pulse palpable. No palpable popliteal artery pulse. DP and PT pulses not palpable. Foot warm. No ulcers or gangrene. -Left lower extremity: 2+ femoral artery pulse palpable. No palpable popliteal artery pulse. DP andPT pulses not palpable. Foot warm. No ulcers or gangrene. Integumentary: No wounds Neuro: Grossly intact DIAGNOSTIC TESTING: CT Angio Abdominal Aorta w Runoff ( (Order [id number]) Status: Final result PACS Images Show images for CT Angio Abdominal Aorta w Runoff Study Result Narrative & Impression PROCEDURE: CT angiogram of the abdomen and [...] tibialis posterior, which is a primary inflow tothe foot. Left lower extremity: Patent stent in the common iliac artery. Multifocal luminal stenoses of the internal iliac artery, most prominent at the origin. Scattered calcified plaque in the external iliacartery without a significant stenosis. Multifocal calcified plaque in the profunda branch with a moderate origin stenosis. Severe multifocal luminal stenoses throughout the SFA, most prominent in thedistal thigh where there is a short segment of apparent occlusion and several adjacent collaterals.Moderate-severe multifocal luminal irregularity and narrowing throughout on the popliteal artery. Multifocal calcified plaque in the trifurcation vessels, most prominently affecting the MANAGER LAN, which appears largely occluded and reconstitutes via [...] comparison CT. Given features on today's arterial phaseimages and on the previous portal venous phase [...] MRI. -------- FINAL REPORT -------- Dictated By: Dionicio Yee Dictated Date: 03/05/2025 10:55 ET Assigned Physician: Dionicio Yee Reviewed and Electronically Signed By: Dionicio Yee Signed Date: 03/05/2025 11:21 ET Workstation ID: [id number] Transcribed By: Self Edit Transcribed Date: 03/05/2025 10:55 ET Maryjo Peralta Vascular US duplex carotid bilateral Order# [id number] Reading physician: Maulik Tate MD Ordering provider: ELLA Wolf Study date: 11/13/24 Patient Information Patient Name Maryjo Peralta Legal Sex Female (79 y.o.) Reason for Exam Priority: Routine Carotid artery stenosis Dx: Carotid stenosis, asymptomatic, bilateral [I65.23 (ICD-10-CM)] PACS Images Show images for Vascular US duplex carotid bilateral Procedure Rn Home Health/Clinician: Kirsty Myers Supporting Staff: Performing Physician/Midlevel: None Interpretation Summary Show Result ComparisonRIGHT. 1. There is atherosclerotic plaque in the right carotid system as noted below. 2. There is a 50-69% stenosis in the right internal carotid artery based on Doppler velocity. Of note, there is significant acoustic shadowing in the right ICA with can lead to underestimation of thedegree of stenosis. 3. The subclavian and vertebral arteries have normal Doppler flow patterns. LEFT. 1. There is atherosclerotic plaque in the left carotid system as noted below. 2. There is a 50-69% stenosis in the left internal carotid artery based on Doppler velocity. Of note, there is significant acoustic shadowing in the left ICA which can lead to underestimation of the degree of stenosis 3. The subclavian and vertebral arteries have normal Doppler flow patterns. The interpretation of this study was done following the diagnostic criteria recommendations contained in the IAC updated recommendations for carotid stenosis interpretation criteria document published by IAC in June 2023. Result History Order Result History Report Procedure Details A cabrera scale, color and doppler analysis ultrasound was performed. During the study longitudinal and transverse views were obtained. Pulsed wave doppler was performed. Cerebrovascular Findings Right Carotid The CCA has no significant plaque. The bifurcation has mild heterogeneous plaque. The proximal ICA has mild heterogeneous plaque. The ECA has no significant plaque. Right BP= 129/61 Vertebral flow is antegrade. Left Carotid The mid CCA has minimal plaque. The bifurcation has mild heterogeneous plaque. The proximal ICA has mild heterogeneous plaque. The ECA has mild plaque. Left BP not done due to sensor in arm. Vertebral flow is antegrade. Cerebrovascular Measurements Right PSV Right EDV Left PSV Left EDV CCA Prox 171 cm/s 8 cm/s 119 cm/s 6 cm/s CCA Mid 133 cm/s 11 cm/s 83 cm/s 11 cm/s CCA Dist 102 cm/s 9 cm/s 65 cm/s 11 cm/s ICA Prox 186 cm/s 18 cm/s 109 cm/s 26 cm/s ICA Mid 77 cm/s 13 cm/s 137 cm/s 26 cm/s ICA Dist 85 cm/s 20 cm/s 126 cm/s 19 cm/s ICA/CCA Ratio 1.8 no units 2.1 no units ECA 212 cm/s 6 cm/s 164 cm/s 6 cm/s Vertebral 74 cm/s 42 cm/s SCL Prox 143 cm/s 177 cm/s Segmental Pressure Measurements Right Brachial BP 129 mmHg All Reviewers List ELLA Wolf on 11/20/2024 06:59 Signed at 2201 EDT Maryjo Peralta Vascular US duplex lower extremity arteries bilateral with FAIZA Order# [id number] Reading physician: Yovany Garcia MD Ordering provider: ELLA Wolf Study date: 11/27/24 Patient Information Patient Name Maryjo Peralta Legal Sex Female (79 y.o.) Reason for Exam Priority: Routine peripheral vascular disease Dx: Peripheral vascular disease ([facility] V24) [I73.9 (ICD-10-CM)]; Abrasion of second toe of right foot, subsequent encounter [S90.414D (ICD-10-CM)] PACS Images Show images for Vascular US duplex lower extremity arteries bilateral with FAIZA Procedure Rn Home Health/Clinician: Kirsty Myers Supporting Staff: Performing Physician/Midlevel: None Interpretation Summary Show Result ComparisonRight: FAIZA 0.50. Normal amplitude PVR waveforms at the ankle. Near flat digit PPG waveforms. No significant inflow arterial occlusive disease 50-99% stenosis within the superficial femoral artery with extensive calcified plaque 50-99% stenosis within the deep femoral artery Three-vessel runoff in the calf. Left: FAIZA 0.47. Normal amplitude PVR waveforms at the ankle. Near flat digit PPG waveforms. No significant inflow arterial occlusive disease 50-99% stenosis within the common femoral artery 50-99% stenosis within the superficial femoral artery with extensive calcified plaque 50-99% stenosis within the deep femoral artery Three-vessel runoff in the calf. Result History Order Result History Report Procedure Details A cabrera scale, color and doppler analysis ultrasound was performed. During the study longitudinal views were obtained. Pulsed wave doppler was performed. Lower Extremity Arterial Findings Right Lower Arterial Duplex The distal external iliac artery has triphasic flow. The common femoral artery has triphasic flow. The profunda femoris artery has triphasic flow. The superficial femoral artery has moderate plaque present which is calcific. The superficial femoral artery has monophasic flow. The popliteal artery has monophasic flow. The anterior tibial artery has monophasic flow. The posterior tibial artery has monophasic flow. The mid peroneal artery has monophasic flow. Right Segmental Pressures Sensor on right arm, right BP not done. Left Lower Arterial Duplex The distal external iliac artery has triphasic flow. The common femoral artery has monophasic flow. The profunda femoris artery has monophasic flow. The superficial femoral artery has moderate plaque present which is calcific. The superficial femoral artery has monophasic flow. The popliteal artery has monophasic flow. The anterior tibial artery has monophasic flow. The posterior tibial artery has monophasic flow. The mid peroneal artery has monophasic flow. Left Segmental Pressures Left BP= 121/60 Iliac Artery Measurements PSV Rt EIA Prox 147 cm/s Rt EIA Dist 141 cm/s Lt EIA Prox 88 cm/s Lt EIA Dist 98 cm/s Right Lower Arterial Measurements PSV WRAPPER OFF Prox 114 cm/s PFA 311 cm/s SFA Prox 204 cm/s SFA Mid 127 cm/s SFA Dist 70 cm/s Pop Prox 173 cm/s Pop Dist 48 cm/s MANAGER LAN Prox 24 cm/s MANAGER LAN Mid 36 cm/s MANAGER LAN Dist 27 cm/s SUHAS Prox 19 cm/s SUHAS Mid 9 cm/s SUHAS Dist 7 cm/s Peroneal Mid 18 cm/s Left Lower Arterial Measurements PSV WRAPPER OFF Prox 377 cm/s PFA 122 cm/s SFA Prox 301 cm/s SFA Mid 115 cm/s SFA Dist 27 cm/s Pop Prox 53 cm/s Pop Dist 54 cm/s MANAGER LAN Prox 19 cm/s MANAGER LAN Mid 9 cm/s MANAGER LAN Dist 15 cm/s SUHAS Prox 27 cm/s SUHAS Mid 30 cm/s SUHAS Dist 39 cm/s Peroneal Mid 23 cm/s Segmental Pressure Measurements Right Left Brachial BP 121 mmHg Post Tibial BP 60 mmHg 57 mmHg Dorsalis Pedis BP 58 mmHg 54 mmHg FAIZA 0.5 0.47 All Reviewers List ELLA Osullivan on 11/27/2024 16:37 Signed at [address] [place] [address] Diagnostic Imaging Department [address] [place], [place] [id number] Patient: KATHRYNMARYJOO.B./Age/Sex: 1945 - 78 - F Unit#: [id number] [facility] Mnemonic/Ordering Site: [facility] Ordering Physician: YOVANY GARCIA MD US Carotid Duplex Bilat Complt - 06/17/24 - [id number] Report Status:Signed Carotid ultrasound, 06/18/2024. HISTORY: Bilateral stenosis. TECHNIQUE: Grayscale, color Doppler, and spectral Doppler ultrasound evaluation of the carotid and vertebral arteries in the neck. COMPARISON: 11/27/2023. FINDINGS: Grayscale ultrasound evaluation of the carotid arteries demonstrates bilateral atherosclerotic plaque, most prominent at the bulbs. There are elevated peak systolic velocities in the right carotid bulb measuring 192 cm/s, and in the proximal right internal carotid artery, measuring 183 cm/s. Mildly elevated peak systolic velocity of 129 cm/s in the proximal left internal carotid artery. Antegrade flow with normal spectral Doppler tracings in the vertebral arteries. IMPRESSION: Atherosclerotic plaque in both carotid bulbs, 50-69% stenosis of both proximal internal carotid arteries. Dictating Physician: DIONICIO YEE MD Electronically Signed by: DIONICIO YEE MD Dic Date/Time: 06/18/24816 Sign date/Time: 06/18/24 [id number] [facility] Diagnostic Imaging Department [address] [place] [address] Patient: KATHRYNMARYJO /Age/Sex: 1945 - 78 - F Unit#: [id number] Location/Status: [facility]/REG CLI Mnemonic/Ordering Site: [facility]/SPUS Ordering Physician: JOHN GARCIA MD US FAIZA Waveform Analysis - [id number] Report Status:Signed Indication: Claudication. Risk factors including hypertension, hyperlipidemia and diabetes Prior relevant imaging studies: FAIZA examination dated December 26, 2023 FINDINGS: Bilateral ankle to brachial indices obtained. Right posterior tibial index 0.54 Right dorsalis pedis index 0.49 Right digital index 0.32 Left posterior tibial index 0.50 Left dorsalis pedis index 0.55 Left digital index toes 0.32 Abnormal bilateral Doppler waveforms. IMPRESSION: Abnormal bilateral FAIZA examination. No significant change from the prior study. Dictating Physician: VERITO BARNES MD Electronically Signed by: VERITO BARNES MD Dic Date/Time: 06/17/24 1615 Sign date/Time: 06/17/24 [id number] [facility] Diagnostic Imaging Department [address] [place] [address] Patient: CHRISTIANO PERALTAEVANGELISTA AlvesB./Age/Sex: 1945 - 78 - F Unit#: [id number] Location/Status: [facility] Mnemonic/Ordering Site: [facility] Ordering Physician: JOHN GARCIA MD Lower Extrem Art Scan Bilat - 06/14/24907 Report Status:Signed INDICATION: Peripheral arterial disease TECHNIQUE: Arterial duplex imaging obtained of both lower extremities. Prior relevant imaging studies: December 26, 2023. Prior abdominal aortography from February 20, 2024 reviewed as well as CTA of the abdomen and pelvis from May 22, 2024. Right leg: Common femoral artery: Mildly elevated velocity in the common femoral artery with calcified plaque noted. Velocity measures 190 cm/s with monophasic waveform. Superficial femoral artery: Significant diffuse plaque along the SFA with velocity up to 218 cm/s proximally and down to 44 cm/s distally with monophasic flow. Popliteal artery: Slow flow along the mid to distal SFA measuring 48 cm/s distally. Posterior tibial artery: Monophasic flow throughout with velocity measuring 37 cm/s distally. Anterior tibial artery: Slow monophasic segmental flow throughout measuring 9 cm/s distally. Pleasenote that images 41 through 44 are mislabeled as posterior tibial artery with a should be labeled as anterior tibial artery. Left leg: Common femoral artery: Significant plaque without functional velocity up to 464 cm/s distally extending into the proximal SMA and profunda femoris vessels. Superficial femoral artery: Monophasic flow throughout with velocity measuring up to 185 cm/s proximally, 293 cm/s mid vessel up to 142 cm/s distally suggestive of multiple tandem stenoses. Popliteal artery: Monophasic flow throughout measuring 43 cm/s. Small caliber vessel distally. Posterior tibial artery: Significantly diseased posterior tibial artery with segmental very slow monophasic flow. Anterior tibial artery: Slow monophasic flow throughout measuring 41 cm/s. IMPRESSION: Right leg: Mild to moderate distal common femoral artery stenosis suspected as well as diffusely diseased SFA. Significantly diseased anterior tibial artery. Left leg: Significant distal common femoral artery stenosis with disease extending into the proximal SFA and profunda femoris vessels. Diffusely diseased SFA. Posterior tibial artery occlusion. Dictating Physician: VERITO BARNES MD Electronically Signed by: VERITO BARNES MD Dic Date/Time: 06/17/24 1617 Sign date/Time: 06/17/24 [id number] Transthoracic Echo 11/24/2023 Normal left ventricular chamber size. Mild concentric left ventricular hypertrophy with discrete upper septal thickening. No LVOT obstruction seen. No obvious wall motion abnormalities though apex not well visualized (contrast was declined by patient). Indeterminate diastolic function. The right ventricle is normal in size and systolic function. Pulmonary artery systolic pressure could not be obtained. The atria are normal in size. No hemodynamically significant valve disease. See remainder of the report for additional findings. [facility] Diagnostic Imaging Department [address] [place] [id number] Patient: MARYJO PERALTA /Age/Sex: 1945 - 78 - F Unit#: [id number] Location/Status: [facility]/REG CLI Mnemonic/Ordering Site: [facility] Ordering Physician: YOVANY GARCIA MD Leg Arterial Study Bilatera - 12/26/23 - 1013 Report Status:Signed INDICATION: Peripheral vascular disease, peripheral arterial disease, bilateral claudication TECHNIQUE: Arterial duplex imaging obtained of both lower extremities. Prior relevant imaging studies: None Right leg: Diffuse atherosclerotic calcification. Common femoral artery: Moderate plaque with velocity up to 201 cm/s with biphasic Superficial femoral artery: Significant plaque along the mid to distal SFA with velocity down to 3 5 cm/s in the mid SFA with monophasic waveform. Popliteal artery: Significant plaque with velocity up to 141 cm/s proximally and down to 40 cm/s distally with monophasic flow. Posterior tibial artery: Monophasic flow measuring up to 43 cm/s distally. Anterior tibial artery: Slow monophasic flow measuring up to 20 cm/s distally. Left leg: Diffuse atherosclerotic calcification. Common femoral artery: At least moderate plaque with velocity measuring 108 cm/s with monophasic waveform Superficial femoral artery: Diffuse atherosclerotic disease with velocity measuring 224 cm/s proximally and 61 centimeters per second distally with monophasic waveform. Popliteal artery: Diffuse plaque with small caliber vessel distally with velocity up to 93 cm/s with monophasic waveform. Posterior tibial artery: Monophasic slow flow measuring 22 cm/s distally. Anterior tibial artery: Monophasic flow measuring 41 cm/s distally. IMPRESSION: Right leg: Significant common femoral artery stenosis with significant more proximal disease suspected. Tandem stenoses suspected along the mid to distal SFA as well as popliteal artery. Left leg: Significant common femoral artery stenosis with significant more proximal disease suspected. Tandem stenoses suspected along the proximal and distal SFA as well as mid to distal popliteal artery. Consider CTA of the aorta and lower extremities for further evaluation. Dictating Physician: VERITO BARNES MD Electronically Signed by: VERITO BARNES MD Dic Date/Time: 12/28/23 1108 Sign date/Time: 12/28/[id number] [facility] Diagnostic Imaging Department [address] [place] [address] Patient: MARYJO PERALTA /Age/Sex: 1945 - 78 - F Unit#: [id number] [facility] Mn[facility]onic/Ordering Site: [facility] Ordering Physician: YOVANY GARCIA MD FAIZA Waveform Analysis - 12/26/23 - 1013 Report Status:Signed Indication: Claudication. Risk factors including hypertension, hyperlipidemia and diabetes Prior relevant imaging studies: None FINDINGS: Bilateral ankle to brachial indices obtained. Right posterior tibial index 0.48 Right dorsalis pedis index 0.28 Right digital index 0.21 Left posterior tibial index 0.41 Left dorsalis pedis index 0.41 Left digital index toes 0.16 Abnormal Doppler waveforms as well as pulse volume recordings. IMPRESSION: Significantly abnormal bilateral FAIZA examination. Dictating Physician: VERITO BARNES MD Electronically Signed by: VERITO BARNES MD Dic Date/Time: 12/28/23 1100 Sign date/Time: 12/28/[id number] [facility] Diagnostic Imaging Department [address] [place] [id number] Patient: MARYJO PERALTA /Age/Sex: 1945 - 77 - F Unit#: [id number] Location/Status: SPDIUS/REG CLI Mnemonic/Ordering Site: AORTA/SPUS Ordering Physician: YOVANY GARCIA MD US Aorta Renal Aorta Nodes - 11/27/23 - 1100 Report Status:Signed History: Aortoiliac disease. The patient is a 77-year-old insulin-dependent diabetic former smoker with hypertension and hyperlipidemia. Comparison: No comparison imaging at this institution. Findings: Real-time imaging of the abdomen, limited to the abdominal aorta, was performed. The abdominal aorta is normal in caliber, measuring 2.4 cm AP proximally, 1.8 cm in the midportion,and 1.3 cm distally. Atherosclerotic calcification is seen within the wall of the aorta. The proximal common iliac diameters measure 0.8 cm bilaterally. There is markedly elevated peak systolic velocity in the proximal left iliac artery, measuring up to 373 cm/s, indicating an underlyinghemodynamically significant stenosis. The left iliac artery/aortic ratio is elevated at 2.3. Peak systolic velocities are normal in the right proximal iliac artery. The periaortic soft tissues are unremarkable. Impression: 1. No abdominal aortic aneurysm identified. 2. Hemodynamically significant stenosis in the proximal left common iliac artery based on peak systolic velocity criteria. Dictating Physician: CRISTI ROA MD Electronically Signed by: CRISTI ROA MD Dic Date/Time: 11/28/23 1004 Sign date/Time: 11/28/[id number] [facility] Diagnostic Imaging Department [address] [place] [address] Patient: MARYJO PERALTA /Age/Sex: 1945 - 77 - F Unit#: [id number] Location/Status: [facility]/REG CLI Mnemonic/Ordering Site: [facility] Ordering Physician: YOVANY GARCIA MD Carotid Duplex Bilat Complt - 11/27/23 - 1130 Report Status:Signed HISTORY: 77-year-old insulin-dependent diabetic, former smoker, with hypertension and hyperlipidemia. History of carotid stenosis. COMPARISON: Previous exams performed in [place] are not available. TECHNIQUE: Duplex and color Doppler imaging of the bilateral extracranial carotid arterial systems was performed. FINDINGS: Right: Cabrera scale images show bilateral intimal thickening and moderate calcified plaque in the carotid bulb. The peak systolic velocity is 152.9 cm/sec in the proximal internal carotid. Right CCA 84.2 cm/sec Right ECA 147.5 cm/sec Ratio of right ICA/CCA 1.8 Left: Cabrera scale images show diffuse intimal thickening and moderate calcified plaque in the carotid bulb. The peak systolic velocity is 77.4 cm/sec in the proximal internal carotid. Left CCA 72.3 cm/sec Left ECA 143.8 cm/sec Ratio of left ICA/CCA 1.1 There are normal end diastolic velocities bilaterally with antegrade flow in both vertebral arteries. IMPRESSION: 1. 50-69 percent diameter stenosis of the proximal right ICA based on peak systolic velocity criteria. 2. No hemodynamically significant left ICA stenosis. 3. Patent, antegrade vertebral arteries. Measurement of carotid stenosis is based on velocity parameters that correlate the residual internal carotid diameter with [place] Symptomatic Carotid Endarterectomy Trial (NASCET)-based stenosis levels and velocity criteria are extrapolated from diameter data as defined by the Society of Radiologists in Ultrasound Consensus Conference Radiology 2003; 229;340-346.? Dictating Physician: CRISTI ROA MD Electronically Signed by: CRISTI ROA MD Dic Date/Time: 11/28/23 1010 Sign date/Time: 11/28/23 [id number] 0 I independently reviewed the studies along with the images. ASSESSMENT: 1. PAD (peripheral artery disease) ([facility] V24) PLAN: 79 y.o. female with PAD s/p angioplasty and intravascular lithotripsy of bilateral common iliac arteries and left common iliac artery stent placement on 02/20/24. She had adequate arterial supply to heal right second toe wound. She has bilateral severe SFA disease. Symptoms do not warrant vascular intervention at this time. She was intolerant of increased dose of cilostazol to 100 mg p.o. twice daily. At this juncture in time we will have the patient follow-up in 6 months for reevaluation with repeat bilateral extremity arterial duplex. Patient has asymptomatic bilateral 50 to 69% stenosis, possibly more given calcium artifact at the bulb. Repeat carotid duplex ordered for 1 year. Patient will contact the office prior to her next scheduled appointment with any questions or concerns. I spent 33 minutes in an encounter with this patient, including time spent with patient, chart review, ordering diagnostic studies, and documentation. documented in this encounter Plan of Treatment Upcoming Encounters Date Type Department Care Team (Late st Contact Info) Description 08/15/2025 3:00 PM EST Treatment Outpatient [address] [phone] Rupert Cha, PT [address] [place] [address] 08/20/2025 4:30 PM EST Office Visit Adult Medicine [place] [facility] [address] [place] [address] Maria Lloyd MD [address] [place] [address] 08/26/2025 2:00 PM EST Office Visit Endocrinology [address] [phone] Yue Lloyd PA [address] [place] [address] 09/11/2025 11:30 AM EST Nutrition Internal Medicine [facility] 175 [facility] [address] [place] [address] Dorinda Cedeño, LALO 175 [place] [phone] 10/28/2025 11:00 AM EST Office Visit Orthopedic Surgery [facility] 250 175 [facility] [address] [place] [phone] Christopher Arshad, DPShilo 175 [facility] 250 [place] [address] 11/27/2025 10:45 AM EDT Ancillary Procedure [facility] 101 300 [facility] 101 [place] [address] 02/06/2026 1:30 PM EDT Office Visit Vascular Surgery - [place] 300 [facility] [address] [place] [phone] Yovany Garcia MD [address] [place] [phone] Scheduled Orders Name Type Priority Associated Diagnoses Order Schedule Vascular US duplex lower extremity arteries bilateral with FAIZA Vascular Ultrasound Routine PAD (peripheral artery disease) ([facility] V24) 1 Occurrences starting 08/08/2025 until 08/08/2026 documented as of this encounter Goals Goal Patient Goal Type Associated Problems Recent Progress Patient-Stated? Author LTG's 12 visits General Yes Christopher Benz, PT Note: Pt will demonstrate 10 reps or more during 30 SCS Test. Pt will demonstrate a 1 grade or better improvement in B LE strength. Pt will report a 20 min increase in her walking tolerance. Pt will be Independent and compliant with final HEP. documented as of this encounter Visit Diagnoses Diagnosis PAD (peripheral artery disease) (CMS/HCC V24)- Primary Unspecified peripheral vascular disease documented in this encounter Additional Health Concerns Assessment Noted Time PHQ-9 Depression Total Score: 1 11/25/19 25 1:11 PM EDT documented as of this encounter Care Teams Tax Attorney Relationship Specialty Start Date End Date Maria Lloyd MD [address] [place] [phone] PCP - General 07/19/23 documented as of this encounter
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
[2025-08-12 11:13] VITALS: BP 116/64; PULSE 96; RESP 16; O2SAT 100; BMI 29.5
--- OUTSIDE RECORDS SUMMARY | 2025-08-12 14:39 | XMS_ITS | Patient Health Record ---
Author Organization [facility] Address [address] [facility] [address] [place] [address] Care Team Providers Care Residential Counselor Name Role Phone Kian Giron Primary Care Provider Unavailab le Migration, Provider Unavailable Unavailable Reason For Referral No Information Medications Medication SIG (Take, Route, Frequency, Duration) Notes Start Date End Date Status metFORMIN HCl 1000 MG Tablet take 1 tablet by mouth twice daily Oral 09/14/2017 Active Furosemide 20 MG Tablet Oral 10/06/2017 Active Farxiga 5 MG Tablet take 1 tablet by mouth every day Oral 09/05/2017 Active METOPROLOL TARTRATE 25 MG TAB *Reorder from wywy for eRx and Interaction Alerts* 07/05/2017 Active Glimepiride 4 MG Tablet Oral 07/05/2017 Active Simvastatin 10 MG Tablet take 1 tablet by mouth every day Oral 09/05/2017 Active Multi-Vitamin Tablet take 1 tablet by oral route every day Oral Active CIPROFLOXACIN 0.3% EYE DROP *Reorder from wywy for eRx and Interaction Alerts* 07/29/2017 Active Atorvastatin Calcium 40 MG Tablet Oral 07/05/2017 Active PREDNISOLONE AC 1% EYE DROP *Reorder from wywy for eRx and Interaction Alerts* 07/29/2017 Active GNP Vitamin D Super Strength 5000 UNIT Tablet Oral every day *Pick strength-form from ParametricMYOMO for eRX* Active FLUZONE HIGH-DOSE SYR *Reorder from ParametricMYOMO for eRx and Interaction Alerts* 05/26/2017 Active Aspirin Adult Low Strength 81 MG Tablet Delayed Release Oral every day Active Famotidine 20 MG Tablet Oral 07/05/2017 [...] Diagnosis Migrated_Facility 0 0 04/12/2025 Provider Migration Migrated_Facility 0 0 04/13/2025 Provider Migration Plan Of Treatment No Information Insurance Providers Payer Name Payer Address Payer Phone Subscriber Number Group Number Insured Name Patient Relationship to Insured Coverage Start Date Coverage End Date [facility] [address] [address] [place] [address] [id number] NICOLAS PERALTA Self - patient is the insured Medical (General) History Surgical History Surgery Date(Month/Year) Unlisted px cardiac surgery (75643) 2V C ABG: JASON WHITE-OM1 02/08/2016
--- OUTSIDE RECORDS SUMMARY | 2025-08-12 14:39 | XMS_ITS | Clinical Summary ---
Author Organization [facility] Prior to 01/25/[address] [place] [address] Care Team Providers Care Forcer Maker Name Role Phone Unavailable Primary Care Provider Unavailabl e Allergies Active Allergy Reactions Criticality Noted Date Comments Gabapentin Other (See Comments) High 11/11/2021 Confusion, forgetfulness Orphenadrine 01/31/2007 Other 02/02/2009 Other reaction(s): GI intolerance Sugar levels spiked Oxycodone Other (See Comments) 07/08/2021 hallucinations Medications Medication Sig Dispensed Refills Start Date End Date Status Lancets MISC Use to test blood sugar TID. 100 each 07/16/2021 Active glucose blood (Cool Blood Glucose Test Strips) test strip Use to test blood sugar TID. 100 each 5 07/16/2021 Active Insulin Pen Needle (Pen [place]) 32G X 4 MM MISC Inject 1 Units under the skin 4 (four) times a day. 100 each 07/16/2021 Active SYRINGE-NEEDLE, DISP, 3 ML (B-D [...] complication, without long-term current use of insulin ([facility]) Inject 1 Device under the skin every 14 (fourteen) days. 3 each 4 12/15/2022 Active Continuous Blood Gluc Embossing Machine Tender (FreeStyle Talat 2 [place]) DEVIIndications:Typ e 2 diabetes mellitus without complication, without long-term current use of insulin ([facility]) 1 Device by Does not apply route [...] Overview: History of CABG x2 June 2016; [facility] Carotid artery stenosis, symptomatic 07/31/2019 Hx of [...] Advance Directives For more information, please contact: [phone] Latest Code Status on File Code Status Date Activated Date Inactivated Comments Full Code 07/06/2021 5:04 PM 07/17/2021 3:16 AM This code status was ascertained in the following way: discussion with patient .
--- OUTSIDE RECORDS SUMMARY | 2025-08-12 14:40 | XMS_ITS | Patient Health Record ---
Author Organization [facility] Address [address] [place], [place] [id number] Care Team Providers Care Hemmer Lockstitch Name Role Phone BOONE MENDIOLA Primary Care Provider Unavailab CLAUDETTE Spaulding Unavailable [phone] JERMAINE LEVIN Unavailable Unavailable Reason For Referral No Information Medications Medication SIG (Take, Route, Frequency, Duration) Notes Start Date End Date Status Famotidine 20 MG Tablet 1 tablet at bedt cash as needed Orally Once a day; Duration: 30 day(s) Unknown Singulair 10 MG Tablet 1 tablet Orally O nce a day; Duration: 30 day(s) Unknown Pletal 100MG 1 tablet by mouth tw ice a day oral twice daily; Duration: 90 days Unknown Gabapentin 100 MG Capsule 1 capsule Oral ly Once a day; Duration: 30 day(s) Unknown Aspirin Adult 325 MG Tablet 1 tablet Orally Once a day; Duration: 30 day(s) Unknown NovoLIN 70/30 (70-30) 100 UNIT/ML Suspension as directed Subcutaneous Unknown Atenolol 50 MG Tablet 1 tablet Orally On ce a day; Duration: 30 day(s) Unknown Atorvastatin Calcium 40 MG Tablet 1 tablet Orally Once a day; Duration: 30 day(s) Unknown Trulicity 1.5 MG/0.5ML Solution Pen-injector as directed Subcutaneous Unknown glipiZIDE 10 MG Tablet 1 tablet 30 minut es before breakfast Orally Once a day; Duration: 30 day(s) Unknown metFORMIN HCl 1000 MG Tablet 1 tablet with a meal Orally Once a day; Duration: 30 day(s) Unknown Clindamycin HCl 300 MG Capsule 1 capsule Orally three times per day; Duration: 10 days Unknown Furosemide 20 MG Tablet 1 tablet Orally Once a day; Duration: 30 day(s) Unknown Social History Tobacco Use: Social History Observation Description Date Details (start date - stop date) Former Smoker NA - NA Social History Social History Social Info Question Answer Notes *Tobacco Use: Smoking Status: former smoker How long has it been since you last smoked? > 10 years Additional Details Category Social Info Options Details Social History Recreational drug use Esteban es Occupation Employed- delive ry Wheel Chair Dependence No Alcohol use Denies Residence status Lives at home a lone Uses walker/cane No Problems Problem Type SNOMED Code ICD Code Onset Dates Problem Status W/U Status Risk Notes Problem Diabetic peripheral neuropathy associated with type 2 diabetes mellitus (0987298893103) Type 2 diabetes mellitus with diabetic neuropathy, unspecified (E11.40) Active confirmed Problem Peripheral circulatory disorder associated with diabetes mellitus (884951028) Type 2 diabetes mellitus with other circulatory complications (E11.59) Active confirmed Problem Overweight (359957614) Overweight (E66.3) Active confirmed Problem Hyperlipidemia (23839557) Hyperlipidemia, unspecified (E78.5) Active confirmed Problem Essential hypertension (04083603) Essential (primary) hypertension (I10) Active confirmed Problem Angina (887243646) Atherosclerot ic heart disease of [place] coronary artery with unspecified angina pectoris (I25.119) Active confirmed Problem Left carotid artery occlusion (511541252886704) Occlusion and stenosis of left carotid artery (I65.22) Active confirmed Problem Occlusion and stenosis of multiple and bilateral cerebral arteries (775750001) Occlusion and stenosis of bilateral carotid arteries (I65.23) Active confirmed Problem Intermittent claudication of bilateral lower limbs co-occurrent and due to atherosclerosis (26417557585499473 ) Atherosclerosis of [place] arteries of extremities with intermittent claudication, bilateral legs (I70.213) Active confirmed Problem Headache (64784393) Headache (R51) Active confirmed Problem History of cerebrovascular accident without residual deficits (995837951) Personal history of transient ischemic attack (TIA), and cerebral infarction without residual deficits (Z86.73) Active confirmed Problem Nicotine dependence (08800927) Personal history of nicotine dependence (Z87.891) Active confirmed Plan Of Treatment Pending Test Test Name Order Date Comp. Metabolic Panel (14) 10/08/2019 [facility] LE Arterial/FAIZA 10/08/2019 [facility] FAIZA 10/08/2019 Insurance Providers Payer Name Payer Address Payer Phone Subscriber Number Group Number Insured Name Patient Relationship to Insured Coverage Start Date Coverage End Date [facility] [address] [address] [place], [place] [id number] NICOLAS PERALTA Self - patient is the insured 9 MEDICAID [address] [place], [place] [id number] NICOLAS PERALTA Self - patient is the insured 0 Medical (General) History Medical History History ICD Code Hyperlipidemia Hypertension Diabetes Mellitus Coronary Artery Disease (CAD) Peripheral Arterial Disease (PAD) TIA Obesity Surgical History Surgery Date(Month/Year) Coronary Artery Bypass Graft (CABG) oophorectomy Hospitalization History Reason Date(Month/Year) Admitted due to CABG x2 Admitted due to oophorectomy
--- OUTSIDE RECORDS SUMMARY | 2025-08-12 14:40 | XMS_ITS | Patient Health Record ---
Author Organization [facility] Address [address] [place] [address] Care Team Providers Care Whale Fisherman Name Role Phone BOONE MENDIOLA DO Primary Care Provider Dean Wang Unavailable [phone] CHAS BROCK MD Unavailable Unavailable Reason For [...] Status Risk Notes Problem Peripheral vascular disease (685072063) PAD (peripheral artery disease) (I73.9) Active confirmed Problem Arteriosclerosis of coronary artery bypass graft (993908733) 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 (I25.810) Active confirmed Problem Hyperlipidaemia (94124963) Hyperlipidemia, unspecified hyperlipidemia type (E78.5) Active confirmed Problem Type 2 diabetes mellitus with peripheral angiopathy (530600502) Type 2 diabetes mellitus with diabetic peripheral angiopathy without gangrene, without long-term current use of insulin (E11.51) Active confirmed Problem Mixed hyperlipidemia (930012381) Mixed dyslipidemia (E78.2) Active confirmed Plan Of Treatment Future Test Test Name Order Date Echocardiogram 04/07/2020 L CATH W/GRAPH 04/07/2020 Insurance Providers Payer Name Payer Address Payer Phone Subscriber Number Group Number Insured Name Patient Relationship to Insured Coverage Start Date Coverage End Date [employer] G[employer] [address] [address] [place] [address] [id number] NICOLAS PERALTA Self - patient is the insured MEDICAID TMHP [address] [place], [place] [id number] NICOLAS PERALTA Self - patient is the insured Medical (General) History Medical History History ICD Code TIA (transient ischemic attack) TIA (transient ischemic attack) G45.9 Surgical History Surgery Date(Month/Year) vaginal delivery 1985 Hospitalization History Reason Date(Month/Year) TIA 07/2019
--- OUTSIDE RECORDS SUMMARY | 2025-08-12 14:40 | XMS_ITS | Patient Health Record ---
Author Organization [facility], Address [address] [facility] [place] [id number] Support Name Relationship Address Phone Maryjo Lagunas Guarantor Unknown [phone] Reason For Referral No Information Medications Medication [...] W/U Status Risk Notes Problem Essential hypertension (44713948) Essential hypertension (I10) Active confirmed Problem Dyslipidemia (146470820) Dyslipidemia (E78.5) Active confirmed Problem Coronary arteriosclerosis (disorder) (10842108) CAD in [place] artery (I25.10) Active confirmed Problem Tachycardia (1215686) Tachycardia (R00.0) Active confirmed Problem Mitral valve disorder (20052805) Mitral valve disorder (I05.9) Active confirmed Plan Of Treatment No Information
--- OUTSIDE RECORDS SUMMARY | 2025-08-12 14:41 | XMS_ITS | Clinical Summary ---
Author Organization [address] Address [address] [place] [phone] Phone Care Team Providers Care Peripheral Edp Equipment Operator Name Role Phone Maria Lloyd MD Primary Care Provider [phone] Allergies Active Allergy Reactions Criticality Noted Date Comments Gabapentin Unknown High 11/11/2021 Confusion, forgetfulness Oxycodone Other 07/08/2021 hallucinations Medications ammonium lactate (LAC-HYDRIN) 12 % lotion Apply to soles of feet daily. At night wear socks to bed 12/25/19 24 Active aspirin 81 mg EC tablet Take 1 tablet (81 mg total) by mouth 1 (one) time each day. 09/07/19 24 Active losartan (COZAAR) 25 mg tablet Take 1 tablet (25 mg total) by mouth 1 (one) time each day. 07/01/20 24 Active ezetimibe (ZETIA) 10 mg tablet Take 1 tablet (10 mg total) by mouth 1 (one) time each day. 07/02/20 24 Active clopidogreL (PLAVIX) 75 mg tablet TAKE 1 TABLET BY MOUTH DAILY 30 tablet 11 09/24/19 25 Active blood-glucose sensor (FreeStyle Talat 2 Plus Sensor) device Use 1 sensor every 14 days 6 each 2 01/08/20 25 Active insulin lispro (HumaLOG KwikPen Insulin) 100 unit/mL injection pen Inject 24 Units into the skin 3 times daily. 45 mL 3 03/26/20 25 Active insulin glargine (Lantus Solostar U-100 Insulin) 100 unit/mL (3 mL) injection pen Inject 32 Units into the skin at bedtime, increase by 2 units every 3 days with a max dose of 36 units, if fasting sugars remain over 130 30 mL 1 03/26/20 25 Active atorvastatin (LIPITOR) 40 mg tablet Take 1 tablet (40 mg total) by mouth 1 (one) time each day. 90 tablet 1 04/01/20 25 Active fluticasone propionate (FLONASE) 50 mcg/actuation nasal spray Administer 2 sprays into each nostril 1 (one) time each day. Shake gently. Before first use, prime pump. After use, clean tip and replace cap. 16 g 1 04/01/20 25 Active levocetirizine (XYZAL) 5 mg tablet TAKE 1 TABLET BY MOUTH EVERY EVENING 90 tablet 1 04/21/20 25 Active cholecalcifero l (VITAMIN D-3) 50 mcg (2,000 unit) tablet Take 1 tablet (2,000 Units total) by mouth 1 (one) time each day. 90 tablet 1 05/13/20 25 Active ibandronate (BONIVA) 150 mg tablet TAKE 1 TABLET BY MOUTH EVERY 30 DAYS 3 tablet 1 07/17/20 25 Active cilostazoL (PLETAL) 50 mg tablet TAKE 1 TABLET(50 MG) BY MOUTH TWICE DAILY 180 tablet 3 07/28/20 25 Active ibandronate (BONIVA) 150 mg tablet TAKE 1 TABLET BY MOUTH EVERY 30 DAYS 3 tablet 1 01/11/20 25 025 Discontinued cilostazoL (PLETAL) 50 mg tablet Take 1 tablet (50 mg total) by mouth 2 (two) times a day. 025 Discontinued Active Problems Problem Noted Date Diagnosed Date Age-related osteoporosis wit hout current pathological fracture 11/29/2024 Stenosis of carotid artery 06/06/2024 Vitamin D deficiency 09/07/2023 Diabetes mellitus 09/07/2023 Peripheral vascular disease 12/03/2021 Vitamin B12 deficiency 09/14/2021 Coronary artery disease 07/31/2019 Overview (06/06/2024): History of CABG x2 June 2016; [facility] Mixed hyperlipidemia 07/30/2019 Primary hypertension 01/31/2011 Encounters Date Type Department Care Team Description 08/08/2025 11:30 AM EST Office Visit Vascular Surgery - [address] [place] [address] Doc Lantigua MD PAD (peripheral artery disease) ([facility] V24) (Primary Dx) 08/06/2025 1:00 PM EST Treatment Outpatient [address] [phone] Fabi Voss, GAS TRANSFER OPERATOR Difficulty walking (Primary Dx) 08/01/2025 11:00 AM EST Treatment Outpatient [address] [phone] Brennen Estrada, GAS TRANSFER OPERATOR Difficulty walking (Primary Dx) 07/30/2025 12:30 PM EST Treatment Outpatient [address] [phone] Fabi Voss, GAS TRANSFER OPERATOR Difficulty walking (Primary Dx) 07/29/2025 1:15 PM EST Office Visit Orthopedic Surgery [facility] [address] [facility] [address] [place] [address] Christopher Arshad DPM Controlled type 2 diabetes with neuropathy ([facility] V24, [facility] V28) (Primary Dx); PVD (peripheral vascular disease) ([facility] V24); Metatarsalgia of right foot; Dermatophytosis, nail; Ingrown left big toenail 07/22/2025 11:00 AM EST Treatment Outpatient Rehabilitation - [address] [phone] Fabi Voss, GAS TRANSFER OPERATOR Difficulty walking (Primary Dx) 07/16/2025 12:00 PM EST Treatment Outpatient [facility] - [address] [phone] Fabi Voss, GAS TRANSFER OPERATOR Difficulty walking (Primary Dx) 07/11/2025 10:30 AM EST Treatment Outpatient Rehabilitation [address] [phone] Christopher Benz, PT Difficulty walking (Primary Dx) 06/27/2025 12:30 PM EDT Treatment Outpatient [address] [phone] Fabi Voss, GAS TRANSFER OPERATOR Difficulty walking (Primary Dx) 06/20/2025 1:00 PM EDT Treatment Outpatient [address] [phone] Fabi Voss, GAS TRANSFER OPERATOR Difficulty walking (Primary Dx) 06/18/2025 3:00 PM EDT Treatment Outpatient [address] [phone] Tesha Marquez, GAS TRANSFER OPERATOR Difficulty walking (Primary Dx) 06/13/2025 1:00 PM EDT Treatment Outpatient [address] [phone] Fabi Voss, GAS TRANSFER OPERATOR Difficulty walking (Primary Dx) 06/10/2025 1:00 PM EDT Treatment Outpatient [address] [phone] Fabi Voss, GAS TRANSFER OPERATOR Difficulty walking (Primary Dx) 06/03/2025 10:00 AM EDT Evaluation Outpatient [address] [phone] Christopher Benz, PT Difficulty walking (Primary Dx) 05/27/2025 11:30 AM EDT Nutrition Internal Medicine [address] [phone] Dorinda Cedeño, LALO Type 2 diabetes mellitus with other specified complication, with long-term current use of insulin (CMS/HCC V24, CMS/HCC V28) (Primary Dx) 05/16/2025 [facility] [address] [phone] Maria Lloyd MD from Last 3 Months Immunizations Immunization Administration Dates Next Due Pfizer SARS-CoV-2 COVID-19, mRNA, LNP-S, preservative free 02/08/2021,12/26/2020 Surgical History Surgery Date Site/Laterality Comments CARDIAC SURGERY PROCEDURE:CARDIAC SURGERY EYE SURGERY PROCEDURE:EYE SURGERY OTHER SURGICAL HISTORY 02/20/2024 PROCEDURE: IL SLCTV CATHJ 3RD+ ORD SLCTV ABDL PEL/LXTR BRNCH OTHER SURGICAL HISTORY 02/20/2024 PROCEDURE: X-RAY EXAM OF ARM/LEG ARTERY OTHER SURGICAL HISTORY 02/20/2024 PROCEDURE: IL REVASCULARIZATION ILIAC ARTERY ANGIOP 1ST VSL OTHER SURGICAL HISTORY 02/20/2024 PROCEDURE: IL REVSC OPN/PRQ ILIAC ART W/STNT PLMT & ANGIOPLSTY OTHER SURGICAL HISTORY 02/20/2024 Right PROCEDURE: IL REVASC INTRAVASC LITHOTRIPSY OTHER SURGICAL HISTORY 02/20/2024 Left PROCEDURE: IL REVASC INTRA LITHOTRIP-STENT Medical History Medical History Date Comments Arthritis DX:Arthritis Coronary artery disease DX:Coron pallavi artery disease Diabetes mellitus (CMS/HCC V 24, CMS/HCC V28) DX:Diabetes mellitus (HCC) Hypertension DX:Hypertension Stroke (CMS/HCC V24, CMS/HCC V28) DX:Stroke (HCC) Provoked seizure (CMS/HCC V2 4, [facility]/HCC V28) 09/14/2021 DX:Provoked seizure (HCC) Tendinitis DX:Tendinitis [...] for your loved ones. For example, child welfare director or elderly care for an older adult? [...] Pulse 92 08/08/2025 11:28 AM EST Temperature 36.5 C (97.7 F) 04/14/2025 3:35 PM EDT Respiratory Rate 16 08/08/2025 11:28 AM EST Oxygen Saturation 98% 09/27/2024 11:07 AM EST Inhaled Oxygen Concentration - - Weight 82.6 kg (182 lb) 08/08/2025 11:28 AM EST Height 167.6 cm (5' 6 ) 08/08/2025 11:28 AM EST Body Mass Index 29.38 08/08/2025 11:28 AM EST Plan of Treatment Upcoming Encounters Date Type Department Care Team (Late st Contact Info) Description 08/15/2025 3:00 PM EST Treatment Outpatient Rehabilitation - [address] [phone] Rupert Cha, PT [address] [place] [address] 08/20/2025 4:30 PM EST Office Visit Adult Medicine Cylinder - [address] [phone] Maria Lloyd MD [address] [place] [address] 08/26/2025 2:00 PM EST Office Visit Endocrinology [address] [phone] Yue Lloyd PA [address] [place] [address] 09/11/2025 11:30 AM EST Nutrition Internal Medicine - [place] [address] [facility] [address] [place] [phone] Dorinda Cedeño, RD 175 [place] [phone] 10/28/2025 11:00 AM EST Office Visit Orthopedic Surgery [facility] [address] [facility] 250 [place] [phone] Christopher Arshad, DPShilo 175 [facility] 250 [place] [address] 11/27/2025 10:45 AM EDT Ancillary Procedure [facility] [address] [facility] 101 [place] [phone] 02/06/2026 1:30 PM EDT Office Visit Vascular Surgery - [place] [address] [facility] [address] [place] [phone] Doc Lantigua MD [address] [place] [phone] Health Maintenance Due Date Last Done Comments [...] 08/13/2034 08/13/2024, 03/22/2011 Breast Cancer Screening Discontinued 08/13/20, 08/01/2022, 08/01/2022, Additional history exists Depression Screening [...] on patient's age to complete this topic Goals Goal Patient Goal Type Associated Problems [...] be Independent and compliant with final HEP. Procedures Procedure Name Priority Date/Time Associated Diagnosis Comments EXTERNAL STRESS TEST 07/15/2025 HEMOGLOBIN A1C Routine 04/14/2025 4:43 PM EDT Type 2 diabetes mellitus with other specified complication, with long-term current use of insulin ([facility] V24, [facility] V28) LIPID PANEL WITH REFLEX TO DIRECT LDL Routine 04/14/2025 4:43 PM EDT Mixed hyperlipidemia CREATININE, SERUM Routine 02/25/2025 3:2 9 PM EDT Aorto-iliac disease ([facility] V24) MICROALBUMIN CREATININE URINE RATIO Routine 09/27/2024 12:09 PM EST Type 2 diabetes mellitus with other specified complication, with long-term current use of insulin ([facility] V24, [facility] V28) MG MAMMO DIGITAL SCREENING W KERMIT BILAT Routine 08/13/2024 11:35 AM EST Encounter for screening mammogram for breast cancer BD BONE DENSITY DXA AXIAL SKELETON Routine 08/13/2024 11:03 AM EST Encounter for screening for osteoporosis from Last 3 Months or Most Recently Relevant to Health Maintenance Results * External Stress Test (07/15/2025) Anatomical Region Laterality Modality Nuclear Medicine us Provider [facility] CV STRESS PROCEDURES Fin al Result * (ABNORMAL) Lipid panel with reflex to direct LDL (04/14/2025 4:43 PM EDT) Cholesterol 138 0 - 200 mg/dL LAB CHEMISTRY METHOD 04/14/2025 7:22 PM EDT [facility] Triglycerides 185(H) 0 - 150 mg/dL LAB CHEMISTRY METHOD 04/14/2025 7:22 PM EDT [facility] HDL 59 >=40 mg/dL LAB CHEMISTRY METHOD 04/14/2025 7:22 PM EDT [facility] LDL Calculated 42 0 - 100 mg/dL LAB CHEMISTRY METHOD 04/14/2025 7:22 PM EDT [facility] Comment:Estimated LDL Calcul ated using equation: Total cholesterol - HDL cholesterol - (Triglycerides/5) VLDL Cholesterol Trip 37 mg/dL LAB CHEMISTRY METHOD 04/14/2025 7:22 PM EDT [facility] Non HDL Chol. (LDL+VLDL) 79 <145 mg/dL LAB CHEMISTRY METHOD 04/14/2025 7:22 PM EDT [facility] Chol/HDL Ratio 2.3 0.0 - 4.4 LAB CHEMISTRY METHOD 04/14/2025 7:22 PM EDT [facility] Blood Venous blood specimen / Unknown Venipuncture / Unknown 04/14/2025 4:43 PM EDT 04/14/2025 4:43 PM EDT us Flaco JARAMILLO LAB BLOOD ORDERABLES Final Res ult [facility] [address] [place] [address], * (ABNORMAL) Hemoglobin A1c (04/14/2025 4:43 PM EDT) Hemoglobin A1C 7.8(H) <6.5 % LAB CHEMISTRY METHOD 04/14/2025 8:18 PM EDT [facility] Mean Bld Glu Estim. 177 mg/dL LAB CHEMISTRY METHOD 04/14/2025 8:18 PM EDT [facility] Blood Venous blood specimen / Unknown Venipuncture / Unknown 04/14/2025 4:43 PM EDT 04/14/2025 4:43 PM EDT us Janea JARAMILLO LAB BLOOD ORDERABLES Final Result Performing Organization Address [facility] Co de Phone Number [facility] [address] [place] [address], [place] [phone] * (ABNORMAL) Creatinine (02/25/2025 3:29 PM EDT) Creatinine 1.17(H) 0.50 - 1.10 mg/dL LAB CHEMISTRY METHOD 02/25/2025 6:34 PM EDT [facility] eGFR 48(L) >=60 mL/min/1. 73m2 LAB CHEMISTRY METHOD 02/25/2025 6:34 PM EDT [facility] Comment:Calculation based on the Chronic Kidney Disease Epidemiology Collaboration (CKD-EPI) equation refit without adjustment for race. Blood Venous blood specimen / Unknown Venipuncture / Unknown 02/25/2025 3:29 PM EDT 02/25/2025 3:29 PM EDT Doc Lantigua MD LAB BLOOD ORDERABLES Final Resu lt Performing Organization Address [facility] de Phone Number [facility] [address] [place] [address], [place] [phone] * (ABNORMAL) Microalbumin creatinine urine ratio (09/27/2024 12:09 PM EST) Creatinine, Urine 168.0 mg/dL LAB CHEMISTRY METHOD 09/27/2024 3:24 PM EST [facility] Microalb, Ur 61.5(H) 0.0 - 29.0 mg/L LAB CHEMISTRY METHOD 09/27/2024 3:24 PM EST [facility] Microalb/Crea t Ratio 37(H) <30 mg/g creat LAB CHEMISTRY METHOD 09/27/2024 3:24 PM EST [facility] Urine Urine specimen obtained by clean catch procedure / Unknown Non-blood Collection / Unknown 09/27/2024 12:09 PM EST 09/27/2024 12:09 PM EST us Yue JARAMILLO LAB URINE ORDERABLES Final Resul t [facility] [address] [place] [address], [place] [phone] * MG Mammo Digital Screening w Kermit bilat (08/13/2024 11:35 AM EST) Anatomical Region Laterality Modality Breast Bilateral Mammography 08/13/2024 7:05 PM EST Impressions 08/13/2024 7:06 PM EST No mammographic evidence of malignancy. BREAST DENSITY: B - There are scattered areas of fibroglandular density. BI-RADS CATEGORY: 1 - NEGATIVE RECOMMENDATION: Screening bilateral mammogram is recommended in 1 year. MAMMO LOCATION: [facility], [address] [place] [address], [phone], . -------- FINAL REPORT -------- Dictated By: Laury Junior Dictated Date: 08/13/2024 19:05 ET Assigned Physician: Laury Junior Reviewed and Electronically Signed By: Laury Junior Signed Date: 08/13/2024 19:06 ET Workstation ID: [id number] Transcribed By: Self Edit Transcribed Date: 08/13/2024 [...] is recommended in 1 year. MAMMO LOCATION: [facility], [address] [place] [address], [address], . -------- FINAL REPORT -------- Dictated By: Laury Junior Dictated Date: 08/13/2024 19:05 ET Assigned Physician: Laury Junior Reviewed and Electronically Signed By: Laury Junior Signed Date: 08/13/2024 19:06 ET Workstation ID: [id number] Transcribed By: Self Edit Transcribed Date: 08/13/2024 19:05 ET us Maria Lloyd MD IMG BI PROCEDURES Final Result * BD Bone Density DXA Axial Skeleton (08/13/2024 11:03 AM EST) Anatomical Region Laterality Modality Wrist, Hip, L-spine Bone Densito metry 08/13/2024 11:1 1 AM EST Impressions 08/13/2024 11:12 AM EST Normal bone mineral density by WHO criteria. [facility] Department of Internal Medicine recommends using [...] alternative screening schedule based on esthela Goncalves., [facility] September 15, 2011 for patients with osteopenia [...] Signed Date: 08/13/2024 11:12 ET Workstation ID: [id number] Transcribed By: Self Edit Transcribed Date: 08/13/2024 [...] bone mineral density by WHO criteria. [facility] Department of Internal Medicine recommendsusing National [...] alternative screening schedule based on esthel[facility] Goncalves., [facility] for patients with [facility]openia (based on [...] Signed Date: 08/13/2024 11:12 ET Workstation ID: [id number] Transcribed By: Self Edit Transcribed Date: 08/13/2024 11:11 ET Maria Lloyd MD IMG DXA PROCEDURES Final Result from Last 3 Months or Most Recently Relevant to Health Maintenance Insurance [employer] MEDICARE [place]ICAID - [place] Care Teams Peripheral Edp Equipment Operator Relationship Specialty Start Date End Date Maria Lloyd MD [address] [place] [phone] PCP - General 07/19/23
== END 2025-08-12 11:35 | disposition home or self-care (01) ==
LOC: HO.HSM 11:06
PROVIDERS: PCP Internal Medicine; Visit Provider Nurse Practitioner
DX: R40.0 Somnolence (principal); G44.229 Chronic tension-type headache, not intractable; R06.83 Snoring
CPT/HCPCS: 99213

== ENCOUNTER → 2025-08-12 11:06 | Outpatient (BNVA) | payer OTHER, SELFPAY | PROVIDERS: PCP Internal Medicine; Visit Provider Nurse Practitioner | DX: R40.0 Somnolence (principal); G44.229 Chronic tension-type headache, not intractable; R06.83 Snoring | CPT/HCPCS: 99212 ==